=== PATIENT | female | born 1960 | race Caucasian/White ===

== ENCOUNTER 2018-07-17 16:22 | Outpatient (CLI) | payer MEDICAID, SELFPAY ==
--- NOTE | 2018-07-17 10:06 | DI.RAD_ITS ---
SYMPTOM/DIAGNOSIS: HEMOPTYSIS, URI R04.2, J06.9 PA AND LATERAL CHEST: Comparison is made with 26 Aug 2017. The heart size is within normal limits. The lungs appear clear. No infiltrate or effusion is seen. No mass visible. IMPRESSION: Negative chest x-ray.
== END 2018-07-17 16:42 ==
PROVIDERS: PCP Nurse Practitioner Family; Visit Provider Nurse Practitioner Family
DX: R04.2 Hemoptysis (principal); J06.9 Acute upper respiratory infection, unspecified
CPT/HCPCS: 71046

== ENCOUNTER 2018-12-24 11:32 | Outpatient (REF) | payer MEDICAID, SELFPAY ==
--- NOTE | 2018-12-24 10:30 | PAPFT_PTH ---
PATIENT: Susy So LOC: [facility] U#:[id number] AGE/SX: 58/F ROOM: RE12/24/[address]: Antoinette Harrison : 1960 BED: DIS: 12/24/2018 SPEC #: [id number] RECD: 12/25/18 13:07 STATUS: YEVGENIY REGalilea #: [id number] ANURADHA: 12/24/18 10:[address]: Antoinette Harrison DEPT: [facility] Cytology RECD BY: Grace Mccormick ENTERED: 12/25/18 13:07 SP TYPE: PAPFT OTHR DR: Paulina Alston Tissues: 1 - CX/ENDOCX FOR PAP SMEARS Procedures: PAP THIN PREP/UVM Screening HPV DNA PROBE Comments: [id number]
== END 2018-12-24 11:52 ==
LOC: NCHCN 11:32
PROVIDERS: PCP Nurse Practitioner Family; Visit Provider Family Medicine
DX: Z12.4 Encounter for screening for malignant neoplasm of cervix (principal); Z01.419 Encounter for gynecological examination (general) (routine) without abnormal findings; Z11.51 Encounter for screening for human papillomavirus (HPV); Z00.00 Encounter for general adult medical examination without abnormal findings
CPT/HCPCS: 88142; 87624

== ENCOUNTER 2019-11-15 13:10 | Outpatient (REF) | payer MEDICAID, SELFPAY ==
[2019-11-15 21:06] LABS: ALT 135 U/L (14-59); AST 57 U/L (15-37); Albumin 3.9 g/dL (3.4-5.0); Alkaline Phosphatase 90 U/L (46-116); Anion Gap 9.8 mmol/L (3-11); BUN 14 mg/dL (7-18); Bilirubin, Total 0.4 mg/dL (0.2-1.0); CO2 29.2 mmol/L (21.0-32.0); CREATININE 0.62 mg/dL (0.55-1.02); Calcium 9.1 mg/dL (8.5-10.1); Chloride 104 mmol/L (98-107); Glucose 79 mg/dL (74-106); Sodium 143 mmol/L (136-145); Total Protein 7.5 g/dL (6.4-8.2)
[2019-11-15 21:51] LABS: Abs Immature Grans 0.01 k/cumm (0.0-0.09); Absolute Basophil Count 0.02 k/cumm (0.0-0.2); Absolute Eosinophil Count 0.33 k/cumm (0.0-0.7); Absolute Lymphocyte Count 2.64 k/cumm (1.2-3.4); Absolute Monocyte Count 0.63 k/cumm (0.11-0.7); Absolute Neutrophil Count 6.03 k/cumm (1.2-6.7); Basophils % 0.2; Eosinophils % 3.4; HCT 41.3 % (36.0-46.0); HGB 13.8 g/dL (12.0-15.5); Immature Grans % 0.1 %; Lymphocytes % 27.3; Mean Corp. HGB Concentration 33.4 g/dL (32.0-36.0); Mean Corpuscular Hemoglobin 32.2 pg (27.0-33.0); Mean Corpuscular Volume 96.5 fL (80-95); Mean Platelet Volume 10.7 fL (8.0-11.0); Monocytes % 6.5; Neutrophils % 62.5; Platelet Count 276 x1000/uL (130-400); RBC 4.28 m/cumm (4.00-5.20); White Blood Cell Count 9.66 k/cumm (4.4-10.8)
== END 2019-11-15 13:30 ==
LOC: NCHCN 13:10
PROVIDERS: PCP Nurse Practitioner Family; Visit Provider Nurse Practitioner Family
DX: R10.32 Left lower quadrant pain (principal); K59.00 Constipation, unspecified; R03.0 Elevated blood-pressure reading, without diagnosis of hypertension; F41.8 Other specified anxiety disorders; J44.9 Chronic obstructive pulmonary disease, unspecified; G25.81 Restless legs syndrome
CPT/HCPCS: 80053; 85025

== ENCOUNTER 2019-11-19 03:30 | Outpatient (CLI) | payer MEDICAID, SELFPAY ==
--- NOTE | 2019-11-19 11:15 | DI.CT_ITS ---
EXAM: CT ABDOMEN PELVIS W CLINICAL HISTORY: LLQ ABD PAIN, R10.32, CONSTIPATION,K59.00. TECHNIQUE: Imaging Protocol: Axial computed tomography images with coronal and sagittal reformatted images were created and reviewed CONTRAST MATERIAL: Intravenous: Omnipaque 350 Contrast volume:100 ml Oral: yes COMPARISON: RENAL COLIC WO CONTRAST from 10/27/2008 FINDINGS: ABDOMEN: Lung Bases: Normal where visualized. Liver: Liver is enlarged and shows fatty infiltration.. No measurable mass. Gallbladder and biliary tract: Status post cholecystectomy. No radiodense calculus or dilation. Pancreas: Normal density, no abnormal calcifications or inflammatory process. Spleen: Normal. Kidneys: Normal size, contour and axis. No radiodense stones or obstructive uropathy. No masses seen. Adrenal glands: No masses seen. Abdominal Aorta: Abdominal portion non-dilated. Lvqp-al-cfwtreno calcification. There is a fatty containing umbilical hernia. PELVIS: Bladder: Symmetric distention, no gross wall thickening. Bowel: Sigmoid anastomosis. There are few scattered diverticula. There is no evidence of diverticul itis. There is a moderate quantity of stool. No obstruction or bowel wall thickening. The appendix appears normal. Peritoneal cavity: No ascites, collection or mesenteric inflammatory response. Bones: Degenerative disc changes in the lower thoracic and lumbar spine.. Reproductive organs: Within normal limits. Lymph nodes: Unremarkable. Impression: Unremarkable CT scan of the abdomen and pelvis. DATA REPOSITORY: All CT scans at this facility are submitted to the National Radiology Data Registry (NRDR) Dose Index Registry (DIR) with the [employer] (ACR). RADIATION OPTIMIZATION: All CT scans at this facility use at least one of these dose optimization te chniques: automated exposure control; mA and/or kV adjustment per patient size (includes targeted exa ms where dose is matched to clinical indication); or iterative reconstruction.
[2019-11-19] MEDS: Normal Saline - Diluent 50 ML VIAL IV (11:30)
[2019-11-19] MEDS: Omnipaque 350 MG/ML 100 ML BTL IJ ×2 (11:30→11:31)
== END 2019-11-19 03:50 ==
PROVIDERS: PCP Nurse Practitioner Family; Visit Provider Nurse Practitioner Family
DX: R10.32 Left lower quadrant pain (principal); K59.00 Constipation, unspecified; K76.0 Fatty (change of) liver, not elsewhere classified; R16.0 Hepatomegaly, not elsewhere classified; K42.9 Umbilical hernia without obstruction or gangrene; Z90.49 Acquired absence of other specified parts of digestive tract
CPT/HCPCS: 74177; J3490

== ENCOUNTER 2019-12-02 13:19 | Outpatient (REF) | payer MEDICAID, SELFPAY | END 2019-12-02 13:39 | LOC: NCHCN 13:19 | PROVIDERS: PCP Nurse Practitioner Family; Visit Provider Family Medicine | DX: R30.0 Dysuria (principal) | CPT/HCPCS: 87086 ==

== ENCOUNTER 2019-12-18 00:15 | Outpatient (CLI) | payer MEDICAID, SELFPAY ==
--- NOTE | 2019-12-18 | DI.US_ITS ---
EXAM: US RENAL PELVIC TRANSVAGINAL CLINICAL HISTORY: LLQ ABD PAIN, R10.32, DYSURIA,R30.0 TECHNIQUE: Ultrasound performed using standard protocol. COMPARISON: Cardiac from 04/07/2017 FINDINGS: The kidneys are normal in size and shape. There is no evidence of a renal mass, hydronephrosis, or n ephrolithiasis. Urinary bladder is unremarkable in appearance with pre and post void urinary bladder volume estimated at 179 cc and 25 cc respectively. Ureteral jets are noted bilaterally in the urinary bladder. Patient is reportedly status post bilateral oophorectomy. Uterus is unremarkable in appearance. End ometrial stripe is homogeneous and 3 millimeters in thickness. No free fluid identified in the cul-d e-sac. IMPRESSION: Negative pelvic/renal ultrasound. Prior bilateral oophorectomy noted. DATA REPOSITORY:
== END 2019-12-18 00:35 ==
PROVIDERS: PCP Nurse Practitioner Family; Visit Provider Nurse Practitioner Family
DX: R10.32 Left lower quadrant pain (principal); R30.0 Dysuria; Z90.722 Acquired absence of ovaries, bilateral
CPT/HCPCS: 76770; 76830; 76856

== ENCOUNTER 2020-03-02 09:41 | Outpatient (CLI) | payer MEDICAID, SELFPAY ==
[2020-03-04 09:56] LABS: SARS-CoV-2 RNA Undetected (Undetected); SARS-CoV-2 Specimen Source Nasopharynx
== END 2020-03-02 10:01 ==
PROVIDERS: PCP Nurse Practitioner Family; Visit Provider Nurse Practitioner Family
DX: Z11.59 Encounter for screening for other viral diseases (principal)
CPT/HCPCS: U0003

== ENCOUNTER 2020-09-02 10:54 | Outpatient (REF) | payer MEDICAID, SELFPAY ==
[2020-09-03 15:11] LABS: COVID-19 RT-PCR UVMMC Result Negative (Negative)
== END 2020-09-02 11:14 ==
LOC: NCHCN 10:54
PROVIDERS: PCP Nurse Practitioner Family; Visit Provider Nurse Practitioner Family
DX: Z20.822 Contact with and (suspected) exposure to COVID-19 (principal)
CPT/HCPCS: U0003

== ENCOUNTER 2020-09-07 17:53 | Outpatient (REF) | payer MEDICAID, SELFPAY ==
[2020-09-09 17:18] LABS: COVID-19 RT-PCR UVMMC Result Negative (Negative)
== END 2020-09-07 18:13 ==
LOC: NCHCN 17:53
PROVIDERS: PCP Nurse Practitioner Family; Visit Provider Nurse Practitioner Family
DX: Z20.822 Contact with and (suspected) exposure to COVID-19 (principal)
CPT/HCPCS: U0003

== ENCOUNTER 2020-10-07 10:07 | Outpatient (REF) | payer MEDICAID, SELFPAY ==
[2020-10-07 13:55] LABS: Abs Immature Grans 0.02 10^3/uL (0.0-0.06); Absolute Basophil Count 0.03 10^3/uL (0.0-0.2); Absolute Eosinophil Count 0.38 10^3/uL (0.0-0.7); Absolute Lymphocyte Count 1.93 10^3/uL (1.2-3.4); Absolute Monocyte Count 0.47 10^3/uL (0.1-0.8); Basophils % 0.4; Eosinophils % 4.7; HCT 41.7 % (36.0-46.0); HGB 13.9 g/dL (11.2-15.7); Immature Grans % 0.2; Lymphocytes % 23.7; MCH 32.2 pg (27.0-33.0); MCHC 33.3 % (32.0-36.0); MCV 96.5 fL (80-95); MPV 10.9 fL (8.0-11.0); Monocytes % 5.8; Neutrophils % 65.2; Nucleated RBC 0 %; Platelet Count 236 10^3/uL (130-400); RBC 4.32 10^6/uL (3.93-5.22); RDW 12.2 % (11.7-14.6); WBC 8.13 10^3/uL (4.4-10.8)
[2020-10-07 14:49] LABS: ALT 89 U/L (14-59); AST 31 U/L (15-37); Albumin 3.8 g/dL (3.4-5.0); Alkaline Phosphatase 89 U/L (46-116); BUN 13 mg/dL (7-18); Bilirubin, Total 0.3 mg/dL (0.2-1.0); CREATININE 0.6 mg/dL (0.55-1.02); Calculated LDL 109 mg/dL (<100); Chloride 106 mmol/L (98-107); Cholesterol 182 mg/dL (<200); Glucose 101 mg/dL (74-106); HDL Cholesterol 56 mg/dL (40-60); Magnesium 2.1 mg/dL (1.8-2.4); Potassium 4.3 mmol/L (3.5-5.1); Sodium 142 mmol/L (136-145); TSH (W/Ref FT4) 3.89 uIU/mL (0.36-3.74); Total Protein 7.4 g/dL (6.4-8.2); Triglyceride 89 mg/dL (<150); Vitamin B12 522 pg/mL (193-986)
[2020-10-07 15:07] LABS: FREE T4 0.98 ng/dL (0.76-1.46)
[2020-10-08 10:28] LABS: Hepatitis A Antibody IgM Negative (Negative); Hepatitis B Core Antibody Negative (Negative); Hepatitis B surface Ag Negative (Negative); Hepatitis C Ab w Rflx HCV PCR Negative (Negative)
== END 2020-10-07 10:08 | disposition home or self-care (01) ==
LOC: NCHCN 10:07
PROVIDERS: PCP Nurse Practitioner Family; Visit Provider Nurse Practitioner Family
DX: R74.01 Elevation of levels of liver transaminase levels (principal); K76.0 Fatty (change of) liver, not elsewhere classified; R53.83 Other fatigue; R03.0 Elevated blood-pressure reading, without diagnosis of hypertension; R79.89 Other specified abnormal findings of blood chemistry
CPT/HCPCS: 80053; 80061; 86704; 86709; 86803; 87340; 82607; 83735; 84439; 84443; 85025

== ENCOUNTER 2020-11-24 08:34 | Outpatient (REF) | payer MEDICAID, SELFPAY ==
[2020-11-25 18:30] LABS: COVID-19 RT-PCR UVMMC Result Negative (Negative)
== END 2020-11-24 08:35 | disposition home or self-care (01) ==
LOC: NCHCN 08:34
PROVIDERS: PCP Nurse Practitioner Family; Visit Provider Nurse Practitioner Family
DX: Z20.822 Contact with and (suspected) exposure to COVID-19 (principal)
CPT/HCPCS: U0003

== ENCOUNTER 2021-01-29 16:51 | Outpatient (REF) | payer MEDICAID, SELFPAY ==
[2021-01-29 20:05] LABS: Abs Immature Grans 0.04 10^3/uL (0.0-0.06); Absolute Eosinophil Count 0.59 10^3/uL (0.0-0.7); Basophils % 0.4; Eosinophils % 5.2; HCT 42.3 % (36.0-46.0); HGB 14.2 g/dL (11.2-15.7); Immature Grans % 0.4; Lymphocytes % 20.8; MCH 32.6 pg (27.0-33.0); MCHC 33.6 % (32.0-36.0); MPV 10.5 fL (8.0-11.0); Monocytes % 5.7; Neutrophils % 67.5; Nucleated RBC 0 %; Platelet Count 297 10^3/uL (130-400); RBC 4.36 10^6/uL (3.93-5.22); RDW 12.6 % (11.7-14.6); RDW-SD 45.5 fL; WBC 11.32 10^3/uL (4.4-10.8)
[2021-01-29 20:08] LABS: Absolute Basophil Count 0.05 10^3/uL (0.0-0.2); Absolute Lymphocyte Count 2.35 10^3/uL (1.2-3.4); Absolute Monocyte Count 0.65 10^3/uL (0.1-0.8); Absolute Neutrophil Count 7.64 10^3/uL (1.2-6.7)
[2021-01-29 20:29] LABS: ALT 87 U/L (14-59); AST 49 U/L (15-37); Albumin 3.7 g/dL (3.4-5.0); Alkaline Phosphatase 97 U/L (46-116); Anion Gap 9.7 mmol/L (3-11); BUN 13 mg/dL (7-18); Bilirubin, Total 0.3 mg/dL (0.2-1.0); CO2 29.3 mmol/L (21.0-32.0); CREATININE 0.7 mg/dL (0.55-1.02); Calcium 9.1 mg/dL (8.5-10.1); Chloride 104 mmol/L (98-107); Glucose 105 mg/dL (74-106); Magnesium 2.2 mg/dL (1.8-2.4); NT-proBNP 33 pg/mL (<300); Sodium 143 mmol/L (136-145); Total Protein 7.4 g/dL (6.4-8.2)
[2021-01-29 21:05] LABS: Vitamin B12 495 pg/mL (193-986)
[2021-01-29 21:19] LABS: Iron 100 ug/dL (50-170); Total Iron Binding Capacity 293 ug/dL (250-450); Transferrin Sat 34 % (15-50)
== END 2021-01-29 16:52 | disposition home or self-care (01) ==
LOC: NCHCN 16:51
PROVIDERS: PCP Nurse Practitioner Family; Visit Provider Nurse Practitioner Family
DX: R60.0 Localized edema (principal); R79.89 Other specified abnormal findings of blood chemistry; R74.01 Elevation of levels of liver transaminase levels; R73.01 Impaired fasting glucose; N39.46 Mixed incontinence; R07.9 Chest pain, unspecified; R53.83 Other fatigue; R49.0 Dysphonia
CPT/HCPCS: 80053; 82607; 83540; 83550; 83735; 83880; 85025

== ENCOUNTER 2021-02-09 12:45 | Outpatient (REF) | payer MEDICAID, SELFPAY ==
[2021-02-09 13:42] LABS: Anion Gap 9.3 mmol/L (3-11); BUN 16 mg/dL (7-18); CO2 29.7 mmol/L (21.0-32.0); CREATININE 0.8 mg/dL (0.55-1.02); Calcium 8.7 mg/dL (8.5-10.1); Chloride 104 mmol/L (98-107); Glucose 91 mg/dL (74-106); Potassium 3.9 mmol/L (3.5-5.1); Sodium 143 mmol/L (136-145)
== END 2021-02-09 12:46 | disposition home or self-care (01) ==
LOC: LBN 12:45
PROVIDERS: PCP Nurse Practitioner Family
DX: R07.9 Chest pain, unspecified (principal)
CPT/HCPCS: 36415; 80048

== ENCOUNTER 2021-03-11 15:52 | Emergency (ER) | payer MEDICAID, SELFPAY ==
[2021-03-11] VITALS (10 sets, daily range): BP systolic 132–159; BP diastolic 69–93; PULSE 70–87; RESP 12–27; TEMP 36.4–37.2; O2SAT 91–99
--- NOTE | 2021-03-11 16:23 | ED.GENADUL_ITS ---
Discharge Plan Disposition Patient Disposition: HOME Condition: Stable Discharge Details Clinical Impression: Lumbago with sciatica, right side Primary Care Provider: Paulina Alston ED Provider: Viky Orellana Home Meds and New Rx's Prescriptions: New cyclobenzaprine 10 mg tablet 10 mg PO TID PRN (Reason: muscle spasm) Qty: 10 RF: 0 No Action polyethylene glycol 3350 17 GM powder in packet 1 tbs PO DAILY RF: 0 dimenhydrinate [Dramamine] 50 MG tablet 50 mg PO Q6H PRNRF: 0 triamcinolone acetonide 15 GM ointment 1 applic Topical BID RF: 0 albuterol sulfate [Ventolin HFA] 200 PUFF HFA aerosol inhaler 2 puff Inhalation QID PRNRF: 0 clotrimazole 15 GM cream 1 applic Topical BID RF: 0 omeprazole magnesium [Prilosec OTC] 20 MG tablet,delayed release (DR/EC) 20 mg PO PRN PRNRF: 0 dextromethorphan-guaifenesin 5 ML syrup 10 ml PO Q4H PRN PRNQty: 1 RF: 0 hydromorphone [Dilaudid] 2 MG tablet 2 mg PO QID PRN PRNQty: 20 RF: 0 albuterol sulfate 2.5 MG/3 ML solution for nebulization 2.5 mg Inhalation Q4H PRN PRNQty: 30 RF: 0 ibuprofen 800 MG tablet 800 mg PO Q8H PRN PRN (Reason: Pain) Qty: 30 RF: 0 dexamethasone 4 MG tablet 8 mg PO DAILY 3 Days Qty: 6 RF: 0 azithromycin 250 MG tablet 250 mg PO DAILY 4 Days Qty: 4 RF: 0 hydrocodone-homatropine 1 ML syrup 5 ml PO Q6H PRN PRN (Reason: Cough) Qty: 40 RF: 0 bupropion HCl 150 MG tablet extended release 12 hr 150 mg PO BID RF: 0 benzonatate 100 MG capsule 100 mg PO Q8H PRNRF: 0 pramipexole [Mirapex] 0.25 MG tablet 0.25 mg PO DAILY RF: 0 montelukast [Singulair] 10 MG tablet 10 mg PO DAILY RF: 0 fluticasone propionate [Flonase Allergy Relief] 9.9 ML spray,suspension 1 spray IN DIRECTED RF: 0 fluticasone propion-salmeterol [Advair Diskus] 1 EACH blister with device 2 puff Inhalation BID RF: 0 nitroglycerin [Nitrostat] 0.4 MG tablet, sublingual 0.4 mg Sublingual Q5 MIN PRN X3 PRNQty: 50 RF: 0 Discharge Instructions Instructions: Osteoarthritis (ED), Sciatica (ED), Lower Back Exercises (ED) Additional Instructions: At this time CT shows no evidence for kidney stone you do have some degenerative changes noted to your L-spine which I suspect is causing pressure on your sciatic nerve. Please take the muscle relaxers and tramadol as prescribed. Please take Tylenol or Ibuprofen with food every 4-6 hours as needed for pain and swelling. Return to ED or be seen sooner for any loss of bowel or bladder control, numbness around your groin, leg weakness, inability to urinate or have a bowel movement. Referrals: Paulina Alston [Primary Care Provider] - Medical Decision Making 61-year-old female with a past medical history of CHF, COPD, kidney stones, migraine, multiple sclerosis and anxiety presents to the ER with chief complaint of right lower back pain which radiates down her right leg and toes and some right sided abdominal discomfort. Been ongoing for last 3 days has worsened ov er the last few days. Surgical history includes cholecystectomy, colectomy, C- section, hysterectomy and knee surgery At this time CBC, CMP, urinalysis ordered. CT abdomen pelvis without contrast CT L-spine ordered. Patient has a past medical history of a kidney mass and a liver mass that she is being worked up through [facility]. She reports increased back pain radiating to her right leg over the last 3 days. Denies any loss of bowel or bladder control, no saddle anesthesia denies any recent heavy lifting. Differential diagnosis includes but not limited to kidney stone, sciatica, appendicitis 1810: Patient reevaluation: Patient is able to move her right lower extremity she does report improvement somewhat in the pain does still have some intermittent sharp shooting pains. 2.5 mg of Valium ordered IV at this time. 1914: Patient reevaluation: Patient states that the Valium did little to nothing to relieve her pain she begins crying palm my entering into the room. Patient states that she is not actually allergic to the narcotics listed on her allergy list. FINDINGS: Liver: Normal. No mass. Gallbladder and bile ducts: Prior cholecystectomy. No biliary duct dilatation. Pancreas: Normal. No ductal dilation. Spleen: Normal. No splenomegaly. Adrenal glands: Normal. No mass. Kidneys and ureters: Ptotic position of both kidneys. Kidneys and ureters are otherwise unremarkable. No urolithiasis or hydroureteronephrosis. Stomach and bowel: Small supraumbilical ventral hernia contains a knuckle of transverse colon. No evidence of strangulation. No obstruction. Stomach is unremarkable. Appendix: Normal appendix. Intraperitoneal space: Unremarkable. No free air. No significant fluid collection. Vasculature: Multiple pelvic phleboliths. Mild calcified atherosclerotic disease. No aneurysm. Lymph nodes: Unremarkable. No enlarged lymph nodes. Urinary bladder: Unremarkable as visualized. Reproductive: Unremarkable as visualized. Bones/joints: Marked multilevel lower lumbar facet arthropathy. 2 mm grade 1 anterolisthesis at L4- L5. Vertebral body heights and disc spaces are maintained. Mild to moderate bilateral hip joint degenerative disease. No acute fracture or focal suspicious osseous lesion. Soft tissues: Broad-based fat filled umbilical hernia. IMPRESSION: 1. Umbilical hernia and supraumbilical ventral hernia without complication. 2. Lower lumbar facet arthropathy. 3. Lsdh-hc-yjhfabow bilateral hip joint degenerative disease Discussed CT with patient who verbalizes understanding. At this time there is no evidence of kidney stone, there is some lumbar facet arthropathy and L4-L5 anterior listhesis. Also bilateral hip joint degenerative disease. I do feel this is the cause of her right-sided sciatica pain. Discussed return inst ructions with patient who verbalized understanding. Patient was given tramadol and Flexeril to go and instructions to follow-up with PCP. I did discuss strict return instructions with patient and red flags. This text was generated using Bridgeation system, please disregard any oddities of phrase or misspellings. HPI General Date/Time Provider Initiated Documentation: 03/11/21 16:14 . Limitations to Documentation: no limitations . Information obtained by: patient, RN notes reviewed and old records reviewed . HPI Narrative: 61-year-old female with a past medical history of CHF, COPD, kidney stones, migraine, multiple sclerosis and anxiety presents to the ER with chief complaint of right lower back pain which radiates down her right leg and toes and some right sided abdominal discomfort. Been ongoing for last 3 days has worsened over the last few days. Surgical history includes cholecystectomy, colectomy, , hysterectomy and knee surgery Related Data Home Medications Medication Instructions Recorded Confirmed albuterol sulfate [Ventolin HFA] 2 puff INHALATION QID PRN 08/03/15 08/26/17 clotrimazole 1 applic TOPICAL BID 08/03/15 08/26/17 dimenhydrinate [Dramamine] 50 mg PO Q6H PRN 08/03/15 08/26/17 omeprazole magnesium [Prilosec OTC] 20 mg PO PRN PRN 08/03/15 04/06/17 polyethylene glycol 3350 1 tbs PO DAILY 08/03/15 08/26/17 triamcinolone acetonide 1 applic TOPICAL BID 08/03/15 08/26/17 albuterol sulfate 2.5 mg INHALATION Q4H PRN PRN #30 08/06/15 08/26/17 ml dextromethorphan-guaifenesin 10 ml PO Q4H PRN PRN #1 btl 08/06/15 08/26/17 hydromorphone [Dilaudid] 2 mg PO QID PRN PRN #20 tablet 08/06/15 08/26/17 ibuprofen 800 mg PO Q8H PRN PRN #30 tab 11/22/15 08/26/17 benzonatate 100 mg PO Q8H PRN 04/06/17 08/26/17 bupropion HCl 150 mg PO BID 04/06/17 08/26/17 fluticasone propion-salmeterol 2 puff INHALATION BID 04/06/17 08/26/17 [Advair Diskus] fluticasone propionate [Flonase 1 spray IN DIRECTED 04/06/17 08/26/17 Allergy Relief] montelukast [Singulair] 10 mg PO DAILY 04/06/17 08/26/17 pramipexole [Mirapex] 0.25 mg PO DAILY 04/06/17 08/26/17 nitroglycerin [Nitrostat] 0.4 mg SUBLINGUAL Q5 MIN PRN X3 04/08/17 08/26/17 PRN #50 tab.subl azithromycin 250 mg PO DAILY 4 Days #4 tablet 08/26/17 dexamethasone 8 mg PO DAILY 3 Days #6 tab 08/26/17 hydrocodone-homatropine 5 ml PO Q6H PRN PRN #40 ml 08/26/17 cyclobenzaprine 10 mg PO TID PRN #10 tab 03/11/21 Previous Rx's Medication Instructions Recorded albuterol sulfate 2.5 mg INHALATION Q4H PRN PRN #30 08/06/15 ml dextromethorphan-guaifenesin 10 ml PO Q4H PRN PRN #1 btl 08/06/15 hydromorphone [Dilaudid] 2 mg PO QID PRN PRN #20 tablet 08/06/15 ibuprofen 800 mg PO Q8H PRN PRN #30 tab 11/22/15 nitroglycerin [Nitrostat] 0.4 mg SUBLINGUAL Q5 MIN PRN X3 04/08/17 PRN #50 tab.subl azithromycin 250 mg PO DAILY 4 Days #4 tablet 08/26/17 dexamethasone 8 mg PO DAILY 3 Days #6 tab 08/26/17 hydrocodone-homatropine 5 ml PO Q6H PRN PRN #40 ml 08/26/17 cyclobenzaprine 10 mg PO TID PRN #10 tab 03/11/21 Allergies Allergy/AdvReac Type Severity Reaction Status Date / Time acetaminophen [From Vicodin] AdvReac Mild Unverified 03/11/21 16:14 hydrocodone [From Vicodin] AdvReac Mild Unverified 03/11/21 16:14 codeine [Codeine] AdvReac VOMITING Unverified 03/11/21 16:14 oxycodone HCl [From Percocet] AdvReac VOMITING Unverified 03/11/21 16:14 General Stated Complaint: Orthopedic SHRUTHI: 3 Review of Systems All systems reviewed & are unremarkable except as noted in HPI and below Constitutional Constitutional: Denies fever(s), Denies frequent falls and Denies weakness Cardiovascular Cardiovascular: Denies chest pain, Denies pedal edema, Denies lightheadedness and Denies dyspnea Respiratory Respiratory: Denies dyspnea Gastrointestinal Gastrointestinal: Reports abdominal pain, Denies bloating, Denies fecal incontinence, Denies diarrhea, Denies nausea and Denies vomiting Genitourinary Genitourinary: Denies urinary frequency, Denies difficulty voiding, Denies urinary incontinence, Denies urinary hesitancy and Denies urinary urgency Musculoskeletal Musculoskeletal: Reports as per HPI, Reports back pain, Denies atrophy, Denies deformity, Denies muscle weakness and Reports radiating pain into limb (Right leg) Neurologic Neurologic: Denies frequent falls and Denies weakness PFSH Social History Smoking/Tobacco Use Status: Current every day Tobacco Type: cigarettes Smoking risk assessment performed?: Yes Alcohol Intake: never Drug use: Never Substance use type: does not use Do you feel safe at home: Yes Do you feel safe in your relationship?: Yes Exam Narrative Exam Narrative: Constitutional: Alert and oriented x3. Appears stated age. Normal body habitus. Head: Normocephalic, no trauma. Eyes: Pupils PERRLA, Red reflex noted, EOM's intact. Eyelids symmetrical without lesions, discharge, or swelling. ENT: Bilateral TM's WNL, External ear normal to inspection, no mastoid TTP, swelling, or erythema, Nasal turbinates WNL, no nasal discharge. Normal dentition, Posterior pharynx WNL, no exudate. Chest: RRR, Normal S1, S2, distal pulses intact. Resp: Lungs clear to auscultation bilaterally, no wheezes, rales, or rhonchi. Musculoskeletal: Normal gait, 5/5 strength to all four extremities. Skin: No suspicious rashes or lesions. Capillary refill less than 2 sec. Neurologic: Cranial nerves II-XII intact. Alert and oriented x 3. DTR's intact. Hematologic/Lymphatic: No ecchymosis, no lymphadenopathy. Course Vital Signs Vital signs: Vital Signs Temperature 37.2 C 03/11/21 16:09 Pulse 87 03/11/21 16:09 Blood Pressure 159/93 H 03/11/21 16:09 Pulse Oximetry 91 L 03/11/21 16:09 Temperature 37.2 C 03/11/21 16:09 Temperature Source Oral 03/11/21 16:09 Pulse 87 03/11/21 16:09 Respiratory Effort Incrsd Work of Breathing 03/11/21 16:12 Blood Pressure 159/93 H 03/11/21 16:09 Blood Pressure Position Sitting 03/11/21 16:09 Pulse Oximetry 91 L 03/11/21 16:09 Oxygen Delivery Method Room Air 03/11/21 16:09 Oxygen Flow Rate 0 03/11/21 16:09 Pain Level 10 03/11/21 16:09
--- NOTE | 2021-03-11 17:08 | DI.CT_ITS ---
Exam(s) CT LUMBAR SPINE RECONS CT RENAL COLIC WO EXAM: CT RENAL COLIC WO CLINICAL HISTORY: Right Flank pain. TECHNIQUE: Imaging Protocol: Axial computed tomography images with coronal and sagittal reformatted images were created and reviewed. CONTRAST MATERIAL: Noncontrast COMPARISON: CT CT ABDOMEN PELVIS W from 11/19/[address] LUMBAR SPINE RECONS from 03/11/[address] LUMBAR SPINE RECONS from 03/11/2021 FINDINGS: ABDOMEN: Lung Bases: Normal where visualized. Liver: Enlarged. Fatty infiltration.. No measurable mass. Gallbladder and biliary tract: Status post cholecystectomy. No radiodense calculus or dilation. Pancreas: Normal density, no calcifications or inflammatory process. Spleen: Normal. Kidneys: Normal size, contour and axis. No radiodense stones or obstructive uropathy. No masses seen. Adrenal glands: No masses seen. Abdominal Aorta: Abdominal portion non-dilated. Ootj-qr-kgqsiggj atherosclerotic changes. Soft tissues: Air in the left anterior abdominal wall consistent with injection sites. Small fat cont aining umbilical hernia. Additional hernia directly superior to the umbilicus into which enters a sma ll portion of the transverse colon. There is no evidence of incarceration.. There is an additional fa tty containing hernia below the level of the umbilicus. Bones: Degenerative changes of the facet joints and hip joints. PELVIS: Bladder: Symmetric distention, no gross wall thickening. Bowel: No obstruction or bowel wall thickening. Normal appendix. Peritoneal cavity: No ascites, collection or mesenteric inflammatory response. CT OF THE LUMBAR SPINE: Axial, coronal and sagittal images were reconstructed from the abdomen and pelvic CT. There is no evidence compression fracture. There are small endplate osteophytes greater in the lower thoracic region. The disc spaces are well maintained. There are facet degenerative changes from L3 -4 through L5-S1, most prominent at L4-5. This causes mild spondylolisthesis. There is minimal disc bulging at these levels. There is mild bilateral neural foraminal narrowing at L3-4 and L5-S1 and mo derate neural foraminal narrowing at L4-5 bilaterally. There is no gross disc herniation. No signific ant central canal stenosis. IMPRESSION: 1. Renal colic CT: No evidence of hydronephrosis or urinary tract calculi. Abdominal wall hernias wit hout evidence of incarceration. 2. Lumbar spine: Facet degenerative changes causing bilateral neural foraminal narrowing, moderate at L4-5 bilaterally. No gross evidence of a disc herniation. RADIATION DOSE DELIVERED: Total DLP DATA REPOSITORY: All CT scans at this facility are submitted to the National Radiology Data Registry (NRDR) Dose Index Registry (DIR) with the [employer] (ACR). RADIATION OPTIMIZATION: All CT scans at this facility use at least one of these dose optimization te chniques: automated exposure control; mA and/or kV adjustment per patient size (includes targeted exa ms where dose is matched to clinical indication); or iterative reconstruction.
[2021-03-11 17:15] LABS: Bilirubin Negative (Negative); Blood Negative (Negative); Clarity Clear (Clear); Glucose Negative (Negative); Ketones Negative (Negative); Leukocyte Esterase Negative (Negative); Nitrite Negative (Negative); Specific Gravity 1.015 (1.005-1.025); Urobilinogen 0.2 EU/dL (Up TO 0.2)
[2021-03-11 17:43] LABS: HCT 42.3 % (36.0-46.0); HGB 13.8 g/dL (11.2-15.7); MCH 32.5 pg (27.0-33.0); MCHC 32.6 % (32.0-36.0); MCV 99.5 fL (80-95); MPV 9.6 fL (8.0-11.0); Platelet Count 219 10^3/uL (130-400); RBC 4.25 10^6/uL (3.93-5.22); RDW 12.8 % (11.7-14.6); RDW-SD 47.5 fL; WBC 10.42 10^3/uL (4.4-10.8)
[2021-03-11] MEDS: Normal Saline 1,000 ML 150 ML IV (17:44)
[2021-03-11] MEDS: Ketorolac 15 MG/ML VIAL IVP (17:45)
[2021-03-11] MEDS: Orphenadrine 60 MG/2 ML VIAL IVP (17:47)
[2021-03-11 18:01] LABS: ALT 120 U/L (14-59); AST 67 U/L (15-37); Albumin 3.5 g/dL (3.4-5.0); Alkaline Phosphatase 89 U/L (46-116); BUN 11 mg/dL (7-18); Bilirubin, Total 0.2 mg/dL (0.2-1.0); CREATININE 0.7 mg/dL (0.55-1.02); Calcium 8.7 mg/dL (8.5-10.1); Chloride 105 mmol/L (98-107); Glucose 93 mg/dL (74-106); Potassium 3.8 mmol/L (3.5-5.1); Sodium 143 mmol/L (136-145); Total Protein 7.5 g/dL (6.4-8.2)
[2021-03-11] MEDS: diazePAM 10 MG/2 ML SYR 2.5 MG IVP (18:21)
[2021-03-11] MEDS: HYDROmorphone 2 MG/ML VIAL 0.5 MG IVP (19:22)
--- NOTE | 2021-03-11 19:32 | DI.VRAD_ITS ---
PROCEDURE INFORMATION: Exam: CT Abdomen And Pelvis Without Contrast Exam date and time: 03/11/2021 5:12 PM Age: 61 years old Clinical indication: Other: Right flank pain TECHNIQUE: Imaging protocol: Computed tomography of the abdomen and pelvis without contrast. Radiation optimization: All CT scans at this facility use at least one of these dose optimization techniques: automated exposure control; mA and/or kV adjustment per patient size (includes targeted exams where dose is matched to clinical indication); or iterative reconstruction. COMPARISON: CT ABDOMEN PELVIS W 11/19/2019 11:09 AM FINDINGS: Liver: Normal. No mass. Gallbladder and bile ducts: Prior cholecystectomy. No biliary duct dilatation. Pancreas: Normal. No ductal dilation. Spleen: Normal. No splenomegaly. Adrenal glands: Normal. No mass. Kidneys and ureters: Ptotic position of both kidneys. Kidneys and ureters are otherwise unremarkable. No urolithiasis or hydroureteronephrosis. Stomach and bowel: Small supraumbilical ventral hernia contains a knuckle of transverse colon. No evidence of strangulation. No obstruction. Stomach is unremarkable. Appendix: Normal appendix. Intraperitoneal space: Unremarkable. No free air. No significant fluid collection. Vasculature: Multiple pelvic phleboliths. Mild calcified atherosclerotic disease. No aneurysm. Lymph nodes: Unremarkable. No enlarged lymph nodes. Urinary bladder: Unremarkable as visualized. Reproductive: Unremarkable as visualized. Bones/joints: Marked multilevel lower lumbar facet arthropathy. 2 mm grade 1 anterolisthesis at L4-L5. Vertebral body heights and disc spaces are maintained. Mild to moderate bilateral hip joint degenerative disease. No acute fracture or focal suspicious osseous lesion. Soft tissues: Broad-based fat filled umbilical hernia. IMPRESSION: 1. Umbilical hernia and supraumbilical ventral hernia without complication. 2. Lower lumbar facet arthropathy. 3. Andk-no-kgomhcew bilateral hip joint degenerative disease. Dictated and Authenticated by: Gage Crow MD. Ordering:DAVID Salmon MD
--- NOTE | 2021-03-11 19:55 | DI.VRAD_ITS ---
PROCEDURE INFORMATION: Exam: CT Lumbar Spine Without Contrast Exam date and time: 03/11/2021 5:14 PM Age: 61 years old Clinical indication: Other: Right side sciatica TECHNIQUE: Imaging protocol: Computed tomography images of the lumbar spine without contrast. Radiation optimization: All CT scans at this facility use at least one of these dose optimization techniques: automated exposure control; mA and/or kV adjustment per patient size (includes targeted exams where dose is matched to clinical indication); or iterative reconstruction. COMPARISON: CT ABDOMEN PELVIS W 11/19/2019 11:09 AM FINDINGS: Vertebrae: Vertebral body heights and disc spaces are maintained. 2 mm anterolisthesis at L4-L5. No fracture or dislocation. L1-L2: No significant disc protrusion. No severe spinal canal stenosis. No significant neural foraminal narrowing. L2-L3: Facet arthropathy. No significant disc protrusion. No severe spinal canal stenosis. No significant neural foraminal narrowing. L3-L4: Facet arthropathy. No significant disc protrusion. No severe spinal canal stenosis. Mild left neural foraminal narrowing. L4-L5: Facet arthropathy. No significant disc protrusion. No severe spinal canal stenosis. No significant neural foraminal narrowing. L5-S1: Facet arthropathy. No significant disc protrusion. No severe spinal canal stenosis. Moderate left neural foraminal narrowing. Sacrum/coccyx: Mild bilateral sacroiliac joint degenerative changes. Vasculature: Calcified atherosclerotic disease. No aneurysm. Soft tissues: Unremarkable. IMPRESSION: He for 1. No acute abnormality. 2. Multilevel facet arthropathy, detailed above. Dictated and Authenticated by: Gage Crow MD. Ordering:DAVID Salmon MD
[2021-03-11] MEDS: Cyclobenzaprine 10 MG TAB, 3 TABS/BTL PO (19:57)
[2021-03-11] MEDS: HYDROmorphone 2 MG/ML VIAL 0.5 MG IM (20:21)
== END 2021-03-11 20:27 | disposition home or self-care (01) ==
PROVIDERS: Emergency Provider Registered Nurse Emergency; PCP Nurse Practitioner Family
DX: M54.41 Lumbago with sciatica, right side (principal); R10.31 Right lower quadrant pain
CPT/HCPCS: 36415; 80053; 85027; 96361; 96372; 96374; 96375; 99285; J2360; 74176; 81003; 99284; J1885; J3360

== ENCOUNTER 2021-06-15 09:57 | Emergency (ER) | payer MEDICAID, SELFPAY ==
[2021-06-15] VITALS (50 sets, daily range): BP systolic 114–150; BP diastolic 65–82; PULSE 57–91; RESP 15–40; TEMP 36.3; O2SAT 86–98
--- NOTE | 2021-06-15 09:59 | ED.GENADUL_ITS ---
Discharge Plan Disposition Patient Disposition: HOME Condition: Improving Discharge Details Clinical Impression: Acute exacerbation of chronic obstructive pulmonary disease Primary Care Provider: Paulina Alston ED Provider: Manjula Addison Home Meds and New Rx's Prescriptions: New doxycycline hyclate 100 mg tablet 100 mg PO BID 7 Days Qty: 14 RF: 0 prednisone 20 mg tablet See Rx Instructions .ROUTE .COMPLEX Qty: 18 RF: 0 codeine-guaifenesin [Guaifenesin AC] 10-100 mg/5 mL liquid 5 ml PO Q6H PRN (Reason: cough) Qty: 120 RF: 0 Continued polyethylene glycol 3350 17 GM powder in packet 1 tbs PO DAILY RF: 0 dimenhydrinate [Dramamine] 50 MG tablet 50 mg PO Q6H PRNRF: 0 triamcinolone acetonide 15 GM ointment 1 applic Topical BID RF: 0 albuterol sulfate [Ventolin HFA] 200 PUFF HFA aerosol inhaler 2 puff Inhalation QID PRNRF: 0 clotrimazole 15 GM cream 1 applic Topical BID RF: 0 omeprazole magnesium [Prilosec OTC] 20 MG tablet,delayed release (DR/EC) 20 mg PO PRN PRNRF: 0 dextromethorphan-guaifenesin 5 ML syrup 10 ml PO Q4H PRN PRNQty: 1 RF: 0 hydromorphone [Dilaudid] 2 MG tablet 2 mg PO QID PRN PRNQty: 20 RF: 0 albuterol sulfate 2.5 MG/3 ML solution for nebulization 2.5 mg Inhalation Q4H PRN PRNQty: 30 RF: 0 hydrocodone-homatropine 1 ML syrup 5 ml PO Q6H PRN PRN (Reason: Cough) Qty: 40 RF: 0 sennosides [Senna Laxative] 8.6 mg tablet 8.6 mg PO HS RF: 0 duloxetine 30 mg capsule,delayed release(DR/EC) 30 mg PO DAILY RF: 0 lactulose 10 gram/15 mL solution 15 ml PO .2-3 TIMES DAILY RF: 0 Trelegy Ellipta 200-62.5-25 mcg blister with device 1 inh INHALATION DAILY RF: 0 gabapentin 600 mg tablet 600 mg PO TID RF: 0 atorvastatin 20 mg tablet 20 mg PO DAILY RF: 0 aspirin 81 mg Tablet,Delayed Release (Dr/Ec) 81 mg PO DAILY RF: 0 spironolactone 25 mg tablet 25 mg PO DAILY RF: 0 pramipexole 0.5 mg tablet 0.5 mg PO HS RF: 0 lidocaine [Lidoderm] 5 % Adhesive Patch,Medicated 1 patch TOPICAL DAILY RF: 0 betamethasone dipropionate 0.05 % Cream 1 applic TOPICAL DAILY PRNRF: 0 vitamin B complex [Vitamins B Complex] Tablet 1 tab PO HS RF: 0 hydroxyzine HCl 25 mg tablet 25 mg PO TID PRN PRNRF: 0 zolpidem 5 mg tablet 5 mg PO HS PRN PRNRF: 0 docusate sodium [DOK] 100 mg tablet 100 mg PO BID PRN PRNRF: 0 loratadine 10 mg tablet 10 mg PO DAILY RF: 0 oxycodone 5 mg tablet 5 mg PO BID RF: 0 acidophilus-pectin, citrus 25 million cell -100 mg tablet 1 tab PO DAILY RF: 0 Emgality Pen 120 mg/mL pen injector 120 mg SUBCUT Q30D RF: 0 Oxygen 2l/Min 2 RF: 0 benzonatate 100 MG capsule 100 mg PO Q8H PRNRF: 0 pramipexole [Mirapex] 0.25 MG tablet 0.25 mg PO DAILY RF: 0 montelukast [Singulair] 10 MG tablet 10 mg PO DAILY RF: 0 fluticasone propionate [Flonase Allergy Relief] 9.9 ML spray,suspension 1 spray IN DIRECTED RF: 0 nitroglycerin [Nitrostat] 0.4 MG tablet, sublingual 0.4 mg Sublingual Q5 MIN PRN X3 PRNQty: 50 RF: 0 cyclobenzaprine 10 mg tablet 10 mg PO TID PRN (Reason: muscle spasm) Qty: 10 RF: 0 Discharge Instructions Instructions: COPD (Chronic Obstructive Pulmonary Disease) (ED) Additional Instructions: Your lab work and imaging today is reassuring and does not note any acute significant findings. Your Covid test was negative. Your CT scan did not note evidence of a blood clot or pneumonia in your lungs. It is suspected at this time that your symptoms are due to a COPD exacerbation or bronchitis. Drink plenty of fluids and get plenty of rest. Prescriptions for steroids, cough medication and an antibiotic have been sent electronically to your pharmacy. Start the steroid prescription tomorrow and take this as directed until finished. Take the cough medication as needed and directed. You do not have to start the antibiotic right away. If you have no relief or worsening symptoms in the next few days, you can start the an tibiotics. Call your primary care doctor tomorrow to schedule a follow-up appointment for reevaluation within the next week and for referral for evaluation with pulmonology with likely plan for repeat pulmonary function test for evaluation of your lung function and your COPD. Return here immediately if you develop any worsening or new concerning symptoms such as fever, worsening breathing or any other concerns. Discharge Data Discharge Date/Time-TO BE ENTERED AT DEPARTURE: 06/15/21 15:44 Discharge Physician: Manjula Addison Medical Decision Making 1015 -- 61-year-old female who is unvaccinated for Covid with a history of anxiety, CHF, COPD, multiple sclerosis, migraines and obstructive sleep apnea on 2 L nasal cannula at night presents for productive cough, shortness of breath, with requirement of nasal cannula oxygen during the day for the past several days. Vitals within normal limits. Patient coughing frequently throughout exam. Yellow sputum noted. Her oxygen saturation was 80s on room air increased to mid to high 90s on 2 L nasal cannula here. She has diminished breath sounds throughout. Differential diagnosis includes acute COPD exacerbation, pneumonia, Covid, bronchitis. Will place an IV, bolus IV fluids, screening labs, CT chest, DuoNeb, Solu-Medrol and Ativan and reassess. 1240 --patient reassessed and she states she feels better. Oxygen saturation 95% on 2 L. Improved breath sounds throughout now with wheezing. Will order another albuterol neb. To go to scan shortly. Labs reviewed. Normal white blood cell count. Chronic elevation of transaminases. Troponin negative. CT chest negative for pneumonia or PE. 1500 -- Patient reassessed and she feels better. Oxygen saturation 96% on 2 L nasal cannula. Patient is requesting to go home. Patient was offered admission for observation and neb treatments and she declined stating she feels like she would like to trial treatment at home. Disposition decision made weighing the risks and benefits of hospitalization versus outpatient treatment, the risk for further decompensation, and the patient's wishes. Prescriptions for steroids, cough medication and antibiotics sent electronically to her pharmacy. She was advised to hold off on the antibiotics unless her symptoms not improve or worsen. Advised to follow up with the primary care doctor for re-evaluation. Usual and customary return precautions given prior to discharge. Medical Records Medical records reviewed: Yes I reviewed the patient's medical records. Imaging Data Radiologic Study: Radiologist's impression: CT CHEST PE CTA CLINICAL HISTORY: cough, shortness of breath, r/o PE, pneumonia. TECHNIQUE: Imaging Protocol: Axial CT angiography was performed with multi- slice acquisition and multi-planar and/or 3D reconstructions. CONTRAST MATERIAL: Intravenous: Omnipaque 350 Contrast volume:100 ml COMPARISON: CR XR CHEST 2V PA LATERAL from 07/17/2018 CR XR CHEST 2V PA LATERAL from 07/17/[address] RENAL COLIC WO from 03/11/2021 FINDINGS: Pulmonary Arteries: No evidence of filling defect to suggest pulmonary emboli. Tracheobronchial tree: Patent where visualized. Mediastinum and Carly: No dominant adenopathy or fluid collection. Pulmonary parenchyma: No consolidation or dominant measurable mass. No architectural distortion. Pleura: No effusion or pneumothorax. Heart: The heart is not dilated. No coronary artery calcifications are seen. Aorta: Thoracic aorta non-dilated. No dissection Upper abdomen: Status post cholecystectomy. Enlarged fatty liver. Bones: Degenerative disc changes in the thoracic spine. IMPRESSION: No evidence of pulmonary embolism. No evidence of pneumonia. Results were called to the ER after completion of the exam.,. Lab Data Lab results reviewed: Yes I reviewed the patient's lab results. Labs: Laboratory Tests Range/Units 06/15/21 06/15/21 06/15/21 11:00 11:07 11:07 WBC (4.4-10.8) 10^3/uL 9.86 RBC (3.93-5.22) 10^6/uL 4.41 Hgb (11.2-15.7) g/dL 14.3 Hct (36.0-46.0) % 43.9 MCV (80-95) fL 99.5 H MCH (27.0-33.0) pg 32.4 MCHC (32.0-36.0) % 32.6 RDW (11.7-14.6) % 13.2 Plt Count (130-400) 10^3/uL 242 MPV (8.0-11.0) fL 9.6 Immature Gran % 0.4 Neutrophils % 66.8 Lymphocytes % 17.1 Monocytes % 5.9 Eosinophils % 9.3 Basophils % 0.5 Nucleated RBC % % 0 Absolute Neutrophils (1.2-6.7) 10^3/uL 6.58 Absolute Lymphocytes (1.2-3.4) 10^3/uL 1.69 Absolute Monocytes (0.1-0.8) 10^3/uL 0.58 Absolute Eosinophils (0.0-0.7) 10^3/uL 0.92 H Absolute Basophils (0.0-0.2) 10^3/uL 0.05 Sodium (136-145) mmol/L 143 Potassium (3.5-5.1) mmol/L 4.7 Chloride (98-107) mmol/L 102 Carbon Dioxide (21.0-32.0) mmol/L 35.5 H Anion Gap (3-11) mmol/L 5.5 BUN (7-18) mg/dL 8 Creatinine (0.55-1.02) mg/dL 0.4 L Estimated GFR/1.73 m2 (mL/min/1.73m2) >= 60.00 Glucose (74-106) mg/dL 97 Calcium (8.5-10.1) mg/dL 8.5 Magnesium (1.8-2.4) mg/dL 2.0 Total Bilirubin (0.2-1.0) mg/dL 0.5 AST (15-37) U/L 71 H ALT (14-59) U/L 92 H Alkaline Phosphatase (46-116) U/L 82 Troponin I (<0.06) ng/mL < 0.05 Total Protein (6.4-8.2) g/dL 6.9 Albumin (3.4-5.0) g/dL 3.4 COVID-19 Source Nasal/Nares SARS-CoV-2 (PCR) (Negative) Negative HPI General Mode of arrival: ambulatory . Date/Time Provider Initiated Documentation: 06/15/21 09:59 . Limitations to Documentation: no limitations . Information obtained by: patient . HPI Narrative: Patient is a 61-year-old female with a history of CHF, COPD, multiple sclerosis, obstructive sleep apnea on 2 L of nasal cannula at night as needed presents for cough, shortness of breath, headache that occurs with coughing for the past several days. She traveled recently to [place]. She states she has been using her oxygen throughout the day due to her shortness of breath. She states she has been taking [id number] cough and cold medication including Mucinex. Patient states she is not vaccinated for Covid just because . She denies any known exposure to Covid. She states she has had a T-max of 99. She also admits to diarrhea and loss of sense of smell. She denies abdominal pain, vomiting. Re lated Data Home Medications Medication Instructions Recorded Confirmed albuterol sulfate [Ventolin HFA] 2 puff INHALATION QID PRN 08/03/15 06/15/21 clotrimazole 1 applic TOPICAL BID 08/03/15 06/15/21 dimenhydrinate [Dramamine] 50 mg PO Q6H PRN 08/03/15 06/15/21 omeprazole magnesium [Prilosec OTC] 20 mg PO PRN PRN 08/03/15 06/15/21 polyethylene glycol 3350 1 tbs PO DAILY 08/03/15 06/15/21 triamcinolone acetonide 1 applic TOPICAL BID 08/03/15 06/15/21 albuterol sulfate 2.5 mg INHALATION Q4H PRN PRN #30 08/06/15 06/15/21 ml dextromethorphan-guaifenesin 10 ml PO Q4H PRN PRN #1 btl 08/06/15 06/15/21 hydromorphone [Dilaudid] 2 mg PO QID PRN PRN #20 tablet 08/06/15 06/15/21 benzonatate 100 mg PO Q8H PRN 04/06/17 06/15/21 fluticasone propionate [Flonase 1 spray IN DIRECTED 04/06/17 06/15/21 Allergy Relief] montelukast [Singulair] 10 mg PO DAILY 04/06/17 06/15/21 pramipexole [Mirapex] 0.25 mg PO DAILY 04/06/17 06/15/21 nitroglycerin [Nitrostat] 0.4 mg SUBLINGUAL Q5 MIN PRN X3 04/08/17 06/15/21 PRN #50 tab.subl hydrocodone-homatropine 5 ml PO Q6H PRN PRN #40 ml 08/26/17 06/15/21 cyclobenzaprine 10 mg PO TID PRN #10 tab 03/11/21 06/15/21 Emgality Pen 120 mg SUBCUT Q30D 06/15/21 06/15/21 Oxygen 2l/Min 2 06/15/21 Trelegy Ellipta 1 inh INHALATION DAILY 06/15/21 06/15/21 acidophilus-pectin, citrus 1 tab PO DAILY 06/15/21 06/15/21 aspirin 81 mg PO DAILY 06/15/21 06/15/21 atorvastatin 20 mg PO DAILY 06/15/21 06/15/21 betamethasone dipropionate 1 applic TOPICAL DAILY PRN 06/15/21 06/15/21 codeine-guaifenesin [Guaifenesin 5 ml PO Q6H PRN #120 ml 06/15/21 AC] docusate sodium [DOK] 100 mg PO BID PRN PRN 06/15/21 06/15/21 doxycycline hyclate 100 mg PO BID 7 Days #14 tab 06/15/21 duloxetine 30 mg PO DAILY 06/15/21 06/15/21 gabapentin 600 mg PO TID 06/15/21 06/15/21 hydroxyzine HCl 25 mg PO TID PRN PRN 06/15/21 06/15/21 lactulose 15 ml PO .2-3 TIMES DAILY 06/15/21 06/15/21 lidocaine [Lidoderm] 1 patch TOPICAL DAILY 06/15/21 06/15/21 loratadine 10 mg PO DAILY 06/15/21 06/15/21 oxycodone 5 mg PO BID 06/15/21 06/15/21 pramipexole 0.5 mg PO HS 06/15/21 06/15/21 prednisone See Rx Instructions .ROUTE 06/15/21 .COMPLEX #18 tab sennosides [Senna Laxative] 8.6 mg PO HS 06/15/21 06/15/21 spironolactone 25 mg PO DAILY 06/15/21 06/15/21 vitamin B complex [Vitamins B 1 tab PO HS 06/15/21 06/15/21 Complex] zolpidem 5 mg PO HS PRN PRN 06/15/21 06/15/21 Previous Rx's Medication Instructions Recorded albuterol sulfate 2.5 mg INHALATION Q4H PRN PRN #30 08/06/15 ml dextromethorphan-guaifenesin 10 ml PO Q4H PRN PRN #1 btl 08/06/15 hydromorphone [Dilaudid] 2 mg PO QID PRN PRN #20 tablet 08/06/15 nitroglycerin [Nitrostat] 0.4 mg SUBLINGUAL Q5 MIN PRN X3 04/08/17 PRN #50 tab.subl hydrocodone-homatropine 5 ml PO Q6H PRN PRN #40 ml 08/26/17 cyclobenzaprine 10 mg PO TID PRN #10 tab 03/11/21 codeine-guaifenesin [Guaifenesin 5 ml PO Q6H PRN #120 ml 06/15/21 AC] doxycycline hyclate 100 mg PO BID 7 Days #14 tab 06/15/21 prednisone See Rx Instructions .ROUTE 06/15/21 .COMPLEX #18 tab Allergies Allergy/AdvReac Type Severity Reaction Status Date / Time hydrocodone [From Vicodin] AdvReac Mild Unverified 06/15/21 10:17 acetaminophen AdvReac Has liver Unverified 06/15/21 10:38 disease-does not use codeine [Codeine] AdvReac VOMITING Unverified 06/15/21 10:17 ibuprofen AdvReac Has liver Unverified 06/15/21 10:38 disease does not use oxycodone HCl [From Percocet] AdvReac VOMITING Unverified 06/15/21 10:17 General SHRUTHI: 3 Review of Systems All systems reviewed & are unremarkable except as noted in HPI and below Constitutional Constitutional: Reports as per HPI, Denies chills and Denies fever(s) Eyes Eyes: Denies blurry vision ENT Ears, Nose, Mouth, and Throat: Denies dizziness, Denies sore throat and Denies throat swelling Cardiovascular Cardiovascular: Denies chest pain and Reports dyspnea Respiratory Respiratory: Reports cough and Reports dyspnea Gastrointestinal Gastrointestinal: Denies abdominal pain, Denies diarrhea and Denies vomiting Genitourinary Genitourinary: Denies hematuria and Denies dysuria Musculoskeletal Musculoskeletal: Denies back pain and Denies numbness Integumentary/Breasts Skin/Breast: Denies lesions and Denies rash Neurologic Neurologic: Denies dizziness, Denies localized weakness and Denies numbness Allergic/Immunologic Allergic/Immunologic: Denies throat swelling PFSH Medical History (Updated 06/15/21 @ 15:23 by Manjula Addison DO) Anxiety CHF (congestive heart failure) COPD (chronic obstructive pulmonary disease) Kidney stones Migraine Multiple sclerosis Obstructive sleep apnea Surgical History (Updated 06/15/21 @ 11:02 by Manjula Addison DO) H/O section History of hysterectomy History of knee surgery Hx of cholecystectomy S/P colectomy Social History Smoking/Tobacco Use Status: Former Tobacco Use Smoking risk assessment performed?: Yes Alcohol Intake: never Drug use: Never Substance use type: does not use Do you feel safe at home: Yes Do you feel safe in your relationship?: Yes Exam Const General: cooperative, healthy appearing and no acute distress HENMT Head: normal to inspection Face and sinus: normal facial exam Eyes General: appearance normal, both eyes and all related structures EOM: EOM intact bilaterally Neck Neck: normal visual inspection and No submandibular swelling Lymphatic: no lymphadenopathy noted Chest Chest: normal inspection of the chest and no tenderness Resp Effort & Inspection: normal respiratory effort and able to speak in complete sentences Auscultation: diminished lung sounds bilaterally throughout Cardio Rate: regular rate Rhythm: regular rhythm GI Inspection: normal to inspection Palpation: soft, not firm, not rigid and nontender Auscultation: normal bowel sounds Skin General skin exam: no rashes or lesions noted Neuro General: patient alert, patient awake and patient oriented x3 Cognition: normal cognition Speech: speech normal Motor: muscle tone normal throughout Sensory Exam: no sensory deficits noted Extrem General: normal to inspection, full ROM, capillary refill normal, no calf tenderness bilaterally and no edema Psych Appearance: grossly normal Mental Status: mental status grossly normal Speech and Movement: speech and movement normal Affect: normal affect
[2021-06-15 11:11] LABS: Abs Immature Grans 0.04 10^3/uL (0.0-0.06); Absolute Basophil Count 0.05 10^3/uL (0.0-0.2); Absolute Eosinophil Count 0.92 10^3/uL (0.0-0.7); Absolute Lymphocyte Count 1.69 10^3/uL (1.2-3.4); Absolute Monocyte Count 0.58 10^3/uL (0.1-0.8); Absolute Neutrophil Count 6.58 10^3/uL (1.2-6.7); Basophils % 0.5; Eosinophils % 9.3; HCT 43.9 % (36.0-46.0); HGB 14.3 g/dL (11.2-15.7); Immature Grans % 0.4; Lymphocytes % 17.1; MCH 32.4 pg (27.0-33.0); MCHC 32.6 % (32.0-36.0); MCV 99.5 fL (80-95); MPV 9.6 fL (8.0-11.0); Monocytes % 5.9; Neutrophils % 66.8; Nucleated RBC 0 %; Platelet Count 242 10^3/uL (130-400); RBC 4.41 10^6/uL (3.93-5.22); RDW 13.2 % (11.7-14.6); RDW-SD 48.9 fL; WBC 9.86 10^3/uL (4.4-10.8)
[2021-06-15] MEDS: LORazepam 2 MG/ML VIAL 0.5 MG IVP (11:13)
[2021-06-15] MEDS: Albuterol/Ipratropium 3 ML UPD VIAL UPD (11:13)
[2021-06-15] MEDS: Normal Saline 500 ML IV (11:13)
[2021-06-15] MEDS: methylPREDNISolone SUCC 125 MG VIAL IVP (11:14)
[2021-06-15 11:24] LABS: Source Nasal/Nares
[2021-06-15 11:35] LABS: ALT 92 U/L (14-59); AST 71 U/L (15-37); Albumin 3.4 g/dL (3.4-5.0); Alkaline Phosphatase 82 U/L (46-116); Anion Gap 5.5 mmol/L (3-11); BUN 8 mg/dL (7-18); Bilirubin, Total 0.5 mg/dL (0.2-1.0); CO2 35.5 mmol/L (21.0-32.0); CREATININE 0.4 mg/dL (0.55-1.02); Calcium 8.5 mg/dL (8.5-10.1); Chloride 102 mmol/L (98-107); Glucose 97 mg/dL (74-106); Potassium 4.7 mmol/L (3.5-5.1); Sodium 143 mmol/L (136-145); Total Protein 6.9 g/dL (6.4-8.2)
[2021-06-15 11:36] LABS: Troponin I < 0.05 ng/mL (<0.06)
[2021-06-15 12:49] LABS: COVID-19 PCR Negative (Negative)
--- NOTE | 2021-06-15 13:20 | DI.CT_ITS ---
Exam(s) CT CHEST PE CTA EXAM: CT CHEST PE CTA CLINICAL HISTORY: cough, shortness of breath, r/o PE, pneumonia. TECHNIQUE: Imaging Protocol: Axial CT angiography was performed with multi-slice acquisition and mu lti-planar and/or 3D reconstructions. CONTRAST MATERIAL: Intravenous: Omnipaque 350 Contrast volume:100 ml COMPARISON: CR XR CHEST 2V PA LATERAL from 07/17/2018 CR XR CHEST 2V PA LATERAL from 07/17/[address] RENAL COLIC WO from 03/11/2021 FINDINGS: Pulmonary Arteries: No evidence of filling defect to suggest pulmonary emboli. Tracheobronchial tree: Patent where visualized. Mediastinum and Carly: No dominant adenopathy or fluid collection. Pulmonary parenchyma: No consolidation or dominant measurable mass. No architectural distortion. Pleura: No effusion or pneumothorax. Heart: The heart is not dilated. No coronary artery calcifications are seen. Aorta: Thoracic aorta non-dilated. No dissection Upper abdomen: Status post cholecystectomy. Enlarged fatty liver. Bones: Degenerative disc changes in the thoracic spine. IMPRESSION: No evidence of pulmonary embolism. No evidence of pneumonia. Results were called to the ER after completion of the exam.,. RADIATION DOSE DELIVERED: 748.17mGy.cm Total DLP DATA REPOSITORY: All CT scans at this facility are submitted to the National Radiology Data Registry (NRDR) Dose Index Registry (DIR) with the [employer] ([employer]). RADIATION OPTIMIZATION: All CT scans at this facility use at least one of these dose optimization te chniques: automated exposure control; mA and/or kV adjustment per patient size (includes targeted exa ms where dose is matched to clinical indication); or iterative reconstruction.
[2021-06-15] MEDS: Normal Saline - Diluent 50 ML VIAL IV (13:21)
[2021-06-15] MEDS: Omnipaque 350 MG/ML 100 ML BTL IJ (13:21)
[2021-06-15] MEDS: Albuterol 2.5 MG/3 ML INH SOLN VIAL 5 MG UPD (13:31)
[2021-06-15] MEDS: guaiFENesin/CODEINE PHOSPHATE 10 ML CUP 20 ML PO (15:37)
== END 2021-06-15 15:44 | disposition home or self-care (01) ==
PROVIDERS: Emergency Provider Physician Assistant; PCP Nurse Practitioner Family
DX: J44.1 Chronic obstructive pulmonary disease with (acute) exacerbation (principal); R06.02 Shortness of breath; R05.1 Acute cough; R09.02 Hypoxemia; Z99.81 Dependence on supplemental oxygen; Z20.822 Contact with and (suspected) exposure to COVID-19; Z03.818 Encounter for observation for suspected exposure to other biological agents ruled out
CPT/HCPCS: 36415; 71275; 80053; 87635; 94640; 96361; 96374; 96375; 99285; 83735; 84484; 85025; J2060; J2930; J3490; J7613; J7620

== ENCOUNTER 2021-08-09 18:12 | Inpatient (IN) | payer MEDICAID, SELFPAY ==
[2021-08-09] VITALS (26 sets, daily range): BP systolic 133–161; BP diastolic 66–99; PULSE 88–108; RESP 12–39; TEMP 37.7; O2SAT 89–100
--- NOTE | 2021-08-09 18:30 | RT.EKG_ITS ---
APPROVED REPORT Exam: Resting ECG Reason for Exam: sob Patient Location: E HR:88 bpm ECG Measurements Heart Rate 88 AXIS OK 177 P 35 QRSd 97 QRS 59 QT 348 T 70 QTc 423 Conclusion Sinus rhythm...normal P axis, V-rate 60- 99 Ventricular premature complex...V complex w/ short R-R interval Low voltage, precordial leads...precordial leads <1.0mV
--- NOTE | 2021-08-09 18:30 | DI.RAD_ITS ---
Exam(s) XR PORTABLE CHEST AP EXAM: XR PORTABLE CHEST AP CLINICAL HISTORY: Shortness of Breath TECHNIQUE: 2D digital imaging was performed of the chest. One image was obtained. An AP view was ob tained. COMPARISON: CR CHEST 2 VIEWS PA,LAT from 08/26/2017 CR CHEST 2 VIEWS PA,LAT from 08/26/2017 CR XR CHEST 2V PA LATERAL from 07/17/2018 CR XR CHEST 2V PA LATERAL from 07/17/2018 FINDINGS: MEDIASTINUM: Normal. HEART: Heart appears within normal limits given the AP projection. PULMONARY VASCULATURE: Normal. LUNGS: No focal consolidating infiltrates are seen. PLEURAL SPACE: No pleural effusion or pneumothorax. BONE:Within normal limits for the patient's age. OTHER FINDINGS:Normal. IMPRESSION: No definite acute pulmonary process. Follow-up as clinically appropriate. DATA REPOSITORY: RADIATION DOSE DELIVERED:
[2021-08-09 18:53] LABS: Source Nasal/Nares
[2021-08-09] MEDS: methylPREDNISolone SUCC 125 MG VIAL IVP (19:05)
[2021-08-09] MEDS: Albuterol/Ipratropium 3 ML UPD VIAL UPD (19:09)
[2021-08-09] MEDS: Normal Saline Flush 10 ML SYR IVP ×2 (19:09→21:22)
[2021-08-09 19:24] LABS: BE (Venous) 7 mmol/L (-2-3); HCO3 (Venous) 31 mmol/L (23-28); O2 Sat (Venous) 94 %; TCO2 (Venous) 27 mmol/L (24-29); pCO2 (Venous) 48 mmHg (41-51); pH (Venous) 7.42 (7.31-7.41); pO2 (Venous) 67 mmHg
[2021-08-09 19:26] LABS: Abs Immature Grans 0.03 10^3/uL (0.0-0.06); Absolute Basophil Count 0.03 10^3/uL (0.0-0.2); Absolute Eosinophil Count 0.41 10^3/uL (0.0-0.7); Absolute Lymphocyte Count 0.81 10^3/uL (1.2-3.4); Absolute Monocyte Count 0.58 10^3/uL (0.1-0.8); Basophils % 0.5; Eosinophils % 6.3; HGB 14.1 g/dL (11.2-15.7); Immature Grans % 0.5; Lymphocytes % 12.3; MCH 31.9 pg (27.0-33.0); MCHC 32.8 % (32.0-36.0); MCV 97.3 fL (80-95); MPV 9.9 fL (8.0-11.0); Monocytes % 8.8; Neutrophils % 71.6; Nucleated RBC 0 %; Platelet Count 193 10^3/uL (130-400); RBC 4.42 10^6/uL (3.93-5.22); RDW 12.1 % (11.7-14.6); RDW-SD 43.9 fL; WBC 6.56 10^3/uL (4.4-10.8)
[2021-08-09 19:39] LABS: COVID-19 PCR POSITIVE (Negative)
[2021-08-09 19:46] LABS: ALT 160 U/L (14-59); AST 128 U/L (15-37); Albumin 3.6 g/dL (3.4-5.0); Alkaline Phosphatase 86 U/L (46-116); Anion Gap 5.7 mmol/L (3-11); BUN 9 mg/dL (7-18); Bilirubin, Total 0.3 mg/dL (0.2-1.0); CO2 30.3 mmol/L (21.0-32.0); CREATININE 0.7 mg/dL (0.55-1.02); Calcium 8.9 mg/dL (8.5-10.1); Chloride 103 mmol/L (98-107); Glucose 112 mg/dL (74-106); Magnesium 2.2 mg/dL (1.8-2.4); NT-proBNP 46 pg/mL (<300); Potassium 3.6 mmol/L (3.5-5.1); Sodium 139 mmol/L (136-145); Total Protein 7.4 g/dL (6.4-8.2); Troponin I < 50 ng/L (<or=60)
--- NOTE | 2021-08-09 19:51 | ED.GENADUL_ITS ---
Discharge Plan Disposition Patient Disposition: [facility] INPATIENT Condition: Poor Discharge Details Clinical Impression: COVID-19, Acute exacerbation of chronic obstructive pulmonary disease Admit Date/Time: 08/09/21 22:43 Admit Provider: Gage George Attending Provider: Gage George Primary Care Provider: Paulina Alston ED Provider: Supa Cantu Discharge Data Discharge Date/Time-TO BE ENTERED AT DEPARTURE: 08/10/21 00:20 Medical Decision Making Patient presenting to the emergency department for chief complaint of shortness of breath. Patient reports that yesterday she started having significant amount of cold symptoms and states her worst cold she has ever had. Reports that this is not similar to previous COPD exacerbations. Does state fever chills cough and abdominal and chest pain secondary to coughing. Patient is unvaccinated for Covid but has received flu vaccination. Physical exam shows moderate increased work of breathing with initial presentation showing hypoxia. Patient is not a well-appearing individual and has significant medical comorbidities. Concern for COPD exacerbation versus acute Covid illness versus other cardiopulmonary pathology. Plan to do a full work-up. Pending results patient given oxygen, Solu-Medrol, and DuoNeb. Patient is tachycardic with low and so plan to perform D-dimer. Review of labs show a very mild respiratory acidosis, positive Covid, mild elevation of LFTs otherwise unremarkable laboratory findings. Noted elevation of D-dimer so plan to do CT imaging chest. Review of CT imaging and [facility] radiologist interpretation shows no acute findings and is negative for pulmonary embolism. Given that patient has significant medical comorbidities, hypoxic upon arrival, and is Covid positive I do feel that patient would benefit from admission and further monitoring. Patient was agreeable to this plan of care and hospitalist was consulted for admission. HPI General Mode of arrival: ambulatory . Date/Time Provider Initiated Documentation: 08/09/21 18:13 . Limitations to Documentation: no limitations . Information obtained by: patient . History of Present Illness 61 year old F presents to the emergency department with the chief complaint of Shortness of breath with respiratory tract infectious symptoms , described as severe, with intensity rated at 6. Quality is described as other (tightness), and is localized to the chest. Patient reports no radiation. Patient started experiencing this day(s) (08/08/21) and it has been constant. No relieving factors improve symptom(s), Patient notes chest pain, cough, fever/chills, malaise and shortness of breath. Patient did receive the following treatments prior to arrival, other (Albuterol treatment 1 hour prior to arrival) Related Data Home Medications Medication Instructions Recorded Confirmed albuterol sulfate [Ventolin HFA] 2 puff INHALATION QID PRN 08/03/15 08/09/21 omeprazole magnesium [Prilosec OTC] 20 mg PO PRN PRN 08/03/15 08/09/21 albuterol sulfate 2.5 mg INHALATION Q4H PRN PRN #30 08/06/15 08/09/21 ml dextromethorphan-guaifenesin 10 ml PO Q4H PRN PRN #1 btl 08/06/15 08/09/21 benzonatate 100 mg PO Q8H PRN 04/06/17 08/09/21 fluticasone propionate [Flonase 1 spray IN DIRECTED 04/06/17 08/09/21 Allergy Relief] montelukast [Singulair] 10 mg PO DAILY 04/06/17 08/09/21 Emgality Pen 120 mg SUBCUT Q30D 06/15/21 06/15/21 Oxygen 2l/Min 2 06/15/21 Trelegy Ellipta 1 inh INHALATION DAILY 06/15/21 08/09/21 acidophilus-pectin, citrus 1 tab PO DAILY 06/15/21 08/09/21 aspirin 81 mg PO DAILY 06/15/21 08/09/21 atorvastatin 20 mg PO DAILY 06/15/21 08/09/21 codeine-guaifenesin [Guaifenesin 5 ml PO Q6H PRN #120 ml 06/15/21 08/09/21 AC] duloxetine 60 mg PO DAILY 06/15/21 08/09/21 gabapentin 600 mg PO TID 06/15/21 08/09/21 lactulose 15 ml PO .2-3 TIMES DAILY 06/15/21 08/09/21 loratadine 10 mg PO DAILY 06/15/21 08/09/21 pramipexole 0.5 mg PO HS 06/15/21 08/09/21 spironolactone 25 mg PO DAILY 06/15/21 08/09/21 vitamin B complex [Vitamins B 1 tab PO HS 06/15/21 08/09/21 Complex] zolpidem 5 mg PO HS PRN PRN 06/15/21 08/09/21 acetylcysteine 600 mg PO QID 08/09/21 08/09/21 Previous Rx's Medication Instructions Recorded albuterol sulfate 2.5 mg INHALATION Q4H PRN PRN #30 08/06/15 ml dextromethorphan-guaifenesin 10 ml PO Q4H PRN PRN #1 btl 08/06/15 codeine-guaifenesin [Guaifenesin 5 ml PO Q6H PRN #120 ml 06/15/21 AC] Allergies Allergy/AdvReac Type Severity Reaction Status Date / Time hydrocodone [From Vicodin] AdvReac Mild Unverified 08/09/21 18:34 acetaminophen AdvReac Has liver Unverified 08/09/21 18:34 disease-does not use codeine [Codeine] AdvReac VOMITING Unverified 08/09/21 18:34 ibuprofen AdvReac Has liver Unverified 08/09/21 18:34 disease does not use oxycodone HCl [From Percocet] AdvReac VOMITING Unverified 08/09/21 18:34 General Stated Complaint: SOB SHRUTHI: 2 Review of Systems Constitutional Constitutional: Reports chills, Reports fever(s), Reports lethargy and Reports malaise ENT Ears, Nose, Mouth, and Throat: Reports nasal congestion Cardiovascular Cardiovascular: Reports chest pain, Denies syncope, Reports dyspnea and Reports dyspnea on exertion Respiratory Respiratory: Reports chest congestion, Reports cough, Reports dyspnea and Reports dyspnea on exertion Gastrointestinal Gastrointestinal: Reports abdominal pain and Denies diarrhea Musculoskeletal Musculoskeletal: Reports myalgias Integumentary/Breasts Skin/Breast: Denies rash Neurologic Neurologic: Denies syncope PFSH All Active Problems (Updated 08/11/21 @ 19:29 by Supa Cantu NP) COVID-19 (Acute) Restless leg syndrome (Acute) Acute exacerbation of chronic obstructive pulmonary disease (Acute) Lumbago with sciatica, right side (Acute) Medical History Anxiety CHF (congestive heart failure) COPD (chronic obstructive pulmonary disease) Kidney stones Migraine Multiple sclerosis Obstructive sleep apnea Surgical History H/O section History of hysterectomy History of knee surgery Hx of cholecystectomy S/P colectomy Social History Smoking/Tobacco Use Status: Former Tobacco Use Smoking risk assessment performed?: Yes Alcohol Intake: never Drug use: Never Substance use type: does not use Do you feel safe at home: Yes Do you feel safe in your relationship?: Yes Exam Const General: cooperative, not diaphoretic and ill appearing Nutritional Appearance: obese Orientation: alert, awake and oriented x3 Limitations: mental status not altered Neck Neck: normal visual inspection, full ROM, trachea midline, supple and no anterior neck swelling Resp Effort & Inspection: able to speak in complete sentences, cough Quality of cough: dry and prolonged expiratory phase Auscultation: diminished lung sounds bilaterally throughout and wheezes expiratory wheezes and scattered wheezes Cardio Rate: regular rate Rhythm: regular rhythm Heart Sounds: S1 normal, S2 normal, no click, no gallops, no murmurs and no rubs Bruits: no abdominal aortic bruits and no carotid bruits Pulses: radial pulses present bilaterally 2+ GI Inspection: obesity Palpation: soft, no pulsatile masses and tender other (generalized non focal) Skin General skin exam: no rashes or lesions noted Neuro General: patient alert, patient awake, patient oriented x3, tone normal and moves all extremities Course Vital Signs Vital signs: Vital Signs Temperature 37.7 C H 08/09/21 18:28 Pulse 91 H 08/09/21 18:28 Respiratory Rate 31 H 08/09/21 18:28 Blood Pressure 157/99 H 08/09/21 18:28 Pulse Oximetry 89 L 08/09/21 18:28 Temperature 37.7 C H 08/09/21 18:28 Temperature Source Temporal Artery Scan 08/09/21 18:28 Pulse 90 08/09/21 19:31 Pulse 95 H 08/09/21 19:40 Respiratory Rate 27 H 08/09/21 19:40 Respiratory Effort Incrsd Work of Breathing 08/09/21 19:13 Respiratory Pattern Irregular 08/09/21 19:13 Blood Pressure 133/68 08/09/21 19:31 Blood Pressure Mean 83 08/09/21 19:31 Blood Pressure Position Sitting 08/09/21 18:28 Pulse Oximetry 94 08/09/21 19:40 Oxygen Delivery Method Room Air 08/09/21 18:28 Oxygen Flow Rate 0 08/09/21 18:28 Pain Level 9 08/09/21 18:28 Lab/Test Results Lab/Test Results: 08/09/21 18:45 Nasopharynx Influenza Types A,B Antigen - Pending 08/09/21 19:10 Blood Blood Culture - Pending 08/09/21 18:50 Blood Blood Culture - Pending Laboratory Tests Range/Units 08/09/21 08/09/21 08/09/21 18:45 19:10 19:10 WBC (4.4-10.8) 10^3/uL 6.56 RBC (3.93-5.22) 10^6/uL 4.42 Hgb (11.2-15.7) g/dL 14.1 Hct (36.0-46.0) % 43.0 MCV (80-95) fL 97.3 H MCH (27.0-33.0) pg 31.9 MCHC (32.0-36.0) % 32.8 RDW (11.7-14.6) % 12.1 Plt Count (130-400) 10^3/uL 193 MPV (8.0-11.0) fL 9.9 Immature Gran % 0.5 Neutrophils % 71.6 Lymphocytes % 12.3 Monocytes % 8.8 Eosinophils % 6.3 Basophils % 0.5 Nucleated RBC % % 0 Absolute Neutrophils (1.2-6.7) 10^3/uL 4.70 Absolute Lymphocytes (1.2-3.4) 10^3/uL 0.81 L Absolute Monocytes (0.1-0.8) 10^3/uL 0.58 Absolute Eosinophils (0.0-0.7) 10^3/uL 0.41 Absolute Basophils (0.0-0.2) 10^3/uL 0.03 VBG pH (7.31-7.41) VBG pCO2 (41-51) mmHg VBG pO2 mmHg VBG HCO3 (23-28) mmol/L VBG Total CO2 (24-29) mmol/L VBG O2 Saturation % VBG Base Excess (-2-3) mmol/L Sodium (136-145) mmol/L 139 Potassium (3.5-5.1) mmol/L 3.6 Chloride (98-107) mmol/L 103 Carbon Dioxide (21.0-32.0) mmol/L 30.3 Anion Gap (3-11) mmol/L 5.7 BUN (7-18) mg/dL 9 Creatinine (0.55-1.02) mg/dL 0.7 Estimated GFR/1.73 m2 (mL/min/1.73m2) >= 60.00 Glucose (74-106) mg/dL 112 H Calcium (8.5-10.1) mg/dL 8.9 Magnesium (1.8-2.4) mg/dL 2.2 Total Bilirubin (0.2-1.0) mg/dL 0.3 AST (15-37) U/L 128 H ALT (14-59) U/L 160 H Alkaline Phosphatase (46-116) U/L 86 Troponin I (<or=60) ng/L < 50 NT-Pro-B Natriuret Pep (<300) pg/mL 46 Total Protein (6.4-8.2) g/dL 7.4 Albumin (3.4-5.0) g/dL 3.6 COVID-19 Source Nasal/Nares SARS-CoV-2 (PCR) (Negative) POSITIVE A* Range/Units 08/09/21 19:10 WBC (4.4-10.8) 10^3/uL RBC (3.93-5.22) 10^6/uL Hgb (11.2-15.7) g/dL Hct (36.0-46.0) % MCV (80-95) fL MCH (27.0-33.0) pg MCHC (32.0-36.0) % RDW (11.7-14.6) % Plt Count (130-400) 10^3/uL MPV (8.0-11.0) fL Immature Gran % Neutrophils % Lymphocytes % Monocytes % Eosinophils % Basophils % Nucleated RBC % % Absolute Neutrophils (1.2-6.7) 10^3/uL Absolute Lymphocytes (1.2-3.4) 10^3/uL Absolute Monocytes (0.1-0.8) 10^3/uL Absolute Eosinophils (0.0-0.7) 10^3/uL Absolute Basophils (0.0-0.2) 10^3/uL VBG pH (7.31-7.41) 7.42 H VBG pCO2 (41-51) mmHg 48 VBG pO2 mmHg 67 VBG HCO3 (23-28) mmol/L 31 H VBG Total CO2 (24-29) mmol/L 27 VBG O2 Saturation % 94 VBG Base Excess (-2-3) mmol/L 7 H Sodium (136-145) mmol/L Potassium (3.5-5.1) mmol/L Chloride (98-107) mmol/L Carbon Dioxide (21.0-32.0) mmol/L Anion Gap (3-11) mmol/L BUN (7-18) mg/dL Creatinine (0.55-1.02) mg/dL Estimated GFR/1.73 m2 (mL/min/1.73m2) Glucose (74-106) mg/dL Calcium (8.5-10.1) mg/dL Magnesium (1.8-2.4) mg/dL Total Bilirubin (0.2-1.0) mg/dL AST (15-37) U/L ALT (14-59) U/L Alkaline Phosphatase (46-116) U/L Troponin I (<or=60) ng/L NT-Pro-B Natriuret Pep (<300) pg/mL Total Protein (6.4-8.2) g/dL Albumin (3.4-5.0) g/dL COVID-19 Source SARS-CoV-2 (PCR) (Negative)
[2021-08-09 19:55] LABS: D-Dimer 884 ng/mlFEU (<500)
--- NOTE | 2021-08-09 20:00 | DI.CT_ITS ---
Exam(s) CT CHEST PE CTA EXAM: CT CHEST PE CTA CLINICAL HISTORY: Shortness of breath. TECHNIQUE: Imaging Protocol: Axial CT angiography was performed with multi-slice acquisition and mu lti-planar and/or 3D reconstructions. CONTRAST MATERIAL: Intravenous: Omnipaque 350 Contrast volume:100 mL COMPARISON: CT CT CHEST PE CTA from 06/15/2021 FINDINGS: The examination is limited due to patient motion artifact. Tracheobronchial tree: Patent where visualized. Pulmonary parenchyma: No consolidation or dominant measurable mass. Atelectasis or scarring in the coby ng bases. Pulmonary Arteries: No evidence of filling defect to suggest pulmonary emboli. Mediastinum and Carly: No dominant adenopathy or fluid collection. The esophagus is unremarkable. Visualized thyroid gland: Unremarkable. Pleura: No effusion or pneumothorax. Heart: The heart is not dilated. Coronary artery calcifications are present. No pericardial effusion . Aorta: Thoracic aorta non-dilated. No evidence of dissection. Atherosclerosis is present. Upper abdomen: Status post cholecystectomy. Soft tissues: Unremarkable. Bones: Within normal limits for the patient's age.Stable nonunited right rib fracture. IMPRESSION: No evidence of pulmonary embolism, thoracic aortic dissection or aneurysm. RADIATION DOSE DELIVERED: 667.23mGy.cm Total DLP DATA REPOSITORY: All CT scans at this facility are submitted to the National Radiology Data Registry (NRDR) Dose Index Registry (DIR) with the [employer] (ACR). RADIATION OPTIMIZATION: All CT scans at this facility use at least one of these dose optimization te chniques: automated exposure control; mA and/or kV adjustment per patient size (includes targeted exa ms where dose is matched to clinical indication); or iterative reconstruction.
--- NOTE | 2021-08-09 20:06 | DI.VRAD_ITS ---
PROCEDURE INFORMATION: Exam: XR Chest Exam date and time: 08/09/2021 6:36 PM Age: 61 years old Clinical indication: Shortness of breath; Patient HX: SOB; Additional info: HX chf TECHNIQUE: Imaging protocol: XR of the chest. Views: 1 view. COMPARISON: CT CHEST PE CTA 06/15/2021 1:19 PM FINDINGS: Tubes, catheters and devices: Monitoring wires noted. Lungs: Mild airspace opacity noted bilaterally, greatest in the perihilar lung zones. Pulmonary vessels are indistinct. No specific collapse observed. Pleural spaces: Unremarkable. No pleural effusion. No pneumothorax. Heart/Mediastinum: Mild cardiomegaly. Bones/joints: Unremarkable. IMPRESSION: Mild vascular congestion and/or perihilar infiltrates. Dictated and Authenticated by: Lam Boyer MD. Ordering:HUGH Cowart MD
[2021-08-09] MEDS: Omnipaque 350 MG/ML 100 ML BTL IJ (21:21)
--- NOTE | 2021-08-09 22:09 | DI.VRAD_ITS ---
PROCEDURE INFORMATION: Exam: CTA Chest With Contrast Exam date and time: 08/09/2021 8:09 PM Age: 61 years old Clinical indication: Shortness of breath; Patient HX: SOB, covid + TECHNIQUE: Imaging protocol: Computed tomographic angiography of the chest with contrast. 3D rendering (Not supervised by radiologist): MIP and/or 3D reconstructed images were created by the technologist. Radiation optimization: All CT scans at this facility use at least one of these dose optimization techniques: automated exposure control; mA and/or kV adjustment per patient size (includes targeted exams where dose is matched to clinical indication); or iterative reconstruction. Contrast material: OMNIPAQUE 350; Contrast volume: 100 ml; Contrast route: INTRAVENOUS (IV); COMPARISON: CT CHEST PE CTA 06/15/2021 1:19 PM FINDINGS: Pulmonary arteries: Normal. No pulmonary emboli. Aorta: Unremarkable. No aortic aneurysm. No aortic dissection. Lungs: Unremarkable. No consolidation. No masses. Pleural spaces: Unremarkable. No pneumothorax. No pleural effusion. Heart: Unremarkable. No cardiomegaly. No pericardial effusion. Lymph nodes: Unremarkable. No enlarged lymph nodes. Bones/joints: An old fracture is noted in the lateral right 10th rib. Negative for compression fracture in the thoracic spine. Soft tissues: Unremarkable. IMPRESSION: 1. Negative for pulmonary embolism. 2. No significant pulmonary consolidation or ground-glass opacity. Dictated and Authenticated by: Lam Boyer MD. Ordering:HUGH Cowart MD
--- NOTE | 2021-08-09 22:30 | W.PM.HP.N ---
Date of service: 08/09/21 Time of Service: 22:30 Assessment and Plan Assessment and plan (1) Acute exacerbation of chronic obstructive pulmonary disease: Status: Acute Assessment and plan: COPD exacerbation in setting of COVID. I am not seeing active pneumonitis at this time, and at present patient is oxygenating satisfactorily. However she remains at high risk of progression due to underlying condition, unvaccinated status, and that we are early in the illness. Will begin treatment with Remdesivir, steroids and baricitinib along with ongoing treatment of COPD. History of Present Illness History of Present Illness Chief Complaint: cough, SOB Narrative: 61 female with COPD, unvaccinated. Here with one day of dry cough, SOB and myalgias. In ER initial O2 sat 89%. Received Duoneb and Solumedrol. W/U of note for temp 37.7; white count 6.5 with absolute lymphopenia; d-Dimer 884; CXR with question mild CHF but CTA negative PE and no consolidation or ground glass opacities. COVID is positive. I was asked to evaluate for admission. At present time she continues to endorse SOB. Denies CP, diarrhea or change in taste or smell. Review of Systems All systems reviewed & are unremarkable except as noted in HPI and below PFSH All Active Problems Acute exacerbation of chronic obstructive pulmonary disease (Acute) Lumbago with sciatica, right side (Acute) Medical History Anxiety CHF (congestive heart failure) COPD (chronic obstructive pulmonary disease) Kidney stones Migraine Multiple sclerosis Obstructive sleep apnea Surgical History H/O section History of hysterectomy History of knee surgery Hx of cholecystectomy S/P colectomy Social History Smoking/Tobacco Use Status: Former Tobacco Use Smoking risk assessment performed?: Yes Alcohol Intake: never Drug use: Never Substance use type: does not use Do you feel safe at home: Yes Do you feel safe in your relationship?: Yes Meds Allergies and Home Medications Allergies Allergy/AdvReac Type Severity Reaction Status Date / Time hydrocodone [From Vicodin] AdvReac Mild Unverified 08/09/21 18:34 acetaminophen AdvReac Has liver Unverified 08/09/21 18:34 disease-does not use codeine [Codeine] AdvReac VOMITING Unverified 08/09/21 18:34 ibuprofen AdvReac Has liver Unverified 08/09/21 18:34 disease does not use oxycodone HCl [From Percocet] AdvReac VOMITING Unverified 08/09/21 18:34 Home Medications Medication Instructions Recorded Confirmed Type albuterol sulfate [Ventolin HFA] 2 puff INHALATION QID PRN 08/03/15 08/09/21 History omeprazole magnesium [Prilosec OTC] 20 mg PO PRN PRN 08/03/15 08/09/21 History albuterol sulfate 2.5 mg INHALATION Q4H PRN PRN #30 08/06/15 08/09/21 Rx ml dextromethorphan-guaifenesin 10 ml PO Q4H PRN PRN #1 btl 08/06/15 08/09/21 Rx benzonatate 100 mg PO Q8H PRN 04/06/17 08/09/21 History fluticasone propionate [Flonase 1 spray IN DIRECTED 04/06/17 08/09/21 History Allergy Relief] montelukast [Singulair] 10 mg PO DAILY 04/06/17 08/09/21 History Emgality Pen 120 mg SUBCUT Q30D 06/15/21 06/15/21 History Oxygen 2l/Min 2 06/15/21 History Trelegy Ellipta 1 inh INHALATION DAILY 06/15/21 08/09/21 History acidophilus-pectin, citrus 1 tab PO DAILY 06/15/21 08/09/21 History aspirin 81 mg PO DAILY 06/15/21 08/09/21 History atorvastatin 20 mg PO DAILY 06/15/21 08/09/21 History codeine-guaifenesin [Guaifenesin 5 ml PO Q6H PRN #120 ml 06/15/21 08/09/21 Rx AC] duloxetine 60 mg PO DAILY 06/15/21 08/09/21 History gabapentin 600 mg PO TID 06/15/21 08/09/21 History lactulose 15 ml PO .2-3 TIMES DAILY 06/15/21 08/09/21 History loratadine 10 mg PO DAILY 06/15/21 08/09/21 History pramipexole 0.5 mg PO HS 06/15/21 08/09/21 History spironolactone 25 mg PO DAILY 06/15/21 08/09/21 History vitamin B complex [Vitamins B 1 tab PO HS 06/15/21 08/09/21 History Complex] zolpidem 5 mg PO HS PRN PRN 06/15/21 08/09/21 History acetylcysteine 600 mg PO QID 08/09/21 08/09/21 History Exam Narrative Exam Narrative: 133/68, 90, 37.7, 27, 94% RA. HEENT atraumatic; neck supple; lungs few wheezes, heart distant/RRR; abdomen soft and NT; extremities trace pedal edema; neuro Ox3, moves all 4s Results Labs Result diagrams: 08/09/21 19:10 08/09/21 19:10 Labs: Laboratory Results - last 24 hr 08/09/21 08/09/21 08/09/21 18:45 19:10 19:10 WBC 6.56 RBC 4.42 Hgb 14.1 Hct 43.0 MCV 97.3 H MCH 31.9 MCHC 32.8 RDW 12.1 Plt Count 193 MPV 9.9 Immature Gran % 0.5 Neutrophils % 71.6 Lymphocytes % 12.3 Monocytes % 8.8 Eosinophils % 6.3 Basophils % 0.5 Nucleated RBC % 0 Absolute Neutrophils 4.70 Absolute Lymphocytes 0.81 L Absolute Monocytes 0.58 Absolute Eosinophils 0.41 Absolute Basophils 0.03 D-Dimer VBG pH VBG pCO2 VBG pO2 VBG HCO3 VBG Total CO2 VBG O2 Saturation VBG Base Excess Sodium 139 Potassium 3.6 Chloride 103 Carbon Dioxide 30.3 Anion Gap 5.7 BUN 9 Creatinine 0.7 Estimated GFR/1.73 m2 >= 60.00 Glucose 112 H Calcium 8.9 Magnesium 2.2 Total Bilirubin 0.3 AST 128 H ALT 160 H Alkaline Phosphatase 86 Troponin I < 50 NT-Pro-B Natriuret Pep 46 Total Protein 7.4 Albumin 3.6 COVID-19 Source Nasal/Nares SARS-CoV-2 (PCR) POSITIVE A* 08/09/21 08/09/21 19:10 19:10 WBC RBC Hgb Hct MCV MCH MCHC RDW Plt Count MPV Immature Gran % Neutrophils % Lymphocytes % Monocytes % Eosinophils % Basophils % Nucleated RBC % Absolute Neutrophils Absolute Lymphocytes Absolute Monocytes Absolute Eosinophils Absolute Basophils D-Dimer 884 H VBG pH 7.42 H VBG pCO2 48 VBG pO2 67 VBG HCO3 31 H VBG Total CO2 27 VBG O2 Saturation 94 VBG Base Excess 7 H Sodium Potassium Chloride Carbon Dioxide Anion Gap BUN Creatinine Estimated GFR/1.73 m2 Glucose Calcium Magnesium Total Bilirubin AST ALT Alkaline Phosphatase Troponin I NT-Pro-B Natriuret Pep Total Protein Albumin COVID-19 Source SARS-CoV-2 (PCR) Last Vital Signs Temp 37.7 C H 08/09/21 18:28 Pulse 90 08/09/21 19:31 Resp 27 H 08/09/21 19:40 BP 133/68 08/09/21 19:31 Pulse Ox 94 08/09/21 19:40
[2021-08-10] VITALS (119 sets, daily range): BP systolic 114–141; BP diastolic 76–89; PULSE 84–96; RESP 5–28; TEMP 36–36.6; O2SAT 2–97
[2021-08-10] MEDS: Albuterol/Ipratropium 3 ML UPD VIAL UPD (01:50)
[2021-08-10] MEDS: Gabapentin 600 MG TAB PO ×2 (01:51→09:04)
[2021-08-10] MEDS: methylPREDNISolone SUCC 40 MG VIAL IVP ×2 (01:51→09:03)
[2021-08-10] MEDS: REMDESIVIR 200 MG in Normal Saline 250 ML 250 MG IVPB (01:52)
[2021-08-10] MEDS: HYDROmorphone 2 MG/ML VIAL IVP ×2 (01:52→10:17)
[2021-08-10] MEDS: Benzonatate 100 MG CAP PO ×2 (01:52→10:17)
[2021-08-10] MEDS: Normal Saline Flush 10 ML SYR IVP ×5 (01:53→12:01)
[2021-08-10] MEDS: Zolpidem 5 MG TAB PO ×2 (01:53→21:37)
[2021-08-10] MEDS: guaiFENesin/D-METHORPHAN HB 5 ML CUP 10 ML PO ×2 (01:53→10:16)
[2021-08-10] MEDS: Loratidine 10 MG TAB PO (08:12)
[2021-08-10] MEDS: Spironolactone 25 MG TAB PO (08:12)
[2021-08-10] MEDS: Aspirin E.C. 81 MG TABEC PO (08:13)
[2021-08-10] MEDS: DULoxetine 30 MG CAP 60 MG PO (08:13)
[2021-08-10] MEDS: Enoxaparin 40 MG/0.4 ML SYR SC (08:13)
--- NOTE | 2021-08-10 08:36 | PDOC.CMIN ---
- If Service Date Differs Date of service: 08/10/21 Time of Service: 08:36 Care Management Initial Assess REASON FOR HOSPITALIZATION:: COPD, Covid PAST MEDICAL HISTORY/PAST SURGICAL HISTORY:: All Active Problems . Acute exacerbation of chronic obstructive pulmonary disease (Acute). Lumbago with sciatica, right side (Acute). Medical History . Anxiety. CHF (congestive heart failure). COPD (chronic obstructive pulmonary disease). Kidney stones. Migraine. Multiple sclerosis. Obstructive sleep apnea. Surgical History . H/O section. History of hysterectomy. History of knee surgery. Hx of cholecystectomy. S/P colectomy PREVIOUS FUNCTIONAL STATUS/SOCIAL/FAMILY SUPPORTS:: Susy lives in [facility] with her Kirby. She drives and is independent at baseline. She has 2 daughters and a son. Her son lives in [place] and her daughter's live closeby. She feels very supported by her friends and family. CURRENT FUNCTIONAL STATUS:: CM met with Susy over the phone. She is being closely monitored and treated for Covid in the ICU. She has a HX of COPD and has home O2 through [facility]. She has a phone at her bedside and is able to communicate with family if needed. ADVANCE DIRECTIVES:: On File, [facility] is [facility] So Has patient been provided with info about the portal/API?: Yes Did the patient sign up for the portal?: No CODE STATUS:: Full Code INSURANCE COVERAGE / FINANCIAL ISSUES:: Medicaid CURRENT HOME/COMMUNITY SERVICES/EQUIPMENT:: Uses a cane PRN. PRIMARY CARE PHYSICIAN:: Paulina Alston POTENTIAL DISCHARGE NEEDS:: Follow up appointments PATIENT/FAMILY EDUCATION NEEDS:: Review discharge instructions, limitations and plan to follow up with community providers. ask me three. TRANSPORTATION:: via private vehicle with family vs. EMS (covid +) PLAN:: Anticipate Susy will be discharged home via private vehicle vs. EMS when medically cleared by Provider. [facility] Patient will follow up with community providers and discharge plan of care as prescribed. CM will continue to assess discharge planning needs.
[2021-08-10] MEDS: Acetylcysteine 600 MG CAP PO ×4 (09:03→21:11)
[2021-08-10] MEDS: Ipratropium/Albuterol 4 GM 120 PUFF INH IH ×3 (11:47→20:21)
--- NOTE | 2021-08-10 12:16 | PGE_ITS ---
Date of Service Date of service: 08/10/21 Time of Service: 12:16 Assessment and Plan Assessment and plan (1) Acute exacerbation of chronic obstructive pulmonary disease: Status: Acute Assessment and plan: High-doseTreat COPD exacerbation with disown along with scheduled doses of Combivent along with as needed albuterol MDI. Treat active COVID-19 infection with Remdesivir and baricitinib and high-dose steroids. Monitor patient for deterioration. Continue current nasal cannula which she normally wears 2 L/min at home anyhow. (2) Lumbago with sciatica, right side: Status: Acute Assessment and plan: We will switch her from IV Dilaudid to oral Dilaudid. She is not a candidate for NSAIDs given her requirement for high-dose prednisone. Hopefully prednisone will help with both her COPD exacerbation as well as her chronic back pain and radicular pain in her right leg. Qualifiers: Chronicity: chronic Back pain laterality: right Qualified Code(s): M54.41 - Lumbago with sciatica, right side; G89.29 - Other chronic pain (3) Restless leg syndrome: Status: Acute Assessment and plan: Increase her gabapentin from 600 mg 3 times daily to 900 mg 3 times daily and increase her Mirapex to 1 mg nightly. Subjective Subjective Interval history since last seen: Patient presented w/ worsening dyspnea and cough. Patient is unvaccinated against COVID-19 and has COPD for which she is on home oxygen@ 2 lpm. She has no fever or rigors and sputum has been clear to white. She has had no fever and no leukocytosis. She was found to have positive nasal swab for SARS-COV2. CT chest did not show any ground glass opacifications and no PE. She has atelectasis/scarring at her lung bases. Nevertheless she is admitted for treatment of COPD exacerbation and COVID-19 infection. She is currently on Remdesivir, solumedrol and baricitinib. I have changed her solumedrol to prednisone high dose 60 mg daily and put her on TMP/SMX for PJP prophylaxis. She is also on DuoNebs which I have changed to Combivent MDI. she is complaining of increased restless leg syndrome and in particularly right lower leg pain/calf pain. Exam Narrative Exam Narrative: Obese white female sitting up in her bed wearing her nasal cannula oxygen. She just finished lunch. She is alert oriented to person place time circumstance she gets moderately dyspneic with any conversation. Not using accessory respiratory muscles. Lungs diffusely diminished without wheezes or rhonchi Heart is regular rate and rhythm no appreciable murmur rub Abdomen is obese slightly distended but soft without guarding mildly tender with palpation but with mild rebound tenderness. Lower extremities she has normal pedal pulses no pitting edema. Right calf is somewhat tender to palpation. No appreciable difference in the size of right calf compared to left except the right calf feels little firmer compared to left calf. Objective Last Vital Signs Temp 36.6 C 08/10/21 00:35 Pulse 85 08/10/21 10:35 Resp 25 H 08/10/21 01:08 BP 140/88 08/10/21 10:35 Pulse Ox 89 L 08/10/21 10:35 Laboratory Results - last 24 hr 08/09/21 08/09/21 08/09/21 18:45 19:10 19:10 WBC 6.56 RBC 4.42 Hgb 14.1 Hct 43.0 MCV 97.3 H MCH 31.9 MCHC 32.8 RDW 12.1 Plt Count 193 MPV 9.9 Immature Gran % 0.5 Neutrophils % 71.6 Lymphocytes % 12.3 Monocytes % 8.8 Eosinophils % 6.3 Basophils % 0.5 Nucleated RBC % 0 Absolute Neutrophils 4.70 Absolute Lymphocytes 0.81 L Absolute Monocytes 0.58 Absolute Eosinophils 0.41 Absolute Basophils 0.03 D-Dimer VBG pH VBG pCO2 VBG pO2 VBG HCO3 VBG Total CO2 VBG O2 Saturation VBG Base Excess Sodium 139 Potassium 3.6 Chloride 103 Carbon Dioxide 30.3 Anion Gap 5.7 BUN 9 Creatinine 0.7 Estimated GFR/1.73 m2 >= 60.00 Glucose 112 H Calcium 8.9 Magnesium 2.2 Total Bilirubin 0.3 AST 128 H ALT 160 H Alkaline Phosphatase 86 Troponin I < 50 NT-Pro-B Natriuret Pep 46 Total Protein 7.4 Albumin 3.6 COVID-19 Source Nasal/Nares SARS-CoV-2 (PCR) POSITIVE A* 08/09/21 08/09/21 08/09/21 19:10 19:10 21:34 WBC RBC Hgb Hct MCV MCH MCHC RDW Plt Count MPV Immature Gran % Neutrophils % Lymphocytes % Monocytes % Eosinophils % Basophils % Nucleated RBC % Absolute Neutrophils Absolute Lymphocytes Absolute Monocytes Absolute Eosinophils Absolute Basophils D-Dimer 884 H VBG pH 7.42 H VBG pCO2 48 VBG pO2 67 VBG HCO3 31 H VBG Total CO2 27 VBG O2 Saturation 94 VBG Base Excess 7 H Sodium Potassium Chloride Carbon Dioxide Anion Gap BUN Creatinine Estimated GFR/1.73 m2 Glucose Calcium Magnesium Total Bilirubin AST ALT Alkaline Phosphatase Troponin I Cancelled NT-Pro-B Natriuret Pep Total Protein Albumin COVID-19 Source SARS-CoV-2 (PCR) Reviewed Pertinent PMH: Yes Objective Narrative Objective Narrative: Limited venous compression study was performed to the right leg from the inguinal crease all the way down to the popliteal space. Femoral vein and greater saphenous vein and common femoral vein as well as popliteal v ein were all compressible.
[2021-08-10] MEDS: Gabapentin 600 MG TAB 900 MG PO ×2 (13:29→21:12)
[2021-08-10] MEDS: predniSONE 20 MG TAB 60 MG PO (13:29)
[2021-08-10] MEDS: Cholecalciferol (Vitamin D3) 1,000 UNIT TAB 2000 UNITS PO (13:42)
[2021-08-10] MEDS: Lactobacillus Acidophilus CAP 1 CAP PO (15:40)
[2021-08-10] MEDS: HYDROmorphone 2 MG TAB 4 MG PO ×2 (15:47→21:13)
[2021-08-10] MEDS: Pramipexole 0.5 MG TAB 1 MG PO (18:50)
[2021-08-10] MEDS: Budesonide/Formoterol 80/4.5 6.9 GM 60 PUFF INH IH (20:24)
[2021-08-10] MEDS: Polyethylene Glycol 3350 17 GM PACKET PO (21:11)
[2021-08-10] MEDS: Montelukast 10 MG TAB PO (21:12)
[2021-08-10] MEDS: Atorvastatin 20 MG TAB 40 MG PO (21:13)
[2021-08-10] MEDS: Sennosides/Docusate Sodium TAB 1 TAB PO (21:13)
[2021-08-10] MEDS: Famotidine 20 MG TAB PO (21:14)
[2021-08-10] MEDS: Ascorbic Acid 500 MG TAB 1000 MG PO (21:16)
[2021-08-10 22:28] LABS: LDH 201 U/L (81-234)
[2021-08-11] VITALS (29 sets, daily range): BP systolic 132–151; BP diastolic 63–87; PULSE 74–84; RESP 17–22; TEMP 36–36.8; O2SAT 83–100
[2021-08-11 07:12] LABS: Abs Immature Grans 0.06 10^3/uL (0.0-0.06); Absolute Basophil Count 0.01 10^3/uL (0.0-0.2); Absolute Lymphocyte Count 1.44 10^3/uL (1.2-3.4); Absolute Monocyte Count 1.06 10^3/uL (0.1-0.8); Basophils % 0.1; HCT 42.3 % (36.0-46.0); HGB 13.5 g/dL (11.2-15.7); Immature Grans % 0.5; Lymphocytes % 11.7; MCH 31.6 pg (27.0-33.0); MCHC 31.9 % (32.0-36.0); MCV 99.1 fL (80-95); MPV 10.1 fL (8.0-11.0); Monocytes % 8.6; Neutrophils % 79.1; Nucleated RBC 0 %; Platelet Count 240 10^3/uL (130-400); RBC 4.27 10^6/uL (3.93-5.22); RDW 12.2 % (11.7-14.6); RDW-SD 44.9 fL; WBC 12.35 10^3/uL (4.4-10.8)
[2021-08-11 07:17] LABS: Absolute Neutrophil Count 9.77 10^3/uL (1.2-6.7)
[2021-08-11 07:46] LABS: ALT 128 U/L (14-59); AST 47 U/L (15-37); Albumin 3.3 g/dL (3.4-5.0); Alkaline Phosphatase 74 U/L (46-116); Anion Gap 2.7 mmol/L (3-11); BUN 21 mg/dL (7-18); Bilirubin, Total 0.2 mg/dL (0.2-1.0); C-Reactive Protein 0.22 mg/dL (0.0-0.3); CO2 32.3 mmol/L (21.0-32.0); CREATININE 0.7 mg/dL (0.55-1.02); Calcium 8.7 mg/dL (8.5-10.1); Chloride 102 mmol/L (98-107); Glucose 116 mg/dL (74-106); Potassium 4.7 mmol/L (3.5-5.1); Sodium 137 mmol/L (136-145); Total Protein 7.2 g/dL (6.4-8.2)
[2021-08-11 07:51] LABS: Procalcitonin < 0.1 ng/mL
[2021-08-11] MEDS: Budesonide/Formoterol 80/4.5 6.9 GM 60 PUFF INH IH ×2 (08:11→19:49)
[2021-08-11 08:12] LABS: Ferritin 212 ng/mL (8-252)
[2021-08-11] MEDS: Ipratropium/Albuterol 4 GM 120 PUFF INH IH ×4 (08:12→19:49)
[2021-08-11] MEDS: Tiotropium Bromide-Respimat 10 PUFF INH 2 PUFF IH (08:26)
[2021-08-11] MEDS: HYDROmorphone 2 MG TAB 4 MG PO ×2 (08:45→19:49)
[2021-08-11] MEDS: Gabapentin 600 MG TAB 900 MG PO ×3 (08:46→19:48)
[2021-08-11] MEDS: Cholecalciferol (Vitamin D3) 1,000 UNIT TAB 2000 UNITS PO (08:46)
[2021-08-11] MEDS: Loratidine 10 MG TAB PO (08:46)
[2021-08-11] MEDS: Famotidine 20 MG TAB PO ×2 (08:47→19:47)
[2021-08-11] MEDS: Lactobacillus Acidophilus CAP 1 CAP PO (08:47)
[2021-08-11] MEDS: Spironolactone 25 MG TAB PO (08:47)
[2021-08-11] MEDS: Acetylcysteine 600 MG CAP PO ×4 (08:47→19:48)
[2021-08-11] MEDS: Ascorbic Acid 500 MG TAB 1000 MG PO ×2 (08:47→19:47)
[2021-08-11] MEDS: Aspirin E.C. 81 MG TABEC PO (08:47)
[2021-08-11] MEDS: predniSONE 20 MG TAB 60 MG PO (08:47)
[2021-08-11] MEDS: DULoxetine 30 MG CAP 60 MG PO (08:48)
[2021-08-11] MEDS: Sennosides/Docusate Sodium TAB 1 TAB PO ×2 (08:48→19:48)
[2021-08-11] MEDS: Enoxaparin 40 MG/0.4 ML SYR SC (08:49)
[2021-08-11] MEDS: Polyethylene Glycol 3350 17 GM PACKET PO ×2 (08:49→19:47)
[2021-08-11] MEDS: Normal Saline Flush 10 ML SYR IVP ×2 (08:49→19:47)
--- NOTE | 2021-08-11 09:09 | CMPROGNOTE_ITS ---
- If Service Date Differs Date of service: 08/11/21 Time of Service: 09:09 Care Management Progress Note S/O: CM spoke with Susy over the phone. She is being closely monitored and treated in the ICU for Covid and COPD exacerbation. She shared with CM that she is tired, weak and achy and recognizes that these are symptoms associated with Covid. She is on 2-L of supplemental oxygen and her sats are in the low 90's. Susy has no needs at this time. She has a phone at her bed side and is going to try to get some rest. A: 61 year old female admitted to [facility] on 08/09/21 for COPD, Covid P: Anticipate Susy will be discharged home via private vehicle vs. EMS when medically cleared by Provider. She has home O2 at baseline through [facility] [place]. Patient will follow up with community providers and discharge plan of care as prescribed. CM will continue to assess discharge planning needs.
--- NOTE | 2021-08-11 11:08 | PGE_ITS ---
Date of Service Date of service: 08/11/21 Time of Service: 11:08 Assessment and Plan Assessment and plan (1) Acute exacerbation of chronic obstructive pulmonary disease: Status: Acute Assessment and plan: High-doseTreat COPD exacerbation with disown along with scheduled doses of Combivent along with as needed albuterol MDI. Her Trelegy was substituted w/ Spiriva and Symbicort. Continue current nasal cannula which she normally wears 2 L/min at home anyhow. COVID treatment as below. (2) COVID-19: Status: Acute Assessment and plan: continue high dose prednisone. CRP is now normal. Will repeat her inflammatory markers in the morning including CRP, procalcitonin, ferritin and d-dimer. If her inflammatory markers are all down, I think that she would not need the baricitinib. She should be able to go home soon once her acute COPD exacerbation improves. Her CT chest did not show any ground glass changes. I think her COVID-19 is behaving more like a viral syndrome than a pneumonitis. (3) Lumbago with sciatica, right side: Status: Acute Assessment and plan: We will switch her from IV Dilaudid to oral Dilaudid. She is not a candidate for NSAIDs given her requirement for high-dose prednisone. Hopefully prednisone will help with both her COPD exacerbation as well as her chronic back pain and radicular pain in her right leg. Qualifiers: Chronicity: chronic Back pain laterality: right Qualified Code(s): M54.41 - Lumbago with sciatica, right side; G89.29 - Other chronic pain (4) Restless leg syndrome: Status: Acute Assessment and plan: Increase her gabapentin from 600 mg 3 times daily to 900 mg 3 times daily and increase her Mirapex to 1 mg nightly. Subjective Subjective Interval history since last seen: Patient continues to have a nonproductive cough. She feels very fatigued and tired and overall just does not feel good. She is achy all over. She is currently on oxygen at 2 LPM which is her baseline needs and her SPO2 is remaining in the low 90's%. I explained to her that the fatigue and weakness and muscle aches is part of the viral syndrome from COVID- 19 and will take time to recover. She remains on Remdesivir, baricitinib and high dose prednisone. Exam Narrative Exam Narrative: Obes female lying in bed on her right side in upright position. No acute respiratory distress Lungs: diffuse wheezing Heart: RRR Abdomen: obese, soft, nontender Legs: without edema and calfs are not swollen. Objective Last Vital Signs Temp 36.0 C L 08/11/21 08:30 Pulse 79 08/11/21 08:37 Resp 17 08/11/21 08:30 BP 132/63 08/11/21 08:37 Pulse Ox 90 L 08/11/21 09:41 Laboratory Results - last 24 hr 08/10/21 08/10/21 08/11/21 21:20 21:20 06:15 WBC RBC Hgb Hct MCV MCH MCHC RDW Plt Count MPV Immature Gran % Neutrophils % Lymphocytes % Monocytes % Eosinophils % Basophils % Nucleated RBC % Absolute Neutrophils Absolute Lymphocytes Absolute Monocytes Absolute Eosinophils Absolute Basophils Sodium 137 Potassium 4.7 D Chloride 102 Carbon Dioxide 32.3 H Anion Gap 2.7 L BUN 21 H D Creatinine 0.7 Estimated GFR/1.73 m2 >= 60.00 Glucose 116 H Calcium 8.7 Ferritin 212 Total Bilirubin 0.2 AST 47 H ALT 128 H Alkaline Phosphatase 74 Lactate Dehydrogenase 201 C-Reactive Protein 0.22 Total Protein 7.2 Albumin 3.3 L Procalcitonin Patient ABO/Rh A Positive Antibody Screen NEGATIVE 08/11/21 08/11/21 06:15 06:15 WBC 12.35 H RBC 4.27 Hgb 13.5 Hct 42.3 MCV 99.1 H MCH 31.6 MCHC 31.9 L RDW 12.2 Plt Count 240 MPV 10.1 Immature Gran % 0.5 Neutrophils % 79.1 Lymphocytes % 11.7 Monocytes % 8.6 Eosinophils % 0.0 Basophils % 0.1 Nucleated RBC % 0 Absolute Neutrophils 9.77 H Absolute Lymphocytes 1.44 Absolute Monocytes 1.06 H Absolute Eosinophils 0.00 Absolute Basophils 0.01 Sodium Potassium Chloride Carbon Dioxide Anion Gap BUN Creatinine Estimated GFR/1.73 m2 Glucose Calcium Ferritin Total Bilirubin AST ALT Alkaline Phosphatase Lactate Dehydrogenase C-Reactive Protein Total Protein Albumin Procalcitonin < 0.1 Patient ABO/Rh Antibody Screen
[2021-08-11] MEDS: Lactulose 20 GM/30 ML CUP PO ×2 (11:41→19:47)
[2021-08-11] MEDS: Pramipexole 0.5 MG TAB 1 MG PO (17:33)
[2021-08-11] MEDS: guaiFENesin/CODEINE PHOSPHATE 10 ML CUP 5 ML PO (17:34)
[2021-08-11] MEDS: Montelukast 10 MG TAB PO (19:47)
[2021-08-11] MEDS: Atorvastatin 20 MG TAB 40 MG PO (19:47)
[2021-08-11] MEDS: Benzonatate 100 MG CAP PO (19:48)
[2021-08-11] MEDS: Zolpidem 5 MG TAB PO (19:49)
--- NOTE | 2021-08-11 19:57 | NUR.NOTE ---
rn enters pt room. Pt, don't tell anyone but I fell earlier. I just got up off the floor, I have been on the floor for a long time. RN and PT review that her knees hit the floor she reports no pain in her knees. there is no bruising, swelling, or abrasions found on the knees. Pt denies injury. Dr Alva notified of reported fall and pt and rn's assessment of no injury. PT has been independent in the room and reports having her sheet around her ankle when this happened. RNS have monitored all pt's rooms from desk as two other require monitoring at this time and had never seen the pt on the floor, floor between bed and her chair is visible form the desk and this is where she reported having fallen.
[2021-08-12 01:03] VITALS: BP 104/60; PULSE 75; RESP 20; TEMP 37.1; O2SAT 91
[2021-08-12] MEDS: guaiFENesin/CODEINE PHOSPHATE 10 ML CUP 5 ML PO (01:07)
[2021-08-12] MEDS: HYDROmorphone 2 MG TAB 4 MG PO ×2 (01:48→15:22)
[2021-08-12] MEDS: Normal Saline Flush 10 ML SYR IVP (03:20)
[2021-08-12 07:28] LABS: Abs Immature Grans 0.06 10^3/uL (0.0-0.06); Absolute Basophil Count 0.01 10^3/uL (0.0-0.2); Absolute Eosinophil Count 0.01 10^3/uL (0.0-0.7); Absolute Lymphocyte Count 3.55 10^3/uL (1.2-3.4); Absolute Monocyte Count 0.81 10^3/uL (0.1-0.8); Basophils % 0.1; Eosinophils % 0.1; HCT 44.7 % (36.0-46.0); HGB 13.8 g/dL (11.2-15.7); Immature Grans % 0.5; Lymphocytes % 32.1; MCH 31.4 pg (27.0-33.0); MCHC 30.9 % (32.0-36.0); MCV 101.8 fL (80-95); MPV 9.9 fL (8.0-11.0); Monocytes % 7.3; Neutrophils % 59.9; Nucleated RBC 0 %; Platelet Count 262 10^3/uL (130-400); RBC 4.39 10^6/uL (3.93-5.22); RDW 12.1 % (11.7-14.6); RDW-SD 45.4 fL; WBC 11.05 10^3/uL (4.4-10.8)
[2021-08-12 07:30] LABS: Absolute Neutrophil Count 6.62 10^3/uL (1.2-6.7)
[2021-08-12 08:03] LABS: ALT 150 U/L (14-59); AST 76 U/L (15-37); Albumin 3.6 g/dL (3.4-5.0); Alkaline Phosphatase 78 U/L (46-116); Anion Gap 5.9 mmol/L (3-11); BUN 21 mg/dL (7-18); Bilirubin, Total 0.2 mg/dL (0.2-1.0); CO2 33.1 mmol/L (21.0-32.0); Calcium 8.4 mg/dL (8.5-10.1); Chloride 99 mmol/L (98-107); Estimated GFR 56.37 (mL/min/1.73m2); Ferritin 293 ng/mL (8-252); Glucose 131 mg/dL (74-106); Potassium 4.1 mmol/L (3.5-5.1); Sodium 138 mmol/L (136-145); Total Protein 7.5 g/dL (6.4-8.2)
[2021-08-12] MEDS: predniSONE 20 MG TAB 60 MG PO (08:06)
[2021-08-12] MEDS: Gabapentin 600 MG TAB 900 MG PO ×3 (08:06→20:57)
[2021-08-12] MEDS: Ascorbic Acid 500 MG TAB 1000 MG PO ×2 (08:06→20:57)
[2021-08-12] MEDS: Sennosides/Docusate Sodium TAB 1 TAB PO ×2 (08:07→20:57)
[2021-08-12] MEDS: Polyethylene Glycol 3350 17 GM PACKET PO ×2 (08:07→20:56)
[2021-08-12] MEDS: Famotidine 20 MG TAB PO ×2 (08:07→20:57)
[2021-08-12] MEDS: Cholecalciferol (Vitamin D3) 1,000 UNIT TAB 2000 UNITS PO (08:08)
[2021-08-12] MEDS: DULoxetine 30 MG CAP 60 MG PO (08:08)
[2021-08-12 08:09] LABS: D-Dimer 923 ng/mlFEU (<500)
[2021-08-12] MEDS: Lactulose 20 GM/30 ML CUP PO ×2 (08:09→20:57)
[2021-08-12] MEDS: Aspirin E.C. 81 MG TABEC PO (08:09)
[2021-08-12] MEDS: Loratidine 10 MG TAB PO (08:09)
[2021-08-12] MEDS: Lactobacillus Acidophilus CAP 1 CAP PO (08:09)
[2021-08-12] MEDS: Enoxaparin 40 MG/0.4 ML SYR SC (08:10)
[2021-08-12] MEDS: Budesonide/Formoterol 80/4.5 6.9 GM 60 PUFF INH IH ×2 (08:19→21:02)
[2021-08-12] MEDS: Tiotropium Bromide-Respimat 10 PUFF INH 2 PUFF IH (08:20)
[2021-08-12] MEDS: Ipratropium/Albuterol 4 GM 120 PUFF INH IH ×4 (08:21→21:03)
[2021-08-12 08:28] LABS: C-Reactive Protein < 0.05 mg/dL (0.0-0.3)
[2021-08-12 08:41] VITALS: BP 125/77; PULSE 74; RESP 18; TEMP 36.2; O2SAT 90
[2021-08-12 09:27] LABS: HIV-1/2 Ag & Ab Screen Negative (Negative)
[2021-08-12 09:46] LABS: HBs Antibody, Qual Negative (See Note); HBs Antibody, Quant <3.1 mIU/mL (See Note); Hepatitis B Core Antibody Negative (Negative); Hepatitis B surface Ag Negative (Negative); Hepatitis C Ab w Rflx HCV PCR Negative (Negative)
[2021-08-12] MEDS: Spironolactone 25 MG TAB PO (10:14)
[2021-08-12] MEDS: Acetylcysteine 600 MG CAP PO ×4 (10:14→20:57)
--- NOTE | 2021-08-12 15:24 | PDOC.CMPRO ---
- If Service Date Differs Date of service: 08/12/21 Time of Service: 15:24 Care Management Progress Note S/O: CM spoke with Susy over the phone. She transferred to the Med Surg Unit today and continues to require treatment for Covid and COPD exacerbation. She is on 3-L of supplemental oxygen and her sats are in the low 90's. Susy has no needs at this time. She has a phone at her bed side and is going to try to get some rest. A: 61 year old female admitted to [facility] on 08/09/21 for COPD, Covid P: Anticipate Susy will be discharged home via private vehicle vs. EMS when medically cleared by Provider. She has home O2 at baseline through [facility]. Patient will follow up with community providers and discharge plan of care as prescribed. CM will continue to assess discharge planning needs.
[2021-08-12 15:36] VITALS: BP 133/74; PULSE 82; RESP 18; TEMP 36.1; O2SAT 89
--- NOTE | 2021-08-12 16:01 | W.PM.PROGNOT ---
Date of Service Date of service: 08/12/21 Time of Service: 16:01 Assessment and Plan Assessment and plan (1) Acute exacerbation of chronic obstructive pulmonary disease: Status: Acute Assessment and plan: I have increased her prednisone to 80 mg daily in attempt to reduce her bronchospasm and inflammation from COVID. She remains on Symbicort and Spiriva (substitute for her Trelegy) I put her on Bactrim for PJP prophylaxis while she is on high dose steroids. However she has shown no sign of bacterial infection. CT chest did not demonstrate any consolidation nor any ground glass changes. I think that short burst of prednisone for 5 days should be sufficient. I think that if she remains on her baseline oxygen she should be discharged home tomorrow. (2) COVID-19: Status: Acute Assessment and plan: continue high dose prednisone. CRP is now normal. Will repeat her inflammatory markers in the morning including CRP, procalcitonin, ferritin and d-dimer. If her inflammatory markers are all down, I think that she would not need the baricitinib. She should be able to go home soon once her acute COPD exacerbation improves. Her CT chest did not show any ground glass changes. I think her COVID-19 is behaving more like a viral syndrome than a pneumonitis. (3) Lumbago with sciatica, right side: Status: Acute Assessment and plan: We will switch her from IV Dilaudid to oral Dilaudid. She is not a candidate for NSAIDs given her requirement for high-dose prednisone. Hopefully prednisone will help with both her COPD exacerbation as well as her chronic back pain and radicular pain in her right leg. Qualifiers: Chronicity: chronic Back pain laterality: right Qualified Code(s): M54.41 - Lumbago with sciatica, right side; G89.29 - Other chronic pain (4) Restless leg syndrome: Status: Acute Assessment and plan: Increase her gabapentin from 600 mg 3 times daily to 900 mg 3 times daily and increase her Mirapex to 1 mg nightly. Subjective Subjective Interval history since last seen: Susy still feels awful. Nothing specific other than she has a nonproductive cough and aches all over. She is afebrile. Her oxygen saturation is running 89 to 91% on 3 lpm. At home she uses 2 lpm. Exam Narrative Exam Narrative: Susy is an obese white female who has plethoric appearance to her face and skin She is able to speak to me in complete sentences w/out getting out of breath. While at first she indicated to me she feels awful, later in our conversation she showed me how the pain medications (oral dilaudid) has improved her arms and legs. How they do not hurt for her to move around and then she showed me how she has been getting out of bed and doing squats holding onto the bedside commode Her lung exam reveals scattered wheezes Heart: RRR Abdomen: obese, soft, nondistended and normal bowel sounds Extremities: no edema or cyanosis. Objective Last Vital Signs Temp 36.1 C L 08/12/21 15:36 Pulse 82 08/12/21 15:36 Resp 18 08/12/21 15:36 BP 133/74 08/12/21 15:36 Pulse Ox 89 L 08/12/21 15:36 Laboratory Results - last 24 hr 08/10/21 08/10/21 08/12/21 21:20 21:20 06:20 WBC RBC Hgb Hct MCV MCH MCHC RDW Plt Count MPV Immature Gran % Neutrophils % Lymphocytes % Monocytes % Eosinophils % Basophils % Nucleated RBC % Absolute Neutrophils Absolute Lymphocytes Absolute Monocytes Absolute Eosinophils Absolute Basophils D-Dimer Sodium 138 Potassium 4.1 Chloride 99 Carbon Dioxide 33.1 H Anion Gap 5.9 BUN 21 H Creatinine 1.0 Estimated GFR/1.73 m2 56.37 Glucose 131 H Calcium 8.4 L Ferritin 293 H Total Bilirubin 0.2 AST 76 H ALT 150 H Alkaline Phosphatase 78 C-Reactive Protein < 0.05 Total Protein 7.5 Albumin 3.6 Hep Bs Antigen Negative Hep Bs Antibody Negative Hep Bs Antibody, Quant <3.1 Hep B Core Total Ab Negative Hepatitis C Antibody Negative HIV 1&2 Ag/Ab, 4th Gen Negative 08/12/21 08/12/21 06:20 06:20 WBC 11.05 H RBC 4.39 Hgb 13.8 Hct 44.7 MCV 101.8 H MCH 31.4 MCHC 30.9 L RDW 12.1 Plt Count 262 MPV 9.9 Immature Gran % 0.5 Neutrophils % 59.9 Lymphocytes % 32.1 Monocytes % 7.3 Eosinophils % 0.1 Basophils % 0.1 Nucleated RBC % 0 Absolute Neutrophils 6.62 Absolute Lymphocytes 3.55 H Absolute Monocytes 0.81 H Absolute Eosinophils 0.01 Absolute Basophils 0.01 D-Dimer 923 H Sodium Potassium Chloride Carbon Dioxide Anion Gap BUN Creatinine Estimated GFR/1.73 m2 Glucose Calcium Ferritin Total Bilirubin AST ALT Alkaline Phosphatase C-Reactive Protein Total Protein Albumin Hep Bs Antigen Hep Bs Antibody Hep Bs Antibody, Quant Hep B Core Total Ab Hepatitis C Antibody HIV 1&2 Ag/Ab, 4th Gen
[2021-08-12] MEDS: Pramipexole 0.5 MG TAB 1 MG PO (17:06)
[2021-08-12 20:54] VITALS: BP 126/72; PULSE 78; RESP 22; TEMP 36.6; O2SAT 91
[2021-08-12] MEDS: Montelukast 10 MG TAB PO (20:57)
[2021-08-12] MEDS: Atorvastatin 20 MG TAB 40 MG PO (20:58)
[2021-08-13] MEDS: Normal Saline Flush 10 ML SYR IVP (02:09)
[2021-08-13 02:10] VITALS: BP 100/63; PULSE 72; RESP 20; TEMP 36.4; O2SAT 94
[2021-08-13] MEDS: HYDROmorphone 2 MG TAB 4 MG PO ×3 (06:18→20:22)
[2021-08-13 07:09] LABS: Abs Immature Grans 0.02 10^3/uL (0.0-0.06); Absolute Basophil Count 0.02 10^3/uL (0.0-0.2); Absolute Eosinophil Count 0.03 10^3/uL (0.0-0.7); Absolute Lymphocyte Count 2.89 10^3/uL (1.2-3.4); Absolute Monocyte Count 0.71 10^3/uL (0.1-0.8); Absolute Neutrophil Count 5.79 10^3/uL (1.2-6.7); Basophils % 0.2; Eosinophils % 0.3; HCT 41.3 % (36.0-46.0); Immature Grans % 0.2; Lymphocytes % 30.5; MCH 31.9 pg (27.0-33.0); MCHC 31.5 % (32.0-36.0); MCV 101.2 fL (80-95); MPV 9.7 fL (8.0-11.0); Monocytes % 7.5; Neutrophils % 61.3; Nucleated RBC 0 %; Platelet Count 191 10^3/uL (130-400); RBC 4.08 10^6/uL (3.93-5.22); RDW-SD 45.4 fL; WBC 9.46 10^3/uL (4.4-10.8)
[2021-08-13 07:37] LABS: ALT 167 U/L (14-59); AST 82 U/L (15-37); Albumin 3.2 g/dL (3.4-5.0); Alkaline Phosphatase 66 U/L (46-116); Anion Gap 2.5 mmol/L (3-11); BUN 16 mg/dL (7-18); Bilirubin, Total 0.2 mg/dL (0.2-1.0); C-Reactive Protein 0.08 mg/dL (0.0-0.3); CO2 36.5 mmol/L (21.0-32.0); CREATININE 0.8 mg/dL (0.55-1.02); Calcium 8.2 mg/dL (8.5-10.1); Chloride 99 mmol/L (98-107); Glucose 120 mg/dL (74-106); Potassium 3.8 mmol/L (3.5-5.1); Sodium 138 mmol/L (136-145); Total Protein 6.6 g/dL (6.4-8.2)
[2021-08-13] MEDS: Lactulose 20 GM/30 ML CUP PO ×2 (07:54→20:08)
[2021-08-13] MEDS: Enoxaparin 40 MG/0.4 ML SYR SC (07:54)
[2021-08-13] MEDS: Ascorbic Acid 500 MG TAB 1000 MG PO ×2 (07:55→20:08)
[2021-08-13] MEDS: Polyethylene Glycol 3350 17 GM PACKET PO ×2 (07:55→20:09)
[2021-08-13] MEDS: Lactobacillus Acidophilus CAP 1 CAP PO (07:56)
[2021-08-13] MEDS: Loratidine 10 MG TAB PO (07:56)
[2021-08-13] MEDS: Spironolactone 25 MG TAB PO (07:56)
[2021-08-13] MEDS: Famotidine 20 MG TAB PO ×2 (07:56→20:08)
[2021-08-13] MEDS: predniSONE 20 MG TAB 80 MG PO (07:56)
[2021-08-13] MEDS: DULoxetine 30 MG CAP 60 MG PO (07:57)
[2021-08-13] MEDS: Gabapentin 600 MG TAB 900 MG PO ×3 (07:57→20:08)
[2021-08-13] MEDS: Aspirin E.C. 81 MG TABEC PO (07:57)
[2021-08-13] MEDS: Acetylcysteine 600 MG CAP PO ×4 (07:57→20:08)
[2021-08-13] MEDS: Cholecalciferol (Vitamin D3) 1,000 UNIT TAB 2000 UNITS PO (07:57)
[2021-08-13] MEDS: Sennosides/Docusate Sodium TAB 1 TAB PO ×2 (07:58→20:08)
[2021-08-13 08:01] LABS: Ferritin 315 ng/mL (8-252)
[2021-08-13 08:07] VITALS: BP 128/76; PULSE 72; RESP 18; TEMP 35.9; O2SAT 90
[2021-08-13] MEDS: Tiotropium Bromide-Respimat 10 PUFF INH 2 PUFF IH (08:18)
[2021-08-13] MEDS: Ipratropium/Albuterol 4 GM 120 PUFF INH IH ×4 (08:18→20:09)
[2021-08-13] MEDS: Budesonide/Formoterol 80/4.5 6.9 GM 60 PUFF INH IH ×2 (08:18→20:09)
[2021-08-13 10:50] VITALS: O2SAT 95
[2021-08-13 11:02] VITALS: O2SAT 92
--- NOTE | 2021-08-13 11:03 | RESPIRATORY ---
RT came in to assess patient. Pt is currently at her baseline of 2-3L O2 via nasal cannula. Pt did perform on incentive spirometer, reaching about 500 for each attempt. Pt stated she could not perform walk to assess O2 at this time. Pt has verbalized that she is experiencing some emotional distress due to missing family and it being [place] today.
[2021-08-13 15:56] VITALS: BP 126/77; PULSE 77; RESP 18; TEMP 36.5; O2SAT 89
[2021-08-13] MEDS: Pramipexole 0.5 MG TAB 1 MG PO (17:00)
--- NOTE | 2021-08-13 17:24 | W.PM.PROGNOT ---
Date of Service Date of service: 08/13/21 Time of Service: 17:24 Assessment and Plan Assessment and plan (1) Acute exacerbation of chronic obstructive pulmonary disease: Status: Acute Assessment and plan: Due to COVID-19 Improving. Decrease prednisone to 60 mg. Check exercise oxymetry. The patient was given a 24 hour notice of discharge today with the qualifier that if her exercise oxymetry shows worsening O2 requirement, we could keep her longer. (2) COVID-19: Status: Acute Assessment and plan: Agreed that this is likely a trigger for her COPD exacerbation but there is no evidence of COVID-19 pneumonia at this time. Continue prednisone, remdesivir. Low threshold to stop baricitinib. (3) Lumbago with sciatica, right side: Status: Acute Assessment and plan: Continue PO dilaudid. Qualifiers: Chronicity: chronic Back pain laterality: right Qualified Code(s): M54.41 - Lumbago with sciatica, right side; G89.29 - Other chronic pain (4) Restless leg syndrome: Status: Acute Assessment and plan: Continue gabapentin 900 mg 3 times daily and Mirapex to 1 mg nightly. (5) Chronic respiratory failure with hypoxia: Status: Chronic Assessment and plan: At baseline at rest. Check exercise oxymetry in am. If at baseline, anticipate discharge home tomorrow. Subjective Subjective Interval history since last seen: Ms So states that she does not feel good. She hurts all over. She feels weak. She got dizzy today while walking in the room and fell. She is on her usual 2-3 L of O2 at rest and did not participate with exercise oxymetry with RT. Denies chest pain, nausea, dairrhea. She thinks she can manage at home, but is concerned that she is still infectious and might infect her family. Exam Narrative Exam Narrative: General: Talkative obese female who is speaking in lengthy sentences without getting dyspneic/tachypneic HEENT: EOMI, MMM Heart: RRR, no m/r/g Lungs: Diminished breath sounds B Abdomen: soft, nontender, nondistended Extremities: nonpitting edema BLE's Objective Last Vital Signs Temp 36.5 C 08/13/21 15:56 Pulse 77 08/13/21 15:56 Resp 18 08/13/21 15:56 BP 126/77 08/13/21 15:56 Pulse Ox 89 L 08/13/21 15:56 Laboratory Results - last 24 hr 08/13/21 08/13/21 06:50 06:50 WBC 9.46 RBC 4.08 Hgb 13.0 Hct 41.3 MCV 101.2 H MCH 31.9 MCHC 31.5 L RDW 12.0 Plt Count 191 MPV 9.7 Immature Gran % 0.2 Neutrophils % 61.3 Lymphocytes % 30.5 Monocytes % 7.5 Eosinophils % 0.3 Basophils % 0.2 Nucleated RBC % 0 Absolute Neutrophils 5.79 Absolute Lymphocytes 2.89 Absolute Monocytes 0.71 Absolute Eosinophils 0.03 Absolute Basophils 0.02 Sodium 138 Potassium 3.8 Chloride 99 Carbon Dioxide 36.5 H Anion Gap 2.5 L BUN 16 Creatinine 0.8 Estimated GFR/1.73 m2 >= 60.00 Glucose 120 H Calcium 8.2 L Ferritin 315 H Total Bilirubin 0.2 AST 82 H ALT 167 H Alkaline Phosphatase 66 C-Reactive Protein 0.08 Total Protein 6.6 Albumin 3.2 L
[2021-08-13 20:02] VITALS: BP 128/77; PULSE 80; RESP 18; TEMP 36.5; O2SAT 94
[2021-08-13] MEDS: Atorvastatin 20 MG TAB 40 MG PO (20:08)
[2021-08-13] MEDS: Montelukast 10 MG TAB PO (20:10)
[2021-08-13] MEDS: guaiFENesin/CODEINE PHOSPHATE 10 ML CUP 5 ML PO (22:45)
[2021-08-13] MEDS: Zolpidem 5 MG TAB PO (22:45)
[2021-08-14] VITALS (7 sets, daily range): BP systolic 105–126; BP diastolic 53–83; PULSE 74–80; RESP 18–20; TEMP 35.6–36.4; O2SAT 92–95
[2021-08-14] MEDS: Albuterol HFA 8 GM 60 PUFF INH IH (02:13)
[2021-08-14] MEDS: HYDROmorphone 2 MG TAB 4 MG PO ×3 (05:11→17:16)
[2021-08-14 07:52] LABS: Abs Immature Grans 0.04 10^3/uL (0.0-0.06); Absolute Basophil Count 0.02 10^3/uL (0.0-0.2); Absolute Eosinophil Count 0.04 10^3/uL (0.0-0.7); Absolute Lymphocyte Count 2.91 10^3/uL (1.2-3.4); Absolute Neutrophil Count 6.74 10^3/uL (1.2-6.7); Basophils % 0.2; Eosinophils % 0.4; HGB 13.3 g/dL (11.2-15.7); Immature Grans % 0.4; Lymphocytes % 27.1; MCH 31.7 pg (27.0-33.0); MCHC 31.7 % (32.0-36.0); MPV 9.6 fL (8.0-11.0); Monocytes % 9.3; Neutrophils % 62.6; Nucleated RBC 0 %; Platelet Count 190 10^3/uL (130-400); RDW 11.9 % (11.7-14.6); RDW-SD 44.7 fL; WBC 10.75 10^3/uL (4.4-10.8)
[2021-08-14 08:07] LABS: Prothrombin Time 10.1 sec (9.3-11.0)
[2021-08-14 08:16] LABS: ALT 208 U/L (14-59); AST 83 U/L (15-37); Albumin 3.3 g/dL (3.4-5.0); Alkaline Phosphatase 81 U/L (46-116); Anion Gap 1.5 mmol/L (3-11); BUN 16 mg/dL (7-18); Bilirubin, Direct 0.1 mg/dL (0.0-0.2); Bilirubin, Total 0.2 mg/dL (0.2-1.0); C-Reactive Protein 0.09 mg/dL (0.0-0.3); CO2 37.5 mmol/L (21.0-32.0); CREATININE 0.9 mg/dL (0.55-1.02); Calcium 8.2 mg/dL (8.5-10.1); Chloride 100 mmol/L (98-107); Glucose 131 mg/dL (74-106); Magnesium 2.3 mg/dL (1.8-2.4); Potassium 3.5 mmol/L (3.5-5.1); Sodium 139 mmol/L (136-145); Total Protein 6.9 g/dL (6.4-8.2)
[2021-08-14 08:32] LABS: D-Dimer 696 ng/mlFEU (<500)
[2021-08-14 08:41] LABS: Ferritin 329 ng/mL (8-252)
[2021-08-14] MEDS: Enoxaparin 40 MG/0.4 ML SYR SC (08:51)
[2021-08-14] MEDS: Normal Saline Flush 10 ML SYR IVP ×2 (08:51→21:25)
[2021-08-14] MEDS: guaiFENesin/CODEINE PHOSPHATE 10 ML CUP 5 ML PO (08:52)
[2021-08-14] MEDS: Lactulose 20 GM/30 ML CUP PO ×2 (08:52→21:25)
[2021-08-14] MEDS: Acetylcysteine 600 MG CAP PO ×4 (08:53→21:26)
[2021-08-14] MEDS: Polyethylene Glycol 3350 17 GM PACKET PO ×2 (08:53→21:25)
[2021-08-14] MEDS: Cholecalciferol (Vitamin D3) 1,000 UNIT TAB 2000 UNITS PO (08:53)
[2021-08-14] MEDS: DULoxetine 30 MG CAP 60 MG PO (08:53)
[2021-08-14] MEDS: Famotidine 20 MG TAB PO ×2 (08:53→21:26)
[2021-08-14] MEDS: Loratidine 10 MG TAB PO (08:55)
[2021-08-14] MEDS: Nystatin 500000 UNITS/5 ML SUSP 5ML CUP PO ×4 (10:08→21:26)
[2021-08-14] MEDS: Ipratropium/Albuterol 4 GM 120 PUFF INH IH ×4 (11:55→21:26)
[2021-08-14] MEDS: Gabapentin 600 MG TAB 900 MG PO ×2 (13:40→21:26)
[2021-08-14] MEDS: Budesonide/Formoterol 80/4.5 6.9 GM 60 PUFF INH IH ×2 (15:15→21:27)
[2021-08-14] MEDS: Tiotropium Bromide-Respimat 10 PUFF INH 2 PUFF IH (15:15)
[2021-08-14] MEDS: Pramipexole 0.5 MG TAB 1 MG PO (16:15)
--- NOTE | 2021-08-14 17:27 | W.PM.PROGNOT ---
Date of Service Date of service: 08/14/21 Time of Service: 17:28 Assessment and Plan Assessment and plan (1) Acute exacerbation of chronic obstructive pulmonary disease: Status: Acute Assessment and plan: Due to COVID-19 Stable oxygen requirements. Continue prednisone 60 mg. Not able to be discharged home today due to odynophagia less so than due to COVID-19. Check exercise oxymetry. (2) COVID-19: Status: Acute Assessment and plan: Agreed that this is likely a trigger for her COPD exacerbation but there is no evidence of COVID-19 pneumonia at this time. Continue prednisone, remdesivir. Low threshold to stop baricitinib. (3) Thrush, oral: Status: Acute Assessment and plan: rx Nystatin swish/swallow + fluconazole. I downgraded her diet to full liquids. (4) Chronic respiratory failure with hypoxia: Status: Chronic Assessment and plan: At baseline at rest. Check exercise oxymetry tomorrow if patient is ready for discharge. If at baseline, anticipate discharge home tomorrow. (5) Lumbago with sciatica, right side: Status: Acute Assessment and plan: Continue PO dilaudid. Qualifiers: Chronicity: chronic Back pain laterality: right Qualified Code(s): M54.41 - Lumbago with sciatica, right side; G89.29 - Other chronic pain (6) Restless leg syndrome: Status: Acute Assessment and plan: Continue gabapentin 900 mg 3 times daily and Mirapex to 1 mg nightly. (7) DVT prophylaxis: Status: Acute Assessment and plan: SC enoxaparin (8) Discharge planning issues: Status: Acute Assessment and plan: Full code Possible discharge home tomorrow Subjective Subjective Interval history since last seen: Complaints of diffuse pain which is worse than childbirth. Reports a headache. States breathing is not at her baseline and describes it as weird. We discussed how her O2 sats at doing well on her current O2 (3-4L of O2 by NC). Reports sore throat. Thinks that warm liquids will make it better. Has difficulty swallowing pills. Tested negative for strep. No chest pain or nausea. States she feels weak. Exam Narrative Exam Narrative: General: Talkative obese female who is sitting up in a chair, sad affect, speaking in lengthy sentences without getting dyspneic/tachypneic HEENT: EOMI, dry MM, +thrush Heart: RRR, no m/r/g Lungs: Diminished breath sounds B Abdomen: soft, nontender, nondistended Extremities: nonpitting edema BLE's Objective Last Vital Signs Temp 35.6 C L 08/14/21 16:12 Pulse 74 08/14/21 16:12 Resp 20 08/14/21 16:12 BP 109/66 08/14/21 16:12 Pulse Ox 92 08/14/21 16:12 Laboratory Results - last 24 hr 08/14/21 08/14/21 08/14/21 07:30 07:30 07:30 WBC 10.75 RBC 4.20 Hgb 13.3 Hct 42.0 MCV 100.0 H MCH 31.7 MCHC 31.7 L RDW 11.9 Plt Count 190 MPV 9.6 Immature Gran % 0.4 Neutrophils % 62.6 Lymphocytes % 27.1 Monocytes % 9.3 Eosinophils % 0.4 Basophils % 0.2 Nucleated RBC % 0 Absolute Neutrophils 6.74 H Absolute Lymphocytes 2.91 Absolute Monocytes 1.00 H Absolute Eosinophils 0.04 Absolute Basophils 0.02 PT 10.1 INR 1.0 D-Dimer 696 H Sodium 139 Potassium 3.5 Chloride 100 Carbon Dioxide 37.5 H Anion Gap 1.5 L BUN 16 Creatinine 0.9 Estimated GFR/1.73 m2 >= 60.00 Glucose 131 H Calcium 8.2 L Magnesium 2.3 Ferritin 329 H Total Bilirubin 0.2 Conjugated Bilirubin 0.1 AST 83 H ALT 208 H Alkaline Phosphatase 81 C-Reactive Protein 0.09 Total Protein 6.9 Albumin 3.3 L
[2021-08-14] MEDS: Fluconazole 100 MG TAB PO (18:08)
[2021-08-14] MEDS: Montelukast 10 MG TAB PO (21:26)
[2021-08-14] MEDS: Ascorbic Acid 500 MG TAB 1000 MG PO (21:26)
[2021-08-14] MEDS: Atorvastatin 20 MG TAB 40 MG PO (21:26)
[2021-08-14] MEDS: Sennosides/Docusate Sodium TAB 1 TAB PO (21:26)
[2021-08-15] VITALS (7 sets, daily range): BP systolic 107–136; BP diastolic 69–75; PULSE 73–86; RESP 18–20; TEMP 36.3–36.5; O2SAT 82–96
[2021-08-15] MEDS: Normal Saline Flush 10 ML SYR IVP (02:22)
[2021-08-15] MEDS: Zolpidem 5 MG TAB PO ×2 (02:23→21:57)
[2021-08-15] MEDS: Normal Saline 500 ML 30 ML IV (02:55)
[2021-08-15] MEDS: Nystatin 500000 UNITS/5 ML SUSP 5ML CUP PO ×5 (06:43→21:54)
[2021-08-15 07:53] LABS: Abs Immature Grans 0.02 10^3/uL (0.0-0.06); Absolute Basophil Count 0.01 10^3/uL (0.0-0.2); Absolute Eosinophil Count 0.14 10^3/uL (0.0-0.7); Absolute Lymphocyte Count 1.25 10^3/uL (1.2-3.4); Absolute Monocyte Count 0.43 10^3/uL (0.1-0.8); Absolute Neutrophil Count 5.18 10^3/uL (1.2-6.7); Basophils % 0.1; HCT 39.9 % (36.0-46.0); HGB 13.3 g/dL (11.2-15.7); Immature Grans % 0.3; Lymphocytes % 17.8; MCH 32.4 pg (27.0-33.0); MCHC 33.3 % (32.0-36.0); MCV 97.1 fL (80-95); MPV 9.8 fL (8.0-11.0); Monocytes % 6.1; Neutrophils % 73.7; Nucleated RBC 0 %; Platelet Count 164 10^3/uL (130-400); RBC 4.11 10^6/uL (3.93-5.22); RDW 12.1 % (11.7-14.6); RDW-SD 43.8 fL; WBC 7.03 10^3/uL (4.4-10.8)
[2021-08-15] MEDS: Ascorbic Acid 500 MG TAB 1000 MG PO ×2 (08:06→21:53)
[2021-08-15] MEDS: Acetylcysteine 600 MG CAP PO ×4 (08:06→21:53)
[2021-08-15] MEDS: Aspirin E.C. 81 MG TABEC PO (08:06)
[2021-08-15] MEDS: DULoxetine 30 MG CAP 60 MG PO (08:07)
[2021-08-15] MEDS: Enoxaparin 40 MG/0.4 ML SYR SC (08:07)
[2021-08-15] MEDS: Budesonide/Formoterol 80/4.5 6.9 GM 60 PUFF INH IH ×2 (08:07→21:55)
[2021-08-15] MEDS: Cholecalciferol (Vitamin D3) 1,000 UNIT TAB 2000 UNITS PO (08:07)
[2021-08-15] MEDS: Loratidine 10 MG TAB PO (08:08)
[2021-08-15] MEDS: Famotidine 20 MG TAB PO ×2 (08:08→21:54)
[2021-08-15] MEDS: Gabapentin 600 MG TAB 900 MG PO ×3 (08:08→21:54)
[2021-08-15] MEDS: Ipratropium/Albuterol 4 GM 120 PUFF INH IH ×4 (08:08→21:55)
[2021-08-15] MEDS: Lactulose 20 GM/30 ML CUP PO ×2 (08:08→21:54)
[2021-08-15] MEDS: Lactobacillus Acidophilus CAP 1 CAP PO (08:08)
[2021-08-15] MEDS: predniSONE 20 MG TAB 60 MG PO (08:09)
[2021-08-15] MEDS: Polyethylene Glycol 3350 17 GM PACKET PO ×2 (08:09→21:54)
[2021-08-15] MEDS: Spironolactone 25 MG TAB PO (08:11)
[2021-08-15] MEDS: Tiotropium Bromide-Respimat 10 PUFF INH 2 PUFF IH (08:11)
[2021-08-15] MEDS: HYDROmorphone 2 MG TAB 4 MG PO ×3 (08:11→21:56)
[2021-08-15] MEDS: Sennosides/Docusate Sodium TAB 1 TAB PO ×2 (08:11→21:53)
[2021-08-15 08:12] LABS: ALT 294 U/L (14-59); AST 129 U/L (15-37); Albumin 3.3 g/dL (3.4-5.0); Alkaline Phosphatase 90 U/L (46-116); Anion Gap 1.3 mmol/L (3-11); BUN 10 mg/dL (7-18); Bilirubin, Direct 0.1 mg/dL (0.0-0.2); Bilirubin, Total 0.4 mg/dL (0.2-1.0); C-Reactive Protein 1.36 mg/dL (0.0-0.3); CO2 37.7 mmol/L (21.0-32.0); CREATININE 0.6 mg/dL (0.55-1.02); Calcium 7.9 mg/dL (8.5-10.1); Chloride 97 mmol/L (98-107); Glucose 109 mg/dL (74-106); Magnesium 2.3 mg/dL (1.8-2.4); PHOSPHORUS 4.3 mg/dL (2.6-4.7); Potassium 3.5 mmol/L (3.5-5.1); Sodium 136 mmol/L (136-145); Total Protein 6.6 g/dL (6.4-8.2)
[2021-08-15 08:20] LABS: INR 1.1 (0.9-1.1)
[2021-08-15 08:32] LABS: D-Dimer 709 ng/mlFEU (<500)
[2021-08-15 08:39] LABS: Ferritin 516 ng/mL (8-252)
[2021-08-15 09:18] LABS: Procalcitonin < 0.1 ng/mL
[2021-08-15] MEDS: Fluconazole 100 MG TAB PO (09:29)
[2021-08-15] MEDS: Benzonatate 100 MG CAP PO (11:45)
--- NOTE | 2021-08-15 15:55 | W.PM.PROGNOT ---
Date of Service Date of service: 08/15/21 Time of Service: 15:56 Assessment and Plan Assessment and plan (1) Transaminitis: Status: Acute Assessment and plan: Check CPK, d/c fluconazole, remdesivir, and bactrim. Could also be simply due to COVID-19 I am looking into the indication for bactrim. Repeat LFTs in am. (2) Acute exacerbation of chronic obstructive pulmonary disease: Status: Acute Assessment and plan: Due to COVID-19 Stable oxygen requirements (2L at rest, 3L with activity). Continue prednisone 60 mg. (3) COVID-19: Status: Acute Assessment and plan: Agreed that this is likely a trigger for her COPD exacerbation but there is no evidence of COVID-19 pneumonia at this time. Continue prednisone, baricitinib. D/c remdesivir due to possible hepatotoxicity. (4) Thrush, oral: Status: Acute Assessment and plan: rx Nystatin swish/swallow. D/c fluconazole due to worsening transaminitis. (5) Chronic respiratory failure with hypoxia: Status: Chronic Assessment and plan: At baseline at rest (2L); 3L with activity. I will clarify with RT if the baseline O2 requirement is 2-3 L or just 2L. (6) Lumbago with sciatica, right side: Status: Acute Assessment and plan: Continue PO dilaudid. Qualifiers: Chronicity: chronic Back pain laterality: right Qualified Code(s): M54.41 - Lumbago with sciatica, right side; G89.29 - Other chronic pain (7) Restless leg syndrome: Status: Acute Assessment and plan: Continue gabapentin 900 mg 3 times daily and Mirapex to 1 mg nightly. (8) DVT prophylaxis: Status: Acute Assessment and plan: SC enoxaparin (9) Discharge planning issues: Status: Acute Assessment and plan: Full code Possible discharge home tomorrow Would need Home Health RN, PT, OT, RESIDENTIAL MENTAL HEALTH WORKER. Subjective Subjective Interval history since last seen: Ms So states she is not feeling any better. Her throat is a little better, but otherwise she is very achy and still feels short of breath and dizzy. Her O2 requirement at rest is 2L, her O2 requirement with ambulation is 3L. She denies chest pain, nausea. She does not feel ready to go home. Exam Narrative Exam Narrative: Today's exam was performed over the phone due to patient's relative stability and her diagnosis of COVID-19. The patient sounded hoarse, but able to speak in lengthy sentences without feeling short of breath. Objective Last Vital Signs Temp 36.3 C L 08/15/21 08:03 Pulse 78 08/15/21 08:03 Resp 18 08/15/21 08:03 BP 120/71 08/15/21 08:03 Pulse Ox 93 08/15/21 08:03 Laboratory Results - last 24 hr 08/15/21 08/15/21 08/15/21 07:25 07:25 07:25 WBC 7.03 D RBC 4.11 Hgb 13.3 Hct 39.9 MCV 97.1 H MCH 32.4 MCHC 33.3 RDW 12.1 Plt Count 164 MPV 9.8 Immature Gran % 0.3 Neutrophils % 73.7 Lymphocytes % 17.8 Monocytes % 6.1 Eosinophils % 2.0 Basophils % 0.1 Nucleated RBC % 0 Absolute Neutrophils 5.18 Absolute Lymphocytes 1.25 Absolute Monocytes 0.43 Absolute Eosinophils 0.14 Absolute Basophils 0.01 PT INR D-Dimer Sodium 136 Potassium 3.5 Chloride 97 L Carbon Dioxide 37.7 H Anion Gap 1.3 L BUN 10 D Creatinine 0.6 D Estimated GFR/1.73 m2 >= 60.00 Glucose 109 H Calcium 7.9 L Phosphorus 4.3 Magnesium 2.3 Ferritin 516 H Total Bilirubin 0.4 Conjugated Bilirubin 0.1 AST 129 H ALT 294 H Alkaline Phosphatase 90 C-Reactive Protein 1.36 H Total Protein 6.6 Albumin 3.3 L Procalcitonin < 0.1 08/15/21 07:25 WBC RBC Hgb Hct MCV MCH MCHC RDW Plt Count MPV Immature Gran % Neutrophils % Lymphocytes % Monocytes % Eosinophils % Basophils % Nucleated RBC % Absolute Neutrophils Absolute Lymphocytes Absolute Monocytes Absolute Eosinophils Absolute Basophils PT 11.0 INR 1.1 D-Dimer 709 H Sodium Potassium Chloride Carbon Dioxide Anion Gap BUN Creatinine Estimated GFR/1.73 m2 Glucose Calcium Phosphorus Magnesium Ferritin Total Bilirubin Conjugated Bilirubin AST ALT Alkaline Phosphatase C-Reactive Protein Total Protein Albumin Procalcitonin
[2021-08-15] MEDS: Pramipexole 0.5 MG TAB 1 MG PO (17:05)
[2021-08-15] MEDS: Montelukast 10 MG TAB PO (21:53)
[2021-08-15] MEDS: Atorvastatin 20 MG TAB 40 MG PO (21:54)
[2021-08-16] VITALS (9 sets, daily range): BP systolic 112–142; BP diastolic 68–82; PULSE 78–81; RESP 18–20; TEMP 36.4–37; O2SAT 71–95
[2021-08-16] MEDS: HYDROmorphone 2 MG TAB 4 MG PO ×4 (03:59→21:51)
[2021-08-16] MEDS: Nystatin 500000 UNITS/5 ML SUSP 5ML CUP PO ×5 (05:37→21:51)
[2021-08-16 06:43] LABS: Abs Immature Grans 0.02 10^3/uL (0.0-0.06); Absolute Basophil Count 0.01 10^3/uL (0.0-0.2); Absolute Eosinophil Count 0.07 10^3/uL (0.0-0.7); Absolute Monocyte Count 0.49 10^3/uL (0.1-0.8); Absolute Neutrophil Count 5.01 10^3/uL (1.2-6.7); Basophils % 0.1; Eosinophils % 0.9; HCT 41.6 % (36.0-46.0); HGB 13.6 g/dL (11.2-15.7); Immature Grans % 0.3; Lymphocytes % 28.2; MCH 31.7 pg (27.0-33.0); MCHC 32.7 % (32.0-36.0); MPV 9.8 fL (8.0-11.0); Monocytes % 6.3; Neutrophils % 64.2; Nucleated RBC 0 %; Platelet Count 204 10^3/uL (130-400); RBC 4.29 10^6/uL (3.93-5.22); RDW-SD 43.2 fL
[2021-08-16 06:56] LABS: INR 1.8 (0.9-1.1)
[2021-08-16 07:02] LABS: ALT 306 U/L (14-59); AST 112 U/L (15-37); Albumin 3.4 g/dL (3.4-5.0); Alkaline Phosphatase 134 U/L (46-116); Anion Gap 3.5 mmol/L (3-11); BUN 14 mg/dL (7-18); Bilirubin, Direct 0.2 mg/dL (0.0-0.2); Bilirubin, Total 0.4 mg/dL (0.2-1.0); C-Reactive Protein 1.78 mg/dL (0.0-0.3); CO2 35.5 mmol/L (21.0-32.0); CREATININE 0.8 mg/dL (0.55-1.02); Calcium 8.4 mg/dL (8.5-10.1); Chloride 96 mmol/L (98-107); Creatine Kinase 172 U/L (26-192); Glucose 118 mg/dL (74-106); Magnesium 2.3 mg/dL (1.8-2.4); PHOSPHORUS 3.8 mg/dL (2.6-4.7); Potassium 3.4 mmol/L (3.5-5.1); Sodium 135 mmol/L (136-145); Total Protein 6.9 g/dL (6.4-8.2)
[2021-08-16 07:18] LABS: D-Dimer 710 ng/mlFEU (<500)
[2021-08-16 07:30] LABS: Ferritin 471 ng/mL (8-252)
--- NOTE | 2021-08-16 09:08 | CMPROGNOTE_ITS ---
- If Service Date Differs Date of service: 08/16/21 Time of Service: 09:08 Care Management Progress Note S/O: Susy continues to require treatment for covid and remains on isolation. CM was unable to reach her by phone. Per report her LFT's are being closely monitored and her O2 Sat is 95% on 2L NC. CM will continue to follow. A: 61 year old female admitted to [facility] on 08/09/21 for COPD, Covid P: Anticipate Susy will be discharged home via private vehicle vs. EMS when medically cleared by provider. She will need new [facility] services: SN/PT/OT/CLINICAL PSYCHOLOGY TEACHER. She has home O2 at baseline through [facility]. Patient will follow up with community providers and discharge plan of care as prescribed. CM will continue to assess discharge planning needs.
[2021-08-16] MEDS: Tiotropium Bromide-Respimat 10 PUFF INH 2 PUFF IH (09:09)
[2021-08-16] MEDS: Ipratropium/Albuterol 4 GM 120 PUFF INH IH ×4 (09:10→20:19)
[2021-08-16] MEDS: Budesonide/Formoterol 80/4.5 6.9 GM 60 PUFF INH IH ×2 (09:11→20:20)
[2021-08-16] MEDS: Acetylcysteine 600 MG CAP PO ×4 (09:11→20:17)
[2021-08-16] MEDS: Aspirin E.C. 81 MG TABEC PO (09:11)
[2021-08-16] MEDS: Ascorbic Acid 500 MG TAB 1000 MG PO ×2 (09:11→20:17)
[2021-08-16] MEDS: DULoxetine 30 MG CAP 60 MG PO (09:12)
[2021-08-16] MEDS: Cholecalciferol (Vitamin D3) 1,000 UNIT TAB 2000 UNITS PO (09:12)
[2021-08-16] MEDS: Lactulose 20 GM/30 ML CUP PO ×2 (09:13→20:19)
[2021-08-16] MEDS: Loratidine 10 MG TAB PO (09:13)
[2021-08-16] MEDS: Enoxaparin 40 MG/0.4 ML SYR SC (09:13)
[2021-08-16] MEDS: Potassium Chloride 20 MEQ TABCR 40 MEQ PO (09:13)
[2021-08-16] MEDS: Famotidine 20 MG TAB PO ×2 (09:13→20:17)
[2021-08-16] MEDS: Lactobacillus Acidophilus CAP 1 CAP PO (09:13)
[2021-08-16] MEDS: Gabapentin 600 MG TAB 900 MG PO ×3 (09:13→20:17)
[2021-08-16] MEDS: predniSONE 20 MG TAB 60 MG PO (09:14)
[2021-08-16] MEDS: Spironolactone 25 MG TAB PO (09:14)
--- NOTE | 2021-08-16 15:21 | W.NUTRFU ---
Date of service: 08/16/21 Time of Service: 15:21 Nutrition Note NOTE: Weight fairly stable. Excellent PO intake on low sodium diet. Will continue to follow progress. Time Spent in Nutritional Counseling and Treatment: 0
--- NOTE | 2021-08-16 15:45 | RT.EKG_ITS ---
APPROVED REPORT Exam: Resting ECG Reason for Exam: chest pain Patient Location: I HR:76 bpm ECG Measurements Heart Rate 76 AXIS AL 167 P 59 QRSd 97 QRS 58 QT 393 T 60 QTc 443 Conclusion Sinus rhythm...normal P axis, V-rate 60- 99 Anteroseptal infarct, age indeterminate...Q >35mS, T neg, V1-V2
--- NOTE | 2021-08-16 15:46 | PGE_ITS ---
Date of Service Date of service: 08/16/21 Time of Service: 15:46 Assessment and Plan Assessment and plan (1) Transaminitis: Status: Acute Assessment and plan: Not better. Continue to hold hepatotoxic medications. Could also be simply due to COVID-19 Continue to trend LFTs. The patient does follow at [facility] for liver disease. (2) Acute exacerbation of chronic obstructive pulmonary disease: Status: Acute Assessment and plan: Due to COVID-19 Stable oxygen requirements (2L at rest, 3L with activity). Continue prednisone 60 mg. (3) COVID-19: Status: Acute Assessment and plan: Agreed that this is likely a trigger for her COPD exacerbation but there is no evidence of COVID-19 pneumonia at this time. Continue prednisone, baricitinib. (4) Chest pain: Status: Acute Assessment and plan: Check EKG, troponin, place on tele. (5) Thrush, oral: Status: Acute Assessment and plan: Continue Nystatin swish/swallow. (6) Chronic respiratory failure with hypoxia: Status: Chronic Assessment and plan: At baseline (2L). (7) Lumbago with sciatica, right side: Status: Acute Assessment and plan: Continue PO dilaudid. Qualifiers: Chronicity: chronic Back pain laterality: right Qualified Code(s): M54.41 - Lumbago with sciatica, right side; G89.29 - Other chronic pain (8) Restless leg syndrome: Status: Acute Assessment and plan: Continue gabapentin 900 mg 3 times daily and Mirapex to 1 mg nightly. (9) DVT prophylaxis: Status: Acute Assessment and plan: SC enoxaparin (10) Discharge planning issues: Status: Acute Assessment and plan: Full code Possible discharge home tomorrow Would need Home Health RN, PT, OT, HISTORIOGRAPHY PROFESSOR. Subjective Subjective Interval history since last seen: Feels cold. Covered in blankets. She feels like she was hit by sludgehammers and left for . By this, she means she is in pain - headache is the worst part of it, but she is also having pain on the the right side of the abdomen. This started hurting after her BM today - mid/lower abdomen. Not constipated. Stools are Runny. Nauseated. Ate a few bites. No appetite. Eating soft foods. Breathing is normal right now, which really sucks. Chest pains in the left side since a few days ago. No heart burn. Not having chest pain right now. Had it earlier today when she was crying. No IV access currently. Exam Narrative Exam Narrative: Today's exam was performed over the phone due to patient's relative stability and her diagnosis of COVID-19. The patient sounded less hoarse, spoke in long sentences without dyspnea/tachypnea. Objective Last Vital Signs Temp 36.4 C L 08/16/21 09:04 Pulse 80 08/16/21 09:04 Resp 20 08/16/21 09:04 BP 138/78 08/16/21 09:04 Pulse Ox 95 08/16/21 12:13 Laboratory Results - last 24 hr 08/16/21 08/16/21 08/16/21 06:15 06:15 06:15 WBC 7.80 RBC 4.29 Hgb 13.6 Hct 41.6 MCV 97.0 H MCH 31.7 MCHC 32.7 RDW 12.0 Plt Count 204 MPV 9.8 Immature Gran % 0.3 Neutrophils % 64.2 Lymphocytes % 28.2 Monocytes % 6.3 Eosinophils % 0.9 Basophils % 0.1 Nucleated RBC % 0 Absolute Neutrophils 5.01 Absolute Lymphocytes 2.20 Absolute Monocytes 0.49 Absolute Eosinophils 0.07 Absolute Basophils 0.01 PT 18.0 H D INR 1.8 H D D-Dimer 710 H Sodium 135 L Potassium 3.4 L Chloride 96 L Carbon Dioxide 35.5 H Anion Gap 3.5 BUN 14 Creatinine 0.8 Estimated GFR/1.73 m2 >= 60.00 Glucose 118 H Calcium 8.4 L Phosphorus 3.8 Magnesium 2.3 Ferritin 471 H Total Bilirubin 0.4 Conjugated Bilirubin 0.2 AST 112 H ALT 306 H Alkaline Phosphatase 134 H Creatine Kinase 172 C-Reactive Protein 1.78 H Total Protein 6.9 Albumin 3.4
[2021-08-16] MEDS: Ondansetron O.D.T. 4 MG TABEF PO (16:40)
[2021-08-16] MEDS: Pramipexole 0.5 MG TAB 1 MG PO (16:41)
[2021-08-16 17:15] LABS: Troponin I < 50 ng/L (<or=60)
[2021-08-16] MEDS: Sennosides/Docusate Sodium TAB 1 TAB PO (20:17)
[2021-08-16] MEDS: Atorvastatin 20 MG TAB 40 MG PO (20:17)
[2021-08-16] MEDS: Polyethylene Glycol 3350 17 GM PACKET PO (20:19)
[2021-08-16] MEDS: Montelukast 10 MG TAB PO (21:50)
[2021-08-16] MEDS: Zolpidem 5 MG TAB PO (21:51)
[2021-08-17] VITALS (9 sets, daily range): BP systolic 98–139; BP diastolic 49–93; PULSE 73–86; RESP 18–24; TEMP 35.4–36.8; O2SAT 85–96
--- NOTE | 2021-08-17 01:19 | NUR.NOTE ---
Seen patient at 1999 meds given, VS taken, attended needs, assisted to toilet and monitored her output. Noticed that oxygen tubing was knotted near the nasal cannulla, deknotted and adjusted oxygen settings to 3LPM via NC to maintain sats above 90%. at 2144, went in to room to give night time meds, assisted to toilet and adjusted telemetry and oxygen tubing and nasal cannula which is always shoved by pt outside of nares. ainstructed pt to avoid playing with the nasal cannula since it will help in getting her better by giving enough oxygenation to her lungs and body, pt understood. Received a call from ICU around 1240 am that sats were low, went inside room to adjust telemetry and reapplied leads, put back oxygen to nose and instructed not to ove the nasal cannulla out of the nares, readjusted the finger probe and verified with the sats and telemetry reading on nurse's station screen, changed gown and readjusted telemetry and all tubing for oxygen and call harris, sats verified and pt able to sleep on bed. ICU again called immediately I came out from room and YOUNG Chaney checked on pt readjusted oxygen tubings, changed finger probe and verified sats on nurses station screen. At 140 am Michaelle went to see pt inside room to change tewle leads and fix nasal cannulla and finger probe.
--- NOTE | 2021-08-17 01:40 | NUR.NOTE ---
0100 went in d/t low saturations. Found oxygen on the patient chin. Reminded her to keep it in her nose. O2 sat probe replaced. Nursing Note:
[2021-08-17] MEDS: Ondansetron O.D.T. 4 MG TABEF PO ×2 (02:07→13:57)
[2021-08-17] MEDS: HYDROmorphone 2 MG TAB 4 MG PO ×4 (02:07→20:21)
[2021-08-17] MEDS: Nystatin 500000 UNITS/5 ML SUSP 5ML CUP PO ×4 (05:19→20:17)
[2021-08-17 07:17] LABS: Abs Immature Grans 0.04 10^3/uL (0.0-0.06); Absolute Basophil Count 0.02 10^3/uL (0.0-0.2); Absolute Eosinophil Count 0.05 10^3/uL (0.0-0.7); Absolute Monocyte Count 0.53 10^3/uL (0.1-0.8); Absolute Neutrophil Count 8.44 10^3/uL (1.2-6.7); Basophils % 0.2; Eosinophils % 0.4; HCT 41.8 % (36.0-46.0); HGB 13.4 g/dL (11.2-15.7); Immature Grans % 0.4; Lymphocytes % 19.6; MCH 32.1 pg (27.0-33.0); MCHC 32.1 % (32.0-36.0); MCV 100.2 fL (80-95); MPV 9.6 fL (8.0-11.0); Monocytes % 4.7; Neutrophils % 74.7; Nucleated RBC 0 %; Platelet Count 249 10^3/uL (130-400); RBC 4.17 10^6/uL (3.93-5.22); RDW-SD 44.5 fL
[2021-08-17 07:22] LABS: Absolute Lymphocyte Count 2.21 10^3/uL (1.2-3.4)
[2021-08-17 07:31] LABS: Prothrombin Time 10.5 sec (9.3-11.0)
[2021-08-17 07:36] LABS: ALT 228 U/L (14-59); AST 66 U/L (15-37); Albumin 3.4 g/dL (3.4-5.0); Alkaline Phosphatase 119 U/L (46-116); Anion Gap 4.1 mmol/L (3-11); BUN 19 mg/dL (7-18); Bilirubin, Direct 0.1 mg/dL (0.0-0.2); Bilirubin, Total 0.3 mg/dL (0.2-1.0); C-Reactive Protein 1.05 mg/dL (0.0-0.3); CO2 35.9 mmol/L (21.0-32.0); CREATININE 0.8 mg/dL (0.55-1.02); Calcium 8.4 mg/dL (8.5-10.1); Chloride 95 mmol/L (98-107); Glucose 115 mg/dL (74-106); Magnesium 2.2 mg/dL (1.8-2.4); Sodium 135 mmol/L (136-145); Total Protein 7.1 g/dL (6.4-8.2)
[2021-08-17 07:56] LABS: D-Dimer 530 ng/mlFEU (<500)
[2021-08-17 08:00] LABS: Ferritin 303 ng/mL (8-252)
[2021-08-17 08:07] LABS: Procalcitonin < 0.1 ng/mL
[2021-08-17] MEDS: Budesonide/Formoterol 80/4.5 6.9 GM 60 PUFF INH IH ×2 (08:07→20:26)
[2021-08-17] MEDS: Tiotropium Bromide-Respimat 10 PUFF INH 2 PUFF IH (08:08)
[2021-08-17] MEDS: Ipratropium/Albuterol 4 GM 120 PUFF INH IH ×4 (08:08→20:22)
[2021-08-17] MEDS: Lactulose 20 GM/30 ML CUP PO ×2 (08:16→20:19)
[2021-08-17] MEDS: Acetylcysteine 600 MG CAP PO ×4 (08:17→20:19)
[2021-08-17] MEDS: Aspirin E.C. 81 MG TABEC PO (08:17)
[2021-08-17] MEDS: Enoxaparin 40 MG/0.4 ML SYR SC (08:17)
[2021-08-17] MEDS: Benzonatate 100 MG CAP PO (08:17)
[2021-08-17] MEDS: Loratidine 10 MG TAB PO (08:18)
[2021-08-17] MEDS: Gabapentin 600 MG TAB 900 MG PO ×3 (08:18→20:17)
[2021-08-17] MEDS: Famotidine 20 MG TAB PO ×2 (08:19→20:19)
[2021-08-17] MEDS: Lactobacillus Acidophilus CAP 1 CAP PO (08:19)
[2021-08-17] MEDS: Cholecalciferol (Vitamin D3) 1,000 UNIT TAB 2000 UNITS PO (08:19)
[2021-08-17] MEDS: DULoxetine 30 MG CAP 60 MG PO (08:19)
[2021-08-17] MEDS: Ascorbic Acid 500 MG TAB 1000 MG PO ×2 (08:20→20:18)
[2021-08-17] MEDS: Spironolactone 25 MG TAB PO (08:20)
[2021-08-17] MEDS: predniSONE 20 MG TAB 60 MG PO (08:20)
--- NOTE | 2021-08-17 12:54 | NUR.NOTE ---
Nursing Note: Pt c/o right side abd pain, N/V, notified charge nurse to please tell MD. also noted left breast red and yeasty smelling.
--- NOTE | 2021-08-17 14:51 | W.PM.PROGNOT ---
Date of Service Date of service: 08/17/21 Time of Service: 14:55 Assessment and Plan Assessment and plan (1) Acute exacerbation of chronic obstructive pulmonary disease: Status: Acute Assessment and plan: Due to COVID-19 Desaturating today on her baseline O2 at rest, so possibly worse. I do note that she has not received her prn albuterol since 08/14, so this will be given. Encouarge IS/acapella. Add mucolytics. Continue prednisone 60 mg daily. (2) COVID-19: Status: Acute Assessment and plan: Agreed that this is likely a trigger for her COPD exacerbation but there is no evidence of COVID-19 pneumonia at this time. Continue prednisone, baricitinib. (3) Transaminitis: Status: Acute Assessment and plan: Improved. Continue to hold hepatotoxic medications, including remdesivir. Could also be simply due to COVID-19. Continue to trend LFTs. The patient does follow at [facility] for liver disease. (4) Chest pain: Status: Resolved Assessment and plan: No ACS. D/c tele. (5) Thrush, oral: Status: Acute Assessment and plan: Continue Nystatin swish/swallow. (6) Chronic respiratory failure with hypoxia: Status: Chronic Assessment and plan: As above Currently with acute hypoxic component. (7) Lumbago with sciatica, right side: Status: Acute Assessment and plan: Continue PO dilaudid. Qualifiers: Chronicity: chronic Back pain laterality: right Qualified Code(s): M54.41 - Lumbago with sciatica, right side; G89.29 - Other chronic pain (8) Restless leg syndrome: Status: Acute Assessment and plan: Continue gabapentin 900 mg 3 times daily and Mirapex to 1 mg nightly. Add baclofen for muscle spasms. (9) DVT prophylaxis: Status: Acute Assessment and plan: SC enoxaparin (10) Discharge planning issues: Status: Acute Assessment and plan: Full code Possible discharge home tomorrow Would need Home Health RN, PT, OT, GAME DESIGN INSTRUCTOR. Subjective Subjective Interval history since last seen: Ms So has several complaints today. She is complaining of RLQ pain which gets better when she passes flatus. She states she had a BM today. She agrees to take something for constipation. She also reports cramping in her right foot. She has been nauseated today, but denies nausea currently. Cannot taste/smell. Requests a snack and a cup of coffee. Has been drinking a lot of fluids. Was witnessed trying to induce vomiting by putting her hand into her mouth/throat. The patient states she was doing that to make it easier to bring up secretions which felt like they were thick and stuck in her throat. Denies dizziness, chest pain. Was desaturating on her baseline 2L of O2 to 85% at rest. Was brought up to 3L - 94% at rest. Did not feel ready to go home today. Exam Narrative Exam Narrative: General: Obese female who looks a little better today than the last time I saw her, A&Ox3, sounds less hoarse, demonstrating to me how she put her hand into her mouth HEENT: EOMI, MMM Heart: RRR Lungs: expiratory wheezes on auscultation B Abdomen: soft, + hypoactive bowel sounds, tender in RLQ Extremities: no edema BLE's Objective Last Vital Signs Temp 35.4 C L 08/17/21 08:32 Pulse 75 08/17/21 08:32 Resp 20 08/17/21 08:32 BP 139/93 H 08/17/21 08:32 Pulse Ox 85 L 08/17/21 08:38 Laboratory Results - last 24 hr 08/16/21 08/17/21 08/17/21 16:50 07:00 07:00 WBC RBC Hgb Hct MCV MCH MCHC RDW Plt Count MPV Immature Gran % Neutrophils % Lymphocytes % Monocytes % Eosinophils % Basophils % Nucleated RBC % Absolute Neutrophils Absolute Lymphocytes Absolute Monocytes Absolute Eosinophils Absolute Basophils PT INR D-Dimer Sodium 135 L Potassium 4.0 Chloride 95 L Carbon Dioxide 35.9 H Anion Gap 4.1 BUN 19 H Creatinine 0.8 Estimated GFR/1.73 m2 >= 60.00 Glucose 115 H Calcium 8.4 L Magnesium 2.2 Ferritin 303 H Total Bilirubin 0.3 Conjugated Bilirubin 0.1 AST 66 H ALT 228 H Alkaline Phosphatase 119 H Troponin I < 50 C-Reactive Protein 1.05 H Total Protein 7.1 Albumin 3.4 Procalcitonin < 0.1 08/17/21 08/17/21 07:00 07:00 WBC 11.30 H D RBC 4.17 Hgb 13.4 Hct 41.8 MCV 100.2 H MCH 32.1 MCHC 32.1 RDW 12.0 Plt Count 249 MPV 9.6 Immature Gran % 0.4 Neutrophils % 74.7 Lymphocytes % 19.6 Monocytes % 4.7 Eosinophils % 0.4 Basophils % 0.2 Nucleated RBC % 0 Absolute Neutrophils 8.44 H Absolute Lymphocytes 2.21 Absolute Monocytes 0.53 Absolute Eosinophils 0.05 Absolute Basophils 0.02 PT 10.5 D INR 1.0 D D-Dimer 530 H Sodium Potassium Chloride Carbon Dioxide Anion Gap BUN Creatinine Estimated GFR/1.73 m2 Glucose Calcium Magnesium Ferritin Total Bilirubin Conjugated Bilirubin AST ALT Alkaline Phosphatase Troponin I C-Reactive Protein Total Protein Albumin Procalcitonin
--- NOTE | 2021-08-17 15:05 | PDOC.CMPRO ---
- If Service Date Differs Date of service: 08/17/21 Time of Service: 15:05 Care Management Progress Note S/O: Susy continues to require treatment for COPD exacerbation and covid. She remains on isolation. She reported that she has thick phlegm in her throat and finds it helpful to raise it herself by gagging herself with her fingers and vomiting. Provider is aware and Susy was started on mucinex. She has good fluid intake. Per provider notes, possible discharge home tomorrow with [facility] RN, PT, OT, BEARING MACHINE OPERATOR. CM will continue to follow. A: 61 year old female admitted to [facility] on 08/09/21 for COPD, Covid P: Anticipate Susy will be discharged home via private vehicle vs. EMS when medically cleared by provider. She will need new [facility] services: SN/PT/OT/BEARING MACHINE OPERATOR. She has home O2 at baseline through [facility]. Patient will follow up with community providers and discharge plan of care as prescribed. CM will continue to assess discharge planning needs.
[2021-08-17] MEDS: Bisacodyl 5 MG TABEC 10 MG PO (15:37)
[2021-08-17] MEDS: Pramipexole 0.5 MG TAB 1 MG PO (17:48)
[2021-08-17] MEDS: Sennosides/Docusate Sodium TAB 1 TAB PO (20:17)
[2021-08-17] MEDS: guaiFENesin 600 MG TABCR PO (20:18)
[2021-08-17] MEDS: Atorvastatin 20 MG TAB 40 MG PO (20:19)
[2021-08-17] MEDS: Polyethylene Glycol 3350 17 GM PACKET PO (20:19)
[2021-08-17] MEDS: Montelukast 10 MG TAB PO (20:19)
[2021-08-17] MEDS: Zolpidem 5 MG TAB PO (20:21)
[2021-08-17] MEDS: Nystatin POWDER 60 GM JAR TP (20:22)
[2021-08-17] MEDS: Albuterol HFA 8 GM 60 PUFF INH IH (20:23)
--- NOTE | 2021-08-17 21:51 | NUR.NOTE ---
Nursing Note: encouraged Pt to take off brief for night redness noted in abd folds and brief appeared to be ill fitting. Pt needed education about keeping O2 on Pt SAT was in high 80's on room air when this nurse entered room. This nurse slipped on floor in Pt room and Pt stated that she too had slipped in the same location and that other nurses had attempted to clean area of spill. this nurse had house keeping called and mopped the floor. education about safety was given to Pt.
[2021-08-18] MEDS: HYDROmorphone 2 MG TAB 4 MG PO ×4 (02:01→21:23)
[2021-08-18] MEDS: Ondansetron O.D.T. 4 MG TABEF PO ×2 (02:34→08:05)
[2021-08-18] MEDS: Nystatin 500000 UNITS/5 ML SUSP 5ML CUP PO ×5 (05:43→21:22)
--- NOTE | 2021-08-18 06:17 | NUR.NOTE ---
Nursing Note: This nurse in with Pt and Pt stretched out leg and cried out in Pain. This nurse massaged leg and called to charge nurse. Pt assisted to Commode and bed linen changed. Pt appeared to be in less pain and was able to move both legs without difficulty.
[2021-08-18 07:20] VITALS: BP 103/56; PULSE 78; RESP 20; TEMP 36.4; O2SAT 93
[2021-08-18 07:28] LABS: Abs Immature Grans 0.06 10^3/uL (0.0-0.06); Absolute Basophil Count 0.01 10^3/uL (0.0-0.2); Absolute Eosinophil Count 0.06 10^3/uL (0.0-0.7); Absolute Lymphocyte Count 2.48 10^3/uL (1.2-3.4); Absolute Monocyte Count 0.57 10^3/uL (0.1-0.8); Absolute Neutrophil Count 8.85 10^3/uL (1.2-6.7); Basophils % 0.1; Eosinophils % 0.5; HCT 41.1 % (36.0-46.0); HGB 12.9 g/dL (11.2-15.7); Immature Grans % 0.5; Lymphocytes % 20.6; MCH 31.6 pg (27.0-33.0); MCHC 31.4 % (32.0-36.0); MCV 100.7 fL (80-95); MPV 9.7 fL (8.0-11.0); Monocytes % 4.7; Neutrophils % 73.6; Nucleated RBC 0 %; Platelet Count 257 10^3/uL (130-400); RBC 4.08 10^6/uL (3.93-5.22); RDW 11.9 % (11.7-14.6); RDW-SD 44.1 fL; WBC 12.03 10^3/uL (4.4-10.8)
[2021-08-18 07:40] LABS: ALT 166 U/L (14-59); AST 46 U/L (15-37); Albumin 3.3 g/dL (3.4-5.0); Alkaline Phosphatase 104 U/L (46-116); Anion Gap 2.5 mmol/L (3-11); BUN 13 mg/dL (7-18); Bilirubin, Direct 0.1 mg/dL (0.0-0.2); Bilirubin, Total 0.4 mg/dL (0.2-1.0); C-Reactive Protein 0.74 mg/dL (0.0-0.3); CO2 37.5 mmol/L (21.0-32.0); CREATININE 0.9 mg/dL (0.55-1.02); Calcium 8.5 mg/dL (8.5-10.1); Chloride 96 mmol/L (98-107); Glucose 88 mg/dL (74-106); Magnesium 2.1 mg/dL (1.8-2.4); PHOSPHORUS 3.9 mg/dL (2.6-4.7); Potassium 3.7 mmol/L (3.5-5.1); Sodium 136 mmol/L (136-145); Total Protein 6.9 g/dL (6.4-8.2)
[2021-08-18] MEDS: Nystatin POWDER 60 GM JAR TP ×2 (07:50→21:24)
[2021-08-18] MEDS: Ipratropium/Albuterol 4 GM 120 PUFF INH IH ×4 (07:50→21:25)
[2021-08-18] MEDS: Tiotropium Bromide-Respimat 10 PUFF INH 2 PUFF IH (07:50)
[2021-08-18] MEDS: Budesonide/Formoterol 80/4.5 6.9 GM 60 PUFF INH IH ×2 (07:51→21:25)
[2021-08-18] MEDS: Lactulose 20 GM/30 ML CUP PO ×2 (07:51→21:22)
[2021-08-18] MEDS: Polyethylene Glycol 3350 17 GM PACKET PO ×2 (07:51→21:25)
[2021-08-18] MEDS: Spironolactone 25 MG TAB PO (07:52)
[2021-08-18] MEDS: Ascorbic Acid 500 MG TAB 1000 MG PO ×2 (07:52→21:23)
[2021-08-18] MEDS: Lactobacillus Acidophilus CAP 1 CAP PO (07:52)
[2021-08-18] MEDS: guaiFENesin 600 MG TABCR PO ×2 (07:52→21:23)
[2021-08-18] MEDS: Sennosides/Docusate Sodium TAB 1 TAB PO ×2 (07:53→21:23)
[2021-08-18] MEDS: Famotidine 20 MG TAB PO ×2 (07:53→21:23)
[2021-08-18] MEDS: Enoxaparin 40 MG/0.4 ML SYR SC (07:53)
[2021-08-18] MEDS: Aspirin E.C. 81 MG TABEC PO (07:53)
[2021-08-18] MEDS: predniSONE 20 MG TAB 60 MG PO (07:53)
[2021-08-18] MEDS: Loratidine 10 MG TAB PO (07:53)
[2021-08-18] MEDS: Gabapentin 600 MG TAB 900 MG PO ×3 (07:54→21:24)
[2021-08-18] MEDS: Acetylcysteine 600 MG CAP PO ×4 (07:54→21:23)
[2021-08-18] MEDS: Cholecalciferol (Vitamin D3) 1,000 UNIT TAB 2000 UNITS PO (07:54)
[2021-08-18] MEDS: DULoxetine 30 MG CAP 60 MG PO (07:54)
[2021-08-18 08:02] LABS: D-Dimer 511 ng/mlFEU (<500)
--- NOTE | 2021-08-18 10:30 | RESPIRATORY ---
I walked the patient to the bathroom on 2 L NC. While the patient was on the toilet she turned around to wipe and then slid off the toilet causing no harm. I witnessed this and it was not a fall. I then helped her up and we walked back to the bed, then to the door, and back to the bed with no issues or any complaints. Nursing informed me this was not the first time she has slid onto the floor from the toilet. I will retunr to do a formal O2 walk later in the day after the nurse situates her.
--- NOTE | 2021-08-18 10:52 | NUR.NOTE ---
Nursing Note: Patient told nursing that she slipped in the bathroom in the bathroom this morning. Rt had told nursing just prior. That he watched the patient intentionally sit on the floor in the bathroom
--- NOTE | 2021-08-18 11:21 | CMPROGNOTE_ITS ---
- If Service Date Differs Date of service: 08/18/21 Time of Service: 11:21 Care Management Progress Note S/O: Susy remains on covid precautions. She is planning on discharging home tomorrow with [facility] RN, PT, OT, PUMP TENDER. notified [facility]. She is going to ask her daughter Brandi to start charging her portable O2 and bring it to the hospital tomorrow. CM will continue to follow. A: 61 year old female admitted to [facility] on 08/09/21 for COPD, Covid P: Anticipate Susy will be discharged home tomorrow with [facility] SN/PT/OT/PUMP TENDER services. She will transport via private vehicle with her daughter Brandi. Brandi will bring her portable Oxygen concentrator and start charging it tonight. Home oxygen at baseline is through [facility]. Patient will follow up with community providers and discharge plan of care as prescribed.
--- NOTE | 2021-08-18 11:27 | NUR.NOTE ---
Nursing Note: Upon arrival into room TORI introduced self to pT and asked how they were doing. pT reported they had a fall with their RN Oleg. pT stated it wasn't bad I am fine now, no broken bones or nothing TORI spoke with ALEX Dejesus and machine printer was notified.
[2021-08-18 12:42] VITALS: PULSE 90; PULSE 91; RESP 16; RESP 18; O2SAT 87; O2SAT 92
--- NOTE | 2021-08-18 14:22 | NUR.NOTE ---
Nursing Note: Patient was observed on camera applying nystatin powder to the various parts of her body. Medication had not been scanned . Bottle was in room , because patient was covid positive
[2021-08-18 15:09] VITALS: BP 108/50; PULSE 81; RESP 24; TEMP 35.6; O2SAT 91
--- NOTE | 2021-08-18 15:23 | NUR.NOTE ---
Nursing Note: Patient made the statement to nursing during afternoon assessment , that her company told her that she needed a shower. Nursing did re orient patient to the fact she is in an isolation room, and that she could not have visitors. She said it was the other nurse.
--- NOTE | 2021-08-18 17:29 | W.PM.PROGNOT ---
Date of Service Date of service: 08/18/21 Time of Service: 15:30 Assessment and Plan Assessment and plan (1) Acute exacerbation of chronic obstructive pulmonary disease: Status: Acute Assessment and plan: Due to COVID-19 Nearing D/c Encouarge IS/acapella. Continue mucolytics. Continue prednisone 60 mg daily. Steroid taper sent to her pharmacy. (2) COVID-19: Status: Acute Assessment and plan: Agree that this is likely a trigger for her COPD exacerbation but there is no evidence of COVID-19 pneumonia at this time. Continue prednisone, baricitinib. (3) Transaminitis: Status: Acute Assessment and plan: Improved. Continue to hold hepatotoxic medications, including remdesivir. Could also be simply due to COVID-19. Continue to trend LFTs. The patient does follow at [facility] for liver disease. (4) Chest pain: Status: Resolved Assessment and plan: No ACS. No longer on tele (5) Thrush, oral: Status: Acute Assessment and plan: Continue Nystatin swish/swallow. (6) Chronic respiratory failure with hypoxia: Status: Chronic Assessment and plan: As above Currently with acute hypoxic component, which is modest - and perhaps is her actual baseline. Planning to discharge home with 2L at rest and 3L of O2 with activity. (7) Lumbago with sciatica, right side: Status: Acute Assessment and plan: Continue PO dilaudid. Qualifiers: Chronicity: chronic Back pain laterality: right Qualified Code(s): M54.41 - Lumbago with sciatica, right side; G89.29 - Other chronic pain (8) Restless leg syndrome: Status: Acute Assessment and plan: Continue gabapentin 900 mg 3 times daily and Mirapex to 1 mg nightly. Continue baclofen for muscle spasms. (9) DVT prophylaxis: Status: Acute Assessment and plan: SC enoxaparin (10) Discharge planning issues: Status: Acute Assessment and plan: Full code Discharge home tomorrow. Would need Home Health RN, PT, OT, DIRECTOR OF OUTREACH. Subjective Subjective Interval history since last seen: Ms So states that she is feeling shaky. Her stomach feels yucky, but zofran is helping. She states she has been passing a lot of gas and that it has been helping her R-sided abdominal pain. Her throat feels better. Her PO intake has been poor due to not having senses of taste or smell. Denies chest pain. Did well with her exercise oximetry today (2L at rest, 3L with activity). Agreeable to go home tomorrow. Requests that we remember to send her pain medication prescription in. I advised her that it would only be a 3 day prescription. Exam Narrative Exam Narrative: Our visit today happened over the phone. Ms So sounded less hoarse, did not appear dyspneic/tachypneic, and had her baseline speech content. Objective Last Vital Signs Temp 35.6 C L 08/18/21 15:09 Pulse 81 08/18/21 15:09 Resp 24 08/18/21 15:09 BP 108/50 L 08/18/21 15:09 Pulse Ox 91 L 08/18/21 15:09 Laboratory Results - last 24 hr 08/18/21 08/18/21 08/18/21 06:40 06:40 06:40 WBC 12.03 H RBC 4.08 Hgb 12.9 Hct 41.1 MCV 100.7 H MCH 31.6 MCHC 31.4 L RDW 11.9 Plt Count 257 MPV 9.7 Immature Gran % 0.5 Neutrophils % 73.6 Lymphocytes % 20.6 Monocytes % 4.7 Eosinophils % 0.5 Basophils % 0.1 Nucleated RBC % 0 Absolute Neutrophils 8.85 H Absolute Lymphocytes 2.48 Absolute Monocytes 0.57 Absolute Eosinophils 0.06 Absolute Basophils 0.01 D-Dimer 511 H Sodium 136 Potassium 3.7 Chloride 96 L Carbon Dioxide 37.5 H Anion Gap 2.5 L BUN 13 D Creatinine 0.9 Estimated GFR/1.73 m2 >= 60.00 Glucose 88 Calcium 8.5 Phosphorus 3.9 Magnesium 2.1 Total Bilirubin 0.4 Conjugated Bilirubin 0.1 AST 46 H ALT 166 H Alkaline Phosphatase 104 C-Reactive Protein 0.74 H Total Protein 6.9 Albumin 3.3 L
[2021-08-18] MEDS: Pramipexole 0.5 MG TAB 1 MG PO (17:45)
[2021-08-18] MEDS: Zolpidem 5 MG TAB PO (21:22)
[2021-08-18] MEDS: Montelukast 10 MG TAB PO (21:23)
[2021-08-18] MEDS: Baclofen 10 MG TAB PO (21:23)
[2021-08-18] MEDS: Atorvastatin 20 MG TAB 40 MG PO (21:24)
[2021-08-18] MEDS: Albuterol HFA 8 GM 60 PUFF INH IH (21:25)
[2021-08-18 21:29] VITALS: BP 129/75; PULSE 78; RESP 20; TEMP 36.2; O2SAT 92
[2021-08-19] MEDS: HYDROmorphone 2 MG TAB 4 MG PO ×2 (05:49→13:38)
[2021-08-19] MEDS: Baclofen 10 MG TAB PO (05:49)
[2021-08-19] MEDS: Nystatin 500000 UNITS/5 ML SUSP 5ML CUP PO ×2 (05:49→13:14)
[2021-08-19 05:52] VITALS: BP 108/74; PULSE 80; RESP 18; TEMP 37.2; O2SAT 91
[2021-08-19 07:51] VITALS: BP 109/63; PULSE 77; RESP 18; TEMP 36.9; O2SAT 97
[2021-08-19] MEDS: Spironolactone 25 MG TAB PO (08:09)
[2021-08-19] MEDS: Polyethylene Glycol 3350 17 GM PACKET PO (08:09)
[2021-08-19] MEDS: Lactulose 20 GM/30 ML CUP PO (08:09)
[2021-08-19] MEDS: Enoxaparin 40 MG/0.4 ML SYR SC (08:09)
[2021-08-19] MEDS: Gabapentin 600 MG TAB 900 MG PO ×2 (08:10→13:39)
[2021-08-19] MEDS: Ascorbic Acid 500 MG TAB 1000 MG PO (08:10)
[2021-08-19] MEDS: Lactobacillus Acidophilus CAP 1 CAP PO (08:10)
[2021-08-19] MEDS: Aspirin E.C. 81 MG TABEC PO (08:10)
[2021-08-19] MEDS: Cholecalciferol (Vitamin D3) 1,000 UNIT TAB 2000 UNITS PO (08:10)
[2021-08-19] MEDS: guaiFENesin 600 MG TABCR PO (08:10)
[2021-08-19] MEDS: Sennosides/Docusate Sodium TAB 1 TAB PO (08:11)
[2021-08-19] MEDS: Famotidine 20 MG TAB PO (08:11)
[2021-08-19] MEDS: DULoxetine 30 MG CAP 60 MG PO (08:11)
[2021-08-19] MEDS: predniSONE 20 MG TAB 60 MG PO (08:11)
[2021-08-19] MEDS: Acetylcysteine 600 MG CAP PO ×2 (08:11→13:14)
[2021-08-19] MEDS: Loratidine 10 MG TAB PO (08:11)
[2021-08-19] MEDS: Tiotropium Bromide-Respimat 10 PUFF INH 2 PUFF IH (08:11)
[2021-08-19] MEDS: Albuterol HFA 8 GM 60 PUFF INH IH (08:12)
[2021-08-19] MEDS: Ipratropium/Albuterol 4 GM 120 PUFF INH IH ×2 (08:12→12:51)
[2021-08-19] MEDS: Nystatin POWDER 60 GM JAR TP ×2 (08:12→13:40)
[2021-08-19] MEDS: Budesonide/Formoterol 80/4.5 6.9 GM 60 PUFF INH IH (08:12)
--- NOTE | 2021-08-19 14:50 | W.PM.DS.N ---
Date of service: 08/19/21 Time of Service: 14:50 DS: Diagnosis Discharge Diagnosis (1) COVID-19: Status: Acute (2) Acute exacerbation of chronic obstructive pulmonary disease: Status: Acute (3) Transaminitis: Status: Acute (4) Chest pain: Status: Resolved Asessment and Plan: Noncardiac. No ACS. (5) Thrush, oral: Status: Acute (6) Chronic respiratory failure with hypoxia: Status: Chronic (7) Lumbago with sciatica, right side: Status: Acute (8) Restless leg syndrome: Status: Acute Discharge Plan Disposition Patient Disposition: HOME W/HOME HEALTH SERVICE Condition: Improving Discharge Details Reason For Visit: COPD, Covid Admit Date/Time: 08/09/21 22:43 Admit Provider: Gage George Attending Provider: Gage George Primary Care Provider: Paulina Alston Hospital Course Hospital Course: Ms So is a 61 year old female with PMHx of O2-dependent COPD, ass well as restrictive lung disease, chronic hypoxic respiratory failure on 2 L of O2 by OR, chronic pain, YURIY, fatty liver, who was admitted to [facility] Hospitalist service on 08/09/21 with acute exacerbation of COPD due to COVID-19 infection. Susy was not previously vaccinated against COVID-19. Her O2 requirements were never truly different from her baseline except for on exertion where she needs 3L of O2 instead of 2L. There were brief periods of time when her resting O2 also required dialing up to 2.5-3L, but overall her oxygenation was close to baseline. She received several days of remdesivir, but developed elevation of her LFTs, which could also have been due to bactrim, which was being used for PJP prophylaxis since she was expected to be on a lengthy taper, or fluconazole which was being used to treat her oral thrush. The LFTs turned around with the discontinuation of these treatments. The patient was reporting significant generalized pain as well as symptoms of restless legs and muscle spasms, which were addressed by increasing her gabapentin, mirapex, adding baclofen, and giving her oral dilaudid. It is felt that these body aches are due to COVID-19 and should be short lived. She is medically stable for discharge home today with 3 days of pain medication. She does need 2L of O2 at rest and 3L of O2 with activity, so her O2 prescription is changing. She is being discharged home with a prednisone taper. She is being discharged home with a referral for home health nursing, PT, OT, and CULINARY ART TEACHER. Care for patient as well as completion of her discharge summary on day of discharge took 45 minutes. Home Meds and New Rx's Prescriptions: New ascorbic acid (vitamin C) [Vitamin C] 500 mg Tablet 1,000 mg PO BID Qty: 120 RF: 0 baclofen 10 mg Tablet 10 mg PO TID PRN PRNQty: 30 RF: 0 budesonide-formoterol [Symbicort] 80-4.5 mcg/actuation Hfa Aerosol Inhaler 2 puff inhalation BID Qty: 10.2 RF: 0 famotidine 20 mg Tablet 20 mg PO BID Qty: 60 RF: 0 cholecalciferol (vitamin D3) 25 mcg (1,000 unit) Tablet 2,000 units PO DAILY Qty: 20 RF: 0 guaifenesin [Mucinex] 600 mg Tablet Extended Release 12hr 600 mg PO BID Qty: 20 RF: 0 Combivent Respimat 20-100 mcg/actuation Mist 1 puff inhalation QID Qty: 4 RF: 0 nystatin 100,000 unit/mL Suspension 500,000 unit PO 5X/DAY Qty: 250 RF: 0 nystatin 100,000 unit/gram Powder 1 applic topical TID Qty: 60 RF: 0 ondansetron 4 mg Tablet,Disintegrating 4 mg PO Q6H PRN PRNQty: 30 RF: 0 polyethylene glycol 3350 17 gram Powder In Packet 17 g PO BID Qty: 60 RF: 0 prednisone 20 mg Tablet See Rx Instructions .ROUTE .COMPLEX Qty: 14 RF: 0 sennosides-docusate sodium [Colace 2-In-1] 8.6-50 mg Tablet 1 tab PO BID Qty: 60 RF: 0 Spiriva Respimat 2.5 mcg/actuation Mist 2 puff inhalation DAILY Qty: 4 RF: 0 hydromorphone [Dilaudid] 2 mg tablet 2 - 4 mg PO Q6H PRN (Reason: pain) Qty: 24 RF: 0 Narcan 4 mg/actuation spray,non-aerosol 4 mg intranasal Q2-3M PRN (Reason: opioid overdose) Qty: 2 RF: 0 Continued albuterol sulfate [Ventolin HFA] 200 PUFF HFA aerosol inhaler 2 puff Inhalation QID PRNRF: 0 omeprazole magnesium [Prilosec OTC] 20 MG tablet,delayed release (DR/EC) 20 mg PO PRN PRNRF: 0 dextromethorphan-guaifenesin 5 ML syrup 10 ml PO Q4H PRN PRNQty: 1 RF: 0 albuterol sulfate 2.5 MG/3 ML solution for nebulization 2.5 mg Inhalation Q4H PRN PRNQty: 30 RF: 0 duloxetine 30 mg capsule,delayed release(DR/EC) 60 mg PO DAILY RF: 0 lactulose 10 gram/15 mL solution 15 ml PO .2-3 TIMES DAILY RF: 0 atorvastatin 20 mg tablet 20 mg PO DAILY RF: 0 aspirin 81 mg Tablet,Delayed Release (Dr/Ec) 81 mg PO DAILY RF: 0 spironolactone 25 mg tablet 25 mg PO DAILY RF: 0 vitamin B complex [Vitamins B Complex] Tablet 1 tab PO HS RF: 0 zolpidem 5 mg tablet 5 mg PO HS PRN PRNRF: 0 loratadine 10 mg tablet 10 mg PO DAILY RF: 0 acidophilus-pectin, citrus 25 million cell -100 mg tablet 1 tab PO DAILY RF: 0 Emgality Pen 120 mg/mL pen injector 120 mg SUBCUT Q30D RF: 0 Oxygen 2l/Min 2 RF: 0 codeine-guaifenesin [Guaifenesin AC] 10-100 mg/5 mL liquid 5 ml PO Q6H PRN (Reason: cough) Qty: 120 RF: 0 acetylcysteine 600 mg capsule 600 mg PO QID RF: 0 benzonatate 100 MG capsule 100 mg PO Q8H PRNRF: 0 montelukast [Singulair] 10 MG tablet 10 mg PO DAILY RF: 0 fluticasone propionate [Flonase Allergy Relief] 9.9 ML spray,suspension 1 spray IN DIRECTED RF: 0 Changed gabapentin 600 mg tablet 900 mg PO TID Qty: 150 RF: 0 pramipexole 0.5 mg tablet 1 mg PO DAILY@1700 Qty: 60 RF: 0 Discontinued Trelegy Ellipta 200-62.5-25 mcg blister with device 1 inh INHALATION DAILY RF: 0 Discharge Instructions Instructions: Prednisone (By mouth), Hydromorphone (By mouth), Tiotropium (By breathing), Budesonide/Formoterol (By breathing), Naloxone (Into the nose), COVID-19 (Coronavirus Disease 2019) (DC) Additional Instructions: Finish your prednisone taper as prescribed. Follow up with your PCP in 1-2 weeks. Follow up with your transit man in 3-4 weeks. Return to the hospital with any fever, bleeding, chest pain, shortness of breath. Return to the hospital if you notice your oxygen saturations on the pulse oxymeter dip below 88 and stay there rather than quickly recover. Do not exceed the recommended dose of dilaudid. You are being prescribed Narcan in case of dilaudid overdose. You can come out of isolation in 2 days. You should get vaccinated in 3 weeks. We strongly recommend an mRNA vaccine for you (either Pfizer or Moderna). Care Plan Goals: Home with home health nursing, PT, OT, CULINARY ART TEACHER. Stand Alone Forms: Nursing Discharge Form Referrals: Paulina Alston [Primary Care Provider] - 09/07/21 9:15 am Activity:: Activity as Tolerated Equipment/Supplies:: O2 2L at rest, 3L active Diet:: Low Sodium Discharge Orders Discharge Orders: Discharge Order (Routine); Ordered 08/19/21 Ordered By: Xenia Magana DS: Summary Time Spent with Patient providing and/or coordinating discharge services: Greater than 30 minutes Status at Discharge Functional status at discharge: independent ambulation Overall status at discharge: patient is progressing back to baseline Mental Status: mental status grossly normal Speech and Movement: speech and movement normal Mood: congruent mood Affect: normal affect Exam Narrative Exam Narrative: Our visit today happened over the phone. Ms So sounded less hoarse, did not appear dyspneic/tachypneic, and had her baseline speech content. Psych Mental Status: mental status grossly normal Speech and Movement: speech and movement normal Mood: congruent mood Affect: normal affect DS: Data Vitals/I&O Vitals and I&O: Vital Signs Temperature 36.9 C 08/19/21 07:51 Temperature Source Tympanic 08/19/21 07:51 Pulse 77 08/19/21 07:51 Pulse Rhythm Regular 08/19/21 08:01 Pulse 94 H 08/10/21 01:08 Respiratory Rate 18 08/19/21 07:51 Respiratory Effort Non-Labored 08/19/21 08:01 Respiratory Depth Normal 08/19/21 08:01 Respiratory Pattern Normal 08/19/21 08:01 Blood Pressure 109/63 08/19/21 07:51 Blood Pressure Mean 102 08/11/21 17:52 Blood Pressure Position Supine 08/10/21 00:35 Pulse Oximetry 97 08/19/21 07:51 Oxygen Delivery Method Nasal Cannula 08/19/21 07:51 Oxygen Flow Rate 4 08/19/21 07:51 Fraction of Inspired Oxygen (FIO2) 37 08/15/21 16:26 Pain Level 9 08/19/21 13:38 Comment 08/17/21 08:38 Intake & Output 08/18/21 08/19/21 08/19/21 23:59 11:59 23:59 Other: Urine Color Yellow Urine Appearance Clear Clear Urine Odor Normal Comment pT voiding independent in toilet Stool Size Large Stool Characteristics Soft Liquid Brown Voiding Methods Toilet Bedside Commode Data Completed and Pending Completed studies during hospitalization [Text1]: CXR: No definite acute pulmonary process. Follow-up as clinically appropriate. CTA chest: No evidence of pulmonary embolism, thoracic aortic dissection or aneurysm. PFSH All Active Problems (Updated 08/17/21 @ 16:18 by Xenia Magana MD) Transaminitis (Acute) Discharge planning issues (Acute) DVT prophylaxis (Acute) Thrush, oral (Acute) Chronic respiratory failure with hypoxia (Chronic) COVID-19 (Acute) Restless leg syndrome (Acute) Acute exacerbation of chronic obstructive pulmonary disease (Acute) Lumbago with sciatica, right side (Acute) Medical History Anxiety CHF (congestive heart failure) COPD (chronic obstructive pulmonary disease) Kidney stones Migraine Multiple sclerosis Obstructive sleep apnea Surgical History H/O section History of hysterectomy History of knee surgery Hx of cholecystectomy S/P colectomy Social History Smoking/Tobacco Use Status: Former Tobacco Use Smoking risk assessment performed?: Yes Alcohol Intake: never Drug use: Never Substance use type: does not use Do you feel safe at home: Yes Do you feel safe in your relationship?: Yes
--- NOTE | 2021-08-19 15:02 | PDOC.HHF2F ---
Home Health Certification Home Health Certification: 1. Encounter Date and Reason I certify that Susy So was seen by Xenia Magana on 08/19/21 and that I had a [id number] encounter with this patient that meets the physician face to face encounter requirements. 2. Clinical Findings Supporting Skilled Need and Homebound Status I certify that home health services are medically necessary, include either intermittent shelter and/or physical/speech therapy, and that this patient is homebound in that absences from the home require considerable and taxing effort and are infrequent or of short duration, or are attributable to the need to receive medical care. [X] (a) Attached documentation from encounter provides clinical findings supporting skilled need and homebound status (including what assistance patient requires to leave the home). The encounter with the patient was in whole, or in part, for the following medical condition, which is the primary reason for home health care: COPD, Covid Correction: recovering from COVID-19, COPD exacerbation, multiple medical conditions, could benefit from home health nursing Physical Therapy: eval and treat Occupational Therapy: eval and treat MELTER HELPER: assess need for resources in the community Homebound: unable to leave home without assistance 3. Certification and Authentication I certify that I composed the above information based on my clinical judgement relating to this patient's medical condition and, if applicable, clinical findings communicated to me by the NPP or inpatient physician who performed the Home Health Referral. All further orders will be obtained through Paulina Alston (Community Based Physician - PCP)
--- NOTE | 2021-08-19 18:23 | PDOC.CMDIS ---
- If Service Date Differs Date of service: 08/19/21 Time of Service: 18:23 LACE Index Scoring Tool - Questions: Length of Stay (in days): 7 - 13 Acuity (Admit via E.D.?): Yes E.D. Visits: 3 - Answers: Total Score: 11 Risk of Readmission: High Risk Care Management Discharge Reason for Hospitalization: COPD, Covid Discharge Plan: Susy returned home today with new orders for RN, PT, OT, SALES MERCHANDISING SPECIALIST. called [facility] to inform them of her discharge today. Her daughter will drive her home via private vehicle. She will follow up with her PCP and discharge plan of care. Patient/Family Education Needs: Review discharge instructions regarding activity levels and medications, discussion of self care needs including ask me three. Services Needed at Discharge: Home Health Care Services (RN, PT, OT, SALES MERCHANDISING SPECIALIST)
== END 2021-08-19 16:09 | disposition home health service (06) | DRG 190 ==
LOC: ER 23:31 → ICU 08-10 00:37 → MS 08-11 23:52
PROVIDERS: Internal Medicine; Admitting Provider General Practice; Emergency Provider Nurse Practitioner Family; PCP Nurse Practitioner Family; Visit Provider General Practice
DX: U07.1 COVID-19 (principal); J96.11 Chronic respiratory failure with hypoxia; B37.0 Candidal stomatitis; Z68.41 Body mass index [BMI] 40.0-44.9, adult; J44.1 Chronic obstructive pulmonary disease with (acute) exacerbation; M54.41 Lumbago with sciatica, right side; G89.29 Other chronic pain; G25.81 Restless legs syndrome; G35 Multiple sclerosis; G47.33 Obstructive sleep apnea (adult) (pediatric); G43.909 Migraine, unspecified, not intractable, without status migrainosus; I50.9 Heart failure, unspecified; Z87.891 Personal history of nicotine dependence; Z99.81 Dependence on supplemental oxygen; R74.01 Elevation of levels of liver transaminase levels; E66.9 Obesity, unspecified; K76.0 Fatty (change of) liver, not elsewhere classified
CPT/HCPCS: 36415; 71275; 80048; 80053; 80076; 82550; 82805; 84145; 85027; 86704; 86706; 86803; 86850; 86900; 86901; 87040; 87340; 87389; 87449; 87635; 93005; 94618; 94640; 96374; 99285; J1650; 71045; 82728; 83615; 83735; 83880; 84100; 84484; 85025; 85379; 85610; 86140; 87081; 93010; 94660; 99222; 99231; 99232; 99233; 99239; 99284; J2930; J3490; J7512; J7620

== ENCOUNTER 2021-08-24 15:09 | Emergency (ER) | payer MEDICAID, SELFPAY ==
[2021-08-24] VITALS (13 sets, daily range): BP systolic 126–156; BP diastolic 73–88; PULSE 78–85; RESP 18–26; TEMP 36.9; O2SAT 91–97
--- NOTE | 2021-08-24 15:15 | DI.CT_ITS ---
Exam(s) CT RENAL COLIC WO EXAM: CT RENAL COLIC WO CLINICAL HISTORY: right flank pain, hx stones and fevers. TECHNIQUE: Imaging Protocol: Axial computed tomography images with coronal and sagittal reformatted images were created and reviewed. COMPARISON: CT CT RENAL COLIC WO from 03/11/[address] CHEST PE CTA from 08/09/2021 FINDINGS: The examination is limited due to patient motion artifact. ABDOMEN: Lung Bases: Normal where visualized. Liver: Normal density. No measurable mass. Gallbladder and biliary tract: Status post cholecystectomy. No biliary ductal dilatation. Pancreas: Normal density, no abnormal calcifications or inflammatory process. Spleen: Normal. Kidneys: Normal size, contour and axis.No radiodense stones or obstructive uropathy. No masses seen. Adrenal glands: No mass is seen. Lymph nodes: Within normal limits. Abdominal Aorta: Abdominal portion non-dilated. Atherosclerosis. PELVIS: Bladder:Symmetric distention, no gross wall thickening. Bowel: No obstruction or bowel wall thickening. Appendix is unremarkable. Peritoneal cavity: No ascites, collection or mesenteric inflammatory response. No free air. Reproductive organs: Within normal limits. Bones: Within normal limits. There is a nonunited right 10th rib fracture. Soft Tissues: Within normal limits. IMPRESSION: 1. No evidence of nephrolithiasis or hydronephrosis. 2. No acute abdominal pelvic process. 3. Results of this exam have been verbally communicated with provider. RADIATION DOSE DELIVERED: 1,555.2mGy.cm Total DLP DATA REPOSITORY: All CT scans at this facility are submitted to the National Radiology Data Registry (NRDR) Dose Index Registry (DIR) with the [employer] (ACR). RADIATION OPTIMIZATION: All CT scans at this facility use at least one of these dose optimization te chniques: automated exposure control; mA and/or kV adjustment per patient size (includes targeted exa ms where dose is matched to clinical indication); or iterative reconstruction.
[2021-08-24 15:32] LABS: Source Nasal/Nares
--- NOTE | 2021-08-24 15:34 | ED.GENADUL_ITS ---
Discharge Plan Disposition Patient Disposition: HOME Condition: Good Discharge Details Clinical Impression: Abdominal pain Primary Care Provider: Paulina Alston ED Provider: Joshua Obregon Home Meds and New Rx's Prescriptions: Continued albuterol sulfate [Ventolin HFA] 200 PUFF HFA aerosol inhaler 2 puff Inhalation QID PRNRF: 0 omeprazole magnesium [Prilosec OTC] 20 MG tablet,delayed release (DR/EC) 20 mg PO PRN PRNRF: 0 dextromethorphan-guaifenesin 5 ML syrup 10 ml PO Q4H PRN PRNQty: 1 RF: 0 albuterol sulfate 2.5 MG/3 ML solution for nebulization 2.5 mg Inhalation Q4H PRN PRNQty: 30 RF: 0 duloxetine 30 mg capsule,delayed release(DR/EC) 60 mg PO DAILY RF: 0 lactulose 10 gram/15 mL solution 15 ml PO .2-3 TIMES DAILY RF: 0 atorvastatin 20 mg tablet 20 mg PO DAILY RF: 0 aspirin 81 mg Tablet,Delayed Release (Dr/Ec) 81 mg PO DAILY RF: 0 spironolactone 25 mg tablet 25 mg PO DAILY RF: 0 vitamin B complex [Vitamins B Complex] Tablet 1 tab PO HS RF: 0 zolpidem 5 mg tablet 5 mg PO HS PRN PRNRF: 0 loratadine 10 mg tablet 10 mg PO DAILY RF: 0 acidophilus-pectin, citrus 25 million cell -100 mg tablet 1 tab PO DAILY RF: 0 Emgality Pen 120 mg/mL pen injector 120 mg SUBCUT Q30D RF: 0 Oxygen 2l/Min 2 RF: 0 codeine-guaifenesin [Guaifenesin AC] 10-100 mg/5 mL liquid 5 ml PO Q6H PRN (Reason: cough) Qty: 120 RF: 0 acetylcysteine 600 mg capsule 600 mg PO QID RF: 0 ascorbic acid (vitamin C) [Vitamin C] 500 mg Tablet 1,000 mg PO BID Qty: 120 RF: 0 baclofen 10 mg Tablet 10 mg PO TID PRN PRNQty: 30 RF: 0 famotidine 20 mg Tablet 20 mg PO BID Qty: 60 RF: 0 cholecalciferol (vitamin D3) 25 mcg (1,000 unit) Tablet 2,000 units PO DAILY Qty: 20 RF: 0 guaifenesin [Mucinex] 600 mg Tablet Extended Release 12hr 600 mg PO BID Qty: 20 RF: 0 ondansetron 4 mg Tablet,Disintegrating 4 mg PO Q6H PRN PRNQty: 30 RF: 0 polyethylene glycol 3350 17 gram Powder In Packet 17 g PO BID Qty: 60 RF: 0 prednisone 20 mg Tablet See Rx Instructions .ROUTE .COMPLEX Qty: 14 RF: 0 sennosides-docusate sodium [Colace 2-In-1] 8.6-50 mg Tablet 1 tab PO BID Qty: 60 RF: 0 gabapentin 600 mg tablet 900 mg PO TID Qty: 150 RF: 0 pramipexole 0.5 mg tablet 1 mg PO DAILY@1700 Qty: 60 RF: 0 hydromorphone [Dilaudid] 2 mg tablet 2 - 4 mg PO Q6H PRN (Reason: pain) Qty: 24 RF: 0 naloxone [Narcan] 4 mg/actuation spray,non-aerosol 4 mg intranasal Q2-3M PRN (Reason: opioid overdose) Qty: 2 RF: 0 Trelegy Ellipta 200-62.5-25 mcg blister with device 1 inh INHALATION DAILY RF: 0 benzonatate 100 MG capsule 100 mg PO Q8H PRNRF: 0 montelukast [Singulair] 10 MG tablet 10 mg PO DAILY RF: 0 fluticasone propionate [Flonase Allergy Relief] 9.9 ML spray,suspension 1 spray IN DIRECTED RF: 0 Discharge Instructions Instructions: Abdominal Pain (ED) Additional Instructions: At this time your work-up shows no significant abnormality in your abdomen. There is no signs of urinary tract infection. Your laboratory work-up is stable. Please follow-up closely with your primary care provider. Your liver function is still high, please follow-up with your primary care provider to reassess changes in this. If you notice any worsening of your symptoms, or any new symptoms such as vomiting, diarrhea, fever, chills, shortness of breath, chest pain, numbness, weakness, or fainting , please return immediately to the emergency department for reevaluation. Please follow up with your primary care provider as soon as possible for reassessment and reevaluation. As always, it was a pleasure participating in your medical care today. Referrals: Paulina Alston [Primary Care Provider] - Medical Decision Making This is a 61-year-old female with a past medical history of CHF, COPD, kidney stones, migraines, multiple sclerosis, obstructive sleep apnea, C- section, hysterectomy, cholecystectomy, partial colectomy, who presents today for right flank pain. Of note historically patient was recently discharged from [facility] late last month after admission for Covid. She has been doing well from that standpoint since then. She states that yesterday she developed right-sided flank pain. States it feels similar to her previous kidney stone and or urinary infection. She admits to frequency and mild burning in her urine. She denies any vomiting or diarrhea. She admits to some chills, and her home health nurse noted that she had a temperature of 100.4. She denies any other complaints this time. She denies taking any NSAIDs. Physical exam demonstrates mild right CVA tenderness. No abdominal tenderness. Patient looks very stable. Differential includes UTI versus kidney stone or both. We did a CT scan with a history of kidney stones, monitor closely. 5:30 PM Laboratory work-up is returned relatively unremarkable. Transaminases are s lightly high, this appears to be around her normal limits for her. She has had notable transaminitis in the past, this is certainly not exceeded any of those levels. Recommend avoidance of Tylenol, and other hepatically toxic substances. At this stage the patient remains afebrile, urinalysis negative for infection. She still is Covid positive on testing. Repeat abdominal exam continues to show no signs of an acute surgical abdomen. Patient stable for discharge. She is actually personally requesting discharge at this time stating that she feels fine and would like to go home. Discussed the importance of following up with her PCP for reassessment of her lab values discussed red flags which to return. I have extensively reviewed the treatment plan and discharge instructions with the patient. I have addressed all patient concerns at this time. The patient was made aware of what symptoms to monitor for that would warrant a return to the emergency department. Discussed the plan with the patient, they demonstrate verbal understanding and agreement with our assessment and plan at this time. The documentation in this chart was dictated using [employer] dictation software. Please excuse any dictation errors. FINDINGS: The examination is limited due to patient motion artifact. ABDOMEN: Lung Bases: Normal where visualized. Liver: Normal density. No measurable mass. Gallbladder and biliary tract: Status post cholecystectomy. No biliary ductal dilatation. Pancreas: Normal density, no abnormal calcifications or inflammatory process. Spleen: Normal. Kidneys: Normal size, contour and axis.No radiodense stones or obstructive uropathy. No masses seen. Adrenal glands: No mass is seen. Lymph nodes: Within normal limits. Abdominal Aorta: Abdominal portion non-dilated. Atherosclerosis. PELVIS: Bladder:Symmetric distention, no gross wall thickening. Bowel: No obstruction or bowel wall thickening. Appendix is unremarkable. Peritoneal cavity: No ascites, collection or mesenteric inflammatory response. No free air. Reproductive organs: Within normal limits. Bones: Within normal limits. There is a nonunited right 10th rib fracture. Soft Tissues: Within normal limits. IMPRESSION: 1. No evidence of nephrolithiasis or hydronephrosis. 2. No acute abdominal pelvic process. 3. Results of this exam have been verbally communicated with provider. HPI General Date/Time Provider Initiated Documentation: 08/24/21 15:10 . HPI Narrative: This is a 61-year-old female with a past medical history of CHF, COPD, kidney stones, migraines, multiple sclerosis, obstructive sleep apnea, C- section, hysterectomy, cholecystectomy, partial colectomy, who presents today for right flank pain. Of note historically patient was recently discharged from [facility] late last month after admission for Covid. She has been doing well from that standpoint since then. She states that yesterday she developed right-sided flank pain. States it feels similar to her previous kidney stone and or urinary infection. She admits to frequency and mild burning in her urine. She denies any vomiting or diarrhea. She admits to some chills, and her home health nurse noted that she had a temperature of 100.4. She denies any other complaints this time. She denies taking any NSAIDs. Related Data Home Medications Medication Instructions Recorded Confirmed albuterol sulfate [Ventolin HFA] 2 puff INHALATION QID PRN 08/03/15 08/24/21 omeprazole magnesium [Prilosec OTC] 20 mg PO PRN PRN 08/03/15 08/24/21 albuterol sulfate 2.5 mg INHALATION Q4H PRN PRN #30 08/06/15 08/24/21 ml dextromethorphan-guaifenesin 10 ml PO Q4H PRN PRN #1 btl 08/06/15 08/24/21 benzonatate 100 mg PO Q8H PRN 04/06/17 08/24/21 fluticasone propionate [Flonase 1 spray IN DIRECTED 04/06/17 08/24/21 Allergy Relief] montelukast [Singulair] 10 mg PO DAILY 04/06/17 08/24/21 Emgality Pen 120 mg SUBCUT Q30D 06/15/21 06/15/21 Oxygen 2l/Min 2 06/15/21 acidophilus-pectin, citrus 1 tab PO DAILY 06/15/21 08/24/21 aspirin 81 mg PO DAILY 06/15/21 08/24/21 atorvastatin 20 mg PO DAILY 06/15/21 08/24/21 codeine-guaifenesin [Guaifenesin 5 ml PO Q6H PRN #120 ml 06/15/21 08/24/21 AC] duloxetine 60 mg PO DAILY 06/15/21 08/24/21 lactulose 15 ml PO .2-3 TIMES DAILY 06/15/21 08/24/21 loratadine 10 mg PO DAILY 06/15/21 08/24/21 spironolactone 25 mg PO DAILY 06/15/21 08/24/21 vitamin B complex [Vitamins B 1 tab PO HS 06/15/21 08/24/21 Complex] zolpidem 5 mg PO HS PRN PRN 06/15/21 08/24/21 acetylcysteine 600 mg PO QID 08/09/21 08/24/21 ascorbic acid (vitamin C) [Vitamin 1,000 mg PO BID #120 tab 08/18/21 08/24/21 C] baclofen 10 mg PO TID PRN PRN #30 tab 08/18/21 08/24/21 cholecalciferol (vitamin D3) 2,000 units PO DAILY #20 tab 08/18/21 08/24/21 famotidine 20 mg PO BID #60 tab 08/18/21 08/24/21 gabapentin 900 mg PO TID #150 tab 08/18/21 08/24/21 guaifenesin [Mucinex] 600 mg PO BID #20 tab 08/18/21 08/24/21 ondansetron 4 mg PO Q6H PRN PRN #30 tab 12/29/21 01/04/22 polyethylene glycol 3350 17 g PO BID #60 ea 08/18/21 08/24/21 pramipexole 1 mg PO DAILY@1700 #60 tab 08/18/21 08/24/21 prednisone See Rx Instructions .ROUTE 08/18/21 08/24/21 .COMPLEX #14 tab sennosides-docusate sodium [Colace 1 tab PO BID #60 tab 08/18/21 08/24/21 2-In-1] hydromorphone [Dilaudid] 2 - 4 mg PO Q6H PRN #24 tab 08/19/21 08/24/21 naloxone [Narcan] 4 mg INTRANASAL Q2-3M PRN #2 ea 08/19/21 08/24/21 Trelegy Ellipta 1 inh INHALATION DAILY 08/24/21 08/24/21 Previous Rx's Medication Instructions Recorded albuterol sulfate 2.5 mg INHALATION Q4H PRN PRN #30 08/06/15 ml dextromethorphan-guaifenesin 10 ml PO Q4H PRN PRN #1 btl 08/06/15 codeine-guaifenesin [Guaifenesin 5 ml PO Q6H PRN #120 ml 06/15/21 AC] ascorbic acid (vitamin C) [Vitamin 1,000 mg PO BID #120 tab 08/18/21 C] baclofen 10 mg PO TID PRN PRN #30 tab 08/18/21 cholecalciferol (vitamin D3) 2,000 units PO DAILY #20 tab 08/18/21 famotidine 20 mg PO BID #60 tab 08/18/21 gabapentin 900 mg PO TID #150 tab 08/18/21 guaifenesin [Mucinex] 600 mg PO BID #20 tab 08/18/21 ondansetron 4 mg PO Q6H PRN PRN #30 tab 08/18/21 polyethylene glycol 3350 17 g PO BID #60 ea 08/18/21 pramipexole 1 mg PO DAILY@1700 #60 tab 08/18/21 prednisone See Rx Instructions .ROUTE 08/18/21 .COMPLEX #14 tab sennosides-docusate sodium [Colace 1 tab PO BID #60 tab 12/29/21 2-In-1] hydromorphone [Dilaudid] 2 - 4 mg PO Q6H PRN #24 tab 08/19/21 naloxone [Narcan] 4 mg INTRANASAL Q2-3M PRN #2 ea 08/19/21 Allergies Allergy/AdvReac Type Severity Reaction Status Date / Time hydrocodone [From Vicodin] AdvReac Mild Unverified 08/24/21 15:21 acetaminophen AdvReac Has liver Unverified 08/24/21 15:21 disease-does not use codeine [Codeine] AdvReac VOMITING Unverified 08/24/21 15:21 ibuprofen AdvReac Has liver Unverified 08/24/21 15:21 disease does not use oxycodone HCl [From Percocet] AdvReac VOMITING Unverified 08/24/21 15:21 General Stated Complaint: Abd Prob SHRUTHI: 3 Review of Systems All systems reviewed & are unremarkable except as noted in HPI and below PFSH All Active Problems (Updated 08/24/21 @ 17:25 by Joshua Obregon DO) Abdominal pain (Acute) Thrush, oral (Acute) Chronic respiratory failure with hypoxia (Chronic) COVID-19 (Acute) Restless leg syndrome (Acute) Acute exacerbation of chronic obstructive pulmonary disease (Acute) Lumbago with sciatica, right side (Acute) Medical History Anxiety CHF (congestive heart failure) COPD (chronic obstructive pulmonary disease) Kidney stones Migraine Multiple sclerosis Obstructive sleep apnea Surgical History H/O section History of hysterectomy History of knee surgery Hx of cholecystectomy S/P colectomy Social History Smoking/Tobacco Use Status: Former Tobacco Use Smoking risk assessment performed?: Yes Alcohol Intake: current Alcohol Intake frequency: holidays/special occasions only Drug use: Never Substance use type: does not use Do you feel safe at home: Yes Do you feel safe in your relationship?: Yes Exam Narrative Exam Narrative: 1.Const: Well-nourished, Well-developed, appearing stated age 2.Eyes: PERRL, no conjunctival injection, and symmetrical lids. 3.ENT: Atraumatic external nose and ears. Moist MM. Neck: Symmetric, trachea midline, No thyromegaly. 4.CVS: +S1/S2, No murmurs or gallops. Peripheral pulses 2+ and equal in all extremities. Brisk capillary refill in all extremities. 5.RESP: Unlabored respiratory effort. Clear to auscultation bilaterally. No wheezes rales or rhonchi 6.GI: Soft, Nontender/Nondistended, No hepatosplenomegaly. Mild right CVA tenderness on percussion. No reproducible abdominal tenderness. No pain to [place]'s point, negative Clark sign 7.MSK: Normocephalic/Atraumatic, Extremities w/o deformity or ttp No cyanosis or clubbing, Normal movement of all extremities 8.Skin: Warm, Dry. No rashes or lesions. 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 Sensation grossly intact, no focal neurologic deficits. 10.Psych: (AAO) x3. Appropriate mood and affect Course Vital Signs Vital signs: Vital Signs Temperature 36.9 C 08/24/21 15:21 Pulse 83 08/24/21 15:21 Respiratory Rate 18 08/24/21 15:21 Blood Pressure 131/79 08/24/21 15:21 Pulse Oximetry 91 L 08/24/21 15:21 Temperature 36.9 C 08/24/21 15:21 Temperature Source Oral 08/24/21 15:21 Pulse 83 08/24/21 15:21 Respiratory Rate 18 08/24/21 15:21 Respiratory Effort Non-Labored 08/24/21 15:23 Blood Pressure 131/79 08/24/21 15:21 Pulse Oximetry 91 L 08/24/21 15:21 Oxygen Delivery Method Room Air 08/24/21 15:21 Oxygen Flow Rate 0 08/24/21 15:21 Pain Level 8 08/24/21 15:15 Lab/Test Results Lab/Test Results: 08/24/21 15:30 Blood Blood Culture - Pending 08/24/21 15:22 Blood Blood Culture - Pending Laboratory Tests Range/Units 08/24/21 15:30 COVID-19 Source Nasal/Nares
[2021-08-24 15:35] LABS: Lactate 1.5 mmol/L (0.6-1.4)
[2021-08-24] MEDS: Normal Saline 1,000 ML 125 ML IV (15:54)
[2021-08-24 16:06] LABS: ALT 248 U/L (14-59); AST 123 U/L (15-37); Albumin 3.3 g/dL (3.4-5.0); Alkaline Phosphatase 91 U/L (46-116); Anion Gap 7.2 mmol/L (3-11); BUN 15 mg/dL (7-18); Bilirubin, Total 0.3 mg/dL (0.2-1.0); CO2 30.8 mmol/L (21.0-32.0); CREATININE 0.9 mg/dL (0.55-1.02); Calcium 8.8 mg/dL (8.5-10.1); Chloride 103 mmol/L (98-107); Glucose 187 mg/dL (74-106); Potassium 4.5 mmol/L (3.5-5.1); Sodium 141 mmol/L (136-145); Total Protein 7.6 g/dL (6.4-8.2)
[2021-08-24 16:12] LABS: Bilirubin Negative (Negative); Blood Negative (Negative); Clarity Sl Cloudy (Clear); Glucose Negative (Negative); Ketones Negative (Negative); Leukocyte Esterase Negative (Negative); Nitrite Negative (Negative); Urobilinogen 0.2 EU/dL (Up TO 0.2); pH 8.5 (5-8)
[2021-08-24 16:16] LABS: COVID-19 PCR POSITIVE (Negative)
[2021-08-24 16:23] LABS: Abs Immature Grans 0.02 10^3/uL (0.0-0.06); Absolute Basophil Count 0.01 10^3/uL (0.0-0.2); Absolute Eosinophil Count 0.11 10^3/uL (0.0-0.7); Absolute Lymphocyte Count 0.62 10^3/uL (1.2-3.4); Absolute Neutrophil Count 8.92 10^3/uL (1.2-6.7); Basophils % 0.1; Eosinophils % 1.1; HCT 44.7 % (36.0-46.0); HGB 14.4 g/dL (11.2-15.7); Immature Grans % 0.2; Lymphocytes % 6.3; MCH 31.7 pg (27.0-33.0); MCHC 32.2 % (32.0-36.0); MCV 98.5 fL (80-95); MPV 9.9 fL (8.0-11.0); Neutrophils % 91.3; Nucleated RBC 0 %; Platelet Count 362 10^3/uL (130-400); RBC 4.54 10^6/uL (3.93-5.22); RDW 12.1 % (11.7-14.6); RDW-SD 43.9 fL; WBC 9.78 10^3/uL (4.4-10.8)
== END 2021-08-24 17:37 | disposition home or self-care (01) ==
PROVIDERS: Emergency Provider Student in an Organized Health Care Education/Training Program; PCP Nurse Practitioner Family
DX: R10.9 Unspecified abdominal pain (principal); Z94.9 Transplanted organ and tissue status, unspecified; Z87.442 Personal history of urinary calculi; R50.9 Fever, unspecified; R35.0 Frequency of micturition; U07.1 COVID-19; R74.01 Elevation of levels of liver transaminase levels
CPT/HCPCS: 36415; 80053; 87040; 87635; 99284; 74176; 81003; 83605; 85025

== ENCOUNTER 2021-09-21 20:38 | Outpatient (REF) | payer MEDICAID, SELFPAY ==
[2021-09-21 16:14] LABS: Abs Immature Grans 0.03 10^3/uL (0.0-0.06); Absolute Basophil Count 0.05 10^3/uL (0.0-0.2); Absolute Eosinophil Count 0.23 10^3/uL (0.0-0.7); Absolute Monocyte Count 0.57 10^3/uL (0.1-0.8); Absolute Neutrophil Count 5.89 10^3/uL (1.2-6.7); Basophils % 0.5; Eosinophils % 2.5; HCT 42.3 % (36.0-46.0); HGB 13.9 g/dL (11.2-15.7); Immature Grans % 0.3; MCH 31.5 pg (27.0-33.0); MCHC 32.9 % (32.0-36.0); MCV 95.9 fL (80-95); MPV 10.6 fL (8.0-11.0); Monocytes % 6.1; Neutrophils % 63.6; Nucleated RBC 0 %; Platelet Count 270 10^3/uL (130-400); RBC 4.41 10^6/uL (3.93-5.22); RDW 12.9 % (11.7-14.6); RDW-SD 45.1 fL; WBC 9.27 10^3/uL (4.4-10.8)
[2021-09-21 16:45] LABS: Iron 92 ug/dL (50-170); Total Iron Binding Capacity 289 ug/dL (250-450); Transferrin Sat 32 % (15-50)
[2021-09-21 16:51] LABS: Hemoglobin A1C 8.1 % (<5.7)
[2021-09-21 16:59] LABS: ALT 203 U/L (14-59); AST 96 U/L (15-37); Albumin 3.6 g/dL (3.4-5.0); Alkaline Phosphatase 97 U/L (46-116); Anion Gap 10.7 mmol/L (3-11); BUN 12 mg/dL (7-18); Bilirubin, Total 0.4 mg/dL (0.2-1.0); CO2 28.3 mmol/L (21.0-32.0); CREATININE 0.8 mg/dL (0.55-1.02); Calcium 8.9 mg/dL (8.5-10.1); Chloride 100 mmol/L (98-107); Ferritin 309 ng/mL (8-252); Glucose 192 mg/dL (74-106); Potassium 3.7 mmol/L (3.5-5.1); Sodium 139 mmol/L (136-145); TSH (W/Ref FT4) 3.59 uIU/mL (0.36-3.74); Total Protein 7.2 g/dL (6.4-8.2)
[2021-09-21 17:26] LABS: NT-proBNP 20 pg/mL (<300)
== END 2021-09-21 20:39 | disposition home or self-care (01) ==
LOC: NCHCN 20:38
PROVIDERS: PCP Nurse Practitioner Family; Visit Provider Nurse Practitioner Family
DX: E03.9 Hypothyroidism, unspecified (principal); R73.01 Impaired fasting glucose; I73.9 Peripheral vascular disease, unspecified; K74.60 Unspecified cirrhosis of liver; J44.9 Chronic obstructive pulmonary disease, unspecified; R60.0 Localized edema
CPT/HCPCS: 80053; 82728; 83036; 83540; 83550; 83880; 84443; 85025

== ENCOUNTER 2021-09-29 00:37 | Outpatient (CLI) | payer MEDICAID, SELFPAY ==
--- NOTE | 2021-09-29 07:30 | DI.US_ITS ---
Exam(s) US ABDOMEN EXAM: US ABDOMEN CLINICAL HISTORY: CIRRHOSIS, K74.60 TECHNIQUE: Ultrasound of complete upper abdomen performed using standard protocol. COMPARISON: US US RENAL PELVIC TRANSVAGINAL from 12/18/[address] RENAL COLIC WO from 08/24/2021 FINDINGS: There is no ascites evident. LIVER: Liver is somewhat hyperechoic, indicating element of steatosis. However, there are no hepatic lesions evident nor obvious dilatation of intrahepatic ducts. GALLBLADDER/BILIARY: Gallbladder surgically absent. The common hepatic duct issignificantly dilated, measuring 18mm at the level of leanna hepatis. PANCREAS: Incompletely visualized due to bowel gas. SPLEEN: The spleen is not enlarged and there are no intrasplenic lesions evident. KIDNEYS:Kidneys exhibit normal size with no evidence of solid mass, calculus, nor hydronephrosis. No cortical cysts evident. ABDOMINAL AORTA: There is no evidence of abdominal aortic aneurysm. IVC: Normal diameter where visualized. IMPRESSION: 1. Gallbladder surgically absent. Measurement of the common hepatic duct on this study is significa ntly enlarged, measuring 18 millimeters. However, this does not correspond to findings on the recent CT scan of 08/24/2021. Correlation with blood work is recommended. 2. Pancreas is not well seen due to overlying bowel gas 3. Recommend follow-up contrast infused CT scan. DATA REPOSITORY:
== END 2021-09-29 00:57 ==
PROVIDERS: PCP Nurse Practitioner Family; Visit Provider Nurse Practitioner Family
DX: K76.0 Fatty (change of) liver, not elsewhere classified (principal); K74.69 Other cirrhosis of liver; K83.8 Other specified diseases of biliary tract; Z90.49 Acquired absence of other specified parts of digestive tract
CPT/HCPCS: 76700

== ENCOUNTER 2021-10-12 16:21 | Outpatient (REF) | payer MEDICAID, SELFPAY ==
[2021-10-12 18:10] LABS: BUN 12 mg/dL (7-18); CREATININE 0.8 mg/dL (0.55-1.02); Calcium 8.9 mg/dL (8.5-10.1); Chloride 99 mmol/L (98-107); Glucose 201 mg/dL (74-106); Potassium 4.2 mmol/L (3.5-5.1); Sodium 139 mmol/L (136-145)
== END 2021-10-12 16:22 | disposition home or self-care (01) ==
LOC: LBN 16:21
PROVIDERS: PCP Nurse Practitioner Family; Visit Provider Nurse Practitioner Family
DX: K74.69 Other cirrhosis of liver (principal); K76.0 Fatty (change of) liver, not elsewhere classified; R60.0 Localized edema
CPT/HCPCS: 80048

== ENCOUNTER 2021-10-15 18:54 | Outpatient (REF) | payer MEDICAID, SELFPAY | END 2021-10-15 18:55 | disposition home or self-care (01) | LOC: NCHCN 18:54 | PROVIDERS: PCP Nurse Practitioner Family; Visit Provider Nurse Practitioner Family ==

== ENCOUNTER 2021-10-15 18:58 | Outpatient (CLI) | payer MEDICAID, SELFPAY ==
[2021-10-15 14:17] LABS: Ammonia < 10 umol/L (11-32)
[2021-10-15 14:18] LABS: ALT 131 U/L (14-59); AST 65 U/L (15-37); Albumin 3.8 g/dL (3.4-5.0); Alkaline Phosphatase 82 U/L (46-116); Anion Gap 8.6 mmol/L (3-11); BUN 12 mg/dL (7-18); Bilirubin, Total 0.4 mg/dL (0.2-1.0); CO2 31.4 mmol/L (21.0-32.0); CREATININE 0.7 mg/dL (0.55-1.02); Calcium 9.4 mg/dL (8.5-10.1); Chloride 102 mmol/L (98-107); Glucose 103 mg/dL (74-106); Potassium 3.7 mmol/L (3.5-5.1); Sodium 142 mmol/L (136-145); Total Protein 7.9 g/dL (6.4-8.2)
== END 2021-10-15 18:59 | disposition home or self-care (01) ==
LOC: LBO 18:58
PROVIDERS: PCP Nurse Practitioner Family; Visit Provider Nurse Practitioner Family
DX: R41.0 Disorientation, unspecified (principal); K74.60 Unspecified cirrhosis of liver
CPT/HCPCS: 36415; 80053; 82140

== ENCOUNTER 2021-10-25 10:47 | Outpatient (REF) | payer MEDICAID, SELFPAY ==
[2021-10-25 15:13] LABS: Abs Immature Grans 0.04 10^3/uL (0.0-0.06); Absolute Basophil Count 0.05 10^3/uL (0.0-0.2); Absolute Eosinophil Count 0.61 10^3/uL (0.0-0.7); Absolute Lymphocyte Count 2.35 10^3/uL (1.2-3.4); Absolute Monocyte Count 0.57 10^3/uL (0.1-0.8); Absolute Neutrophil Count 7.27 10^3/uL (1.2-6.7); Basophils % 0.5; Eosinophils % 5.6; HCT 43.6 % (36.0-46.0); HGB 14.1 g/dL (11.2-15.7); Immature Grans % 0.4; Lymphocytes % 21.6; MCHC 32.3 % (32.0-36.0); MCV 98.9 fL (80-95); MPV 10.5 fL (8.0-11.0); Monocytes % 5.2; Neutrophils % 66.7; Nucleated RBC 0 %; Platelet Count 266 10^3/uL (130-400); RBC 4.41 10^6/uL (3.93-5.22); RDW 12.7 % (11.7-14.6); RDW-SD 46.6 fL
[2021-10-25 15:16] LABS: ESR 50 mm/hr (0-30)
[2021-10-25 15:57] LABS: ALT 104 U/L (14-59); AST 34 U/L (15-37); Albumin 3.7 g/dL (3.4-5.0); Alkaline Phosphatase 85 U/L (46-116); Anion Gap 9.4 mmol/L (3-11); BUN 11 mg/dL (7-18); Bilirubin, Total 0.4 mg/dL (0.2-1.0); C-Reactive Protein 0.54 mg/dL (0.0-0.3); CO2 30.6 mmol/L (21.0-32.0); CREATININE 0.8 mg/dL (0.55-1.02); Calcium 8.9 mg/dL (8.5-10.1); Chloride 101 mmol/L (98-107); Glucose 124 mg/dL (74-106); Magnesium 2.2 mg/dL (1.8-2.4); Potassium 3.9 mmol/L (3.5-5.1); Sodium 141 mmol/L (136-145); TSH (W/Ref FT4) 3.39 uIU/mL (0.36-3.74); Total Protein 7.2 g/dL (6.4-8.2)
[2021-10-25 16:09] LABS: Iron 92 ug/dL (50-170); Total Iron Binding Capacity 301 ug/dL (250-450); Transferrin Sat 31 % (15-50)
[2021-10-25 16:25] LABS: Ferritin 127 ng/mL (8-252)
[2021-10-26 11:51] LABS: Lyme Ab w Rflx to Lyme Confirm Negative (Negative)
[2021-10-26 14:07] LABS: ANA Interpretation Negative (Negative)
[2021-10-27 23:24] LABS: Anaplasma phagocytophilum Negative (Negative); B. miyamotoi PCR Negative (Negative); Babesia divergens/MO-1 Negative (Negative); Babesia duncani Negative (Negative); Babesia microti Negative (Negative); Ehrlichia chaffeensis Negative (Negative); Ehrlichia ewingii/canis Negative (Negative); Ehrlichia muris eauclairensis Negative (Negative)
== END 2021-10-25 10:48 | disposition home or self-care (01) ==
LOC: NCHCN 10:47
PROVIDERS: PCP Nurse Practitioner Family; Visit Provider Nurse Practitioner Family
DX: R53.83 Other fatigue (principal); M54.59 Other low back pain
CPT/HCPCS: 80053; 85652; 87798; 82728; 83540; 83550; 83735; 84443; 85025; 86038; 86140; 86618

== ENCOUNTER 2022-06-13 11:32 | Outpatient (REF) | payer MEDICAID, SELFPAY ==
[2022-06-13 16:11] LABS: Calculated LDL 51 mg/dL (<100); Cholesterol 124 mg/dL (<200); HDL Cholesterol 49 mg/dL (40-60); Triglyceride 124 mg/dL (<150)
== END 2022-06-13 11:33 | disposition home or self-care (01) ==
LOC: NCHCN 11:32
PROVIDERS: PCP Nurse Practitioner Family; Visit Provider Nurse Practitioner Family
DX: E66.9 Obesity, unspecified (principal); I70.90 Unspecified atherosclerosis
CPT/HCPCS: 80061

== ENCOUNTER → 2022-06-29 02:21 | Outpatient (CLI) | payer MEDICAID, SELFPAY ==
--- NOTE | 2022-06-29 11:00 | DI.RAD_ITS ---
Exam(s) XR CHEST 2V PA LATERAL EXAM: XR CHEST 2V PA LATERAL CLINICAL HISTORY: SOB, R06.02 TECHNIQUE: 2D digital imaging was performed of the chest. Two images were obtained. PA and lateral views were obtained. COMPARISON: CR XR CHEST 2V PA LATERAL from 07/17/2018 CR,XR XR PORTABLE CHEST AP from 08/09/2021 FINDINGS: MEDIASTINUM: Normal. HEART: Normal. PULMONARY VASCULATURE: Normal. LUNGS: Clear. PLEURAL SPACE: No pleural effusion or pneumothorax. BONE:Within normal limits for the patient's age. OTHER FINDINGS:Normal. IMPRESSION: No acute pulmonary findings. DATA REPOSITORY: RADIATION DOSE DELIVERED:
== END ==
PROVIDERS: PCP Nurse Practitioner Family; Visit Provider Nurse Practitioner Family
DX: R06.02 Shortness of breath (principal)
CPT/HCPCS: 71046

== ENCOUNTER 2022-07-22 13:11 | Outpatient (REF) | payer MEDICAID, SELFPAY ==
[2022-07-22 12:08] LABS: ALT 62 U/L (14-59); AST 28 U/L (15-37); Albumin 3.4 g/dL (3.4-5.0); Alkaline Phosphatase 99 U/L (46-116); Anion Gap 4.8 mmol/L (3-11); BUN 14 mg/dL (7-18); Bilirubin, Total 0.2 mg/dL (0.2-1.0); CO2 33.2 mmol/L (21.0-32.0); CREATININE 0.8 mg/dL (0.55-1.02); Chloride 102 mmol/L (98-107); Estimated GFR 83.26 (mL/min/1.73m2); Glucose 129 mg/dL (74-106); NT-proBNP 48 pg/mL (<300); Potassium 3.8 mmol/L (3.5-5.1); Sodium 140 mmol/L (136-145); Total Protein 6.8 g/dL (6.4-8.2)
== END 2022-07-22 13:12 | disposition home or self-care (01) ==
LOC: NCHCN 13:11
PROVIDERS: PCP Nurse Practitioner Family; Visit Provider Nurse Practitioner Family
DX: R06.02 Shortness of breath (principal)
CPT/HCPCS: 80053; 83880

== ENCOUNTER 2022-08-03 16:50 | Emergency (ER) | payer MEDICAID, SELFPAY ==
--- NOTE | 2022-08-03 16:45 | DI.RAD_ITS ---
Exam(s) XR PORTABLE CHEST AP EXAM: XR PORTABLE CHEST AP CLINICAL HISTORY: cough copd TECHNIQUE: 2D digital imaging was performed of the chest. One image was obtained. An AP view was ob tained. COMPARISON: CR,XR XR PORTABLE CHEST AP from 08/09/2021 CR XR CHEST 2V PA LATERAL from 06/29/2022 FINDINGS: MEDIASTINUM: Normal. HEART: Normal. PULMONARY VASCULATURE: Normal. LUNGS: Clear. PLEURAL SPACE: No pleural effusion or pneumothorax. BONE:Within normal limits for the patient's age. OTHER FINDINGS:Normal. IMPRESSION: No acute pulmonary findings. DATA REPOSITORY: RADIATION DOSE DELIVERED:
--- NOTE | 2022-08-03 16:45 | RT.EKG_ITS ---
APPROVED REPORT Exam: Resting ECG Reason for Exam: sob Patient Location: E HR:92 bpm ECG Measurements Heart Rate 92 AXIS AR 180 P 64 QRSd 97 QRS 76 QT 363 T 63 QTc 448 Conclusion Sinus rhythm...normal P axis, V-rate 60- 99 Anteroseptal infarct, age indeterminate...Q >35mS, T neg, V1-V2 sinus rhythm, normal axis,
[2022-08-03 16:49] VITALS: BP 130/61; PULSE 94; RESP 10; TEMP 36.2; O2SAT 90
--- NOTE | 2022-08-03 16:59 | ED.GENADUL_ITS ---
Discharge Plan Disposition Patient Disposition: Home Condition: Improving Discharge Details Clinical Impression: Acute exacerbation of chronic obstructive pulmonary disease, Influenza Primary Care Provider: Paulina Alston ED Provider: Dae Thomas Home Meds and New Rx's Prescriptions: New azithromycin 250 mg tablet 250 mg PO DAILY 4 Days Qty: 4 0RF Rx Instructions: start on day 2 of therapy No Action albuterol sulfate [Ventolin HFA] 200 PUFF HFA aerosol inhaler 2 puff Inhalation QID PRN Label Comments: VENTOLIN HFA 108 (90) BASE) MCG/ACT AERS omeprazole magnesium [Prilosec OTC] 20 MG tablet,delayed release (DR/EC) 20 mg PO PRN PRN dextromethorphan-guaifenesin 5 ML syrup 10 ml PO Q4H PRN PRNQty: 1 0RF albuterol sulfate 2.5 MG/3 ML solution for nebulization 2.5 mg Inhalation Q4H PRN PRNQty: 30 0RF Rx Instructions: via nebulizer duloxetine 30 mg capsule,delayed release(DR/EC) 60 mg PO DAILY Label Comments: TAKE ONE CAPSULE BY MOUTH EVERY DAY lactulose 10 gram/15 mL solution 15 ml PO .2-3 TIMES DAILY Label Comments: TAKE 15 MLS BY MOUTH 3 TIMES A DAY NEEDED GOAL IS 2 4 LOOSE BOWEL MOVEMENTS A DAY atorvastatin 20 mg tablet 20 mg PO DAILY Label Comments: TAKE ONE TABLET BY MOUTH EVERY DAY aspirin 81 mg Tablet,Delayed Release (Dr/Ec) 81 mg PO DAILY spironolactone 25 mg tablet 25 mg PO DAILY Label Comments: TAKE ONE TABLET BY MOUTH EVERY DAY vitamin B complex [Vitamins B Complex] Tablet 1 tab PO HS Label Comments: TAKE ONE TABLET BY MOUTH AT BEDTIME zolpidem 5 mg tablet 5 mg PO HS PRN PRN Label Comments: TAKE 1 TABLET BY MOUTH EVERY NIGHT NEEDED loratadine 10 mg tablet 10 mg PO DAILY Label Comments: TAKE ONE TABLET BY MOUTH EVERY DAY acidophilus-pectin, citrus 25 million cell -100 mg tablet 1 tab PO DAILY Label Comments: TAKE ONE TABLET BY MOUTH EVERY DAY Emgality Pen 120 mg/mL pen injector 120 mg SUBCUT Q30D Oxygen 2l/Min 2 codeine-guaifenesin [Guaifenesin AC] 10-100 mg/5 mL liquid 5 ml PO Q6H PRN (Reason: cough) Qty: 120 0RF acetylcysteine 600 mg capsule 600 mg PO QID Label Comments: TAKE ONE CAPSULE BY MOUTH FOUR TIMES A DAY ascorbic acid (vitamin C) [Vitamin C] 500 mg Tablet 1,000 mg PO BID Qty: 120 0RF baclofen 10 mg Tablet 10 mg PO TID PRN PRNQty: 30 0RF famotidine 20 mg Tablet 20 mg PO BID Qty: 60 0RF cholecalciferol (vitamin D3) 25 mcg (1,000 unit) Tablet 2,000 units PO DAILY Qty: 20 0RF guaifenesin [Mucinex] 600 mg Tablet Extended Release 12hr 600 mg PO BID Qty: 20 0RF ondansetron 4 mg Tablet,Disintegrating 4 mg PO Q6H PRN PRNQty: 30 0RF polyethylene glycol 3350 17 gram Powder In Packet 17 g PO BID Qty: 60 0RF prednisone 20 mg Tablet See Rx Instructions .ROUTE .COMPLEX Qty: 14 0RF Rx Instructions: 40 mg PO daily x 5 days, then 20 mg PO daily x 3 days, then 10 mg PO daily x 2 days, then stop. sennosides-docusate sodium [Colace 2-In-1] 8.6-50 mg Tablet 1 tab PO BID Qty: 60 0RF gabapentin 600 mg tablet 900 mg PO TID Qty: 150 0RF Label Comments: TAKE ONE TABLET BY MOUTH THREE TIMES A DAY pramipexole 0.5 mg tablet 1 mg PO DAILY@1700 Qty: 60 0RF Label Comments: TAKE ONE TABLET BY MOUTH 2 3 HOURS BEFORE BED hydromorphone [Dilaudid] 2 mg tablet 2 - 4 mg PO Q6H PRN (Reason: pain) Qty: 24 0RF naloxone [Narcan] 4 mg/actuation spray,non-aerosol 4 mg intranasal Q2-3M PRN (Reason: opioid overdose) Qty: 2 0RF Rx Instructions: spray 1 dose into ONE nostril; alternate nostrils w each dose until help arrives Trelegy Ellipta 200-62.5-25 mcg blister with device 1 inh INHALATION DAILY Label Comments: INHALE ONE PUFF BY MOUTH EVERY DAY DIRECTED benzonatate 100 MG capsule 100 mg PO Q8H PRN montelukast [Singulair] 10 MG tablet 10 mg PO DAILY fluticasone propionate [Flonase Allergy Relief] 9.9 ML spray,suspension 1 spray IN DIRECTED Label Comments: 1 spray each nostril BID Discharge Instructions Instructions: Influenza (ED), COPD (Chronic Obstructive Pulmonary Disease) (ED) Additional Instructions: Please monitor your oxygen saturation with your pulse oximeter at home. Continue with oxygen therapy at home, continue with nebs at home. Please return to the emergency department for any worsening symptoms. Medical Decision Making 62-year-old female history of COPD, home oxygen 2 L at night, presents with worsening shortness of breath cough nonproductive headache and hypoxia to the 60s to 70s on room air, improved to the 90s on 5 L nasal cannula. No peripheral edema, no chest pain, bilateral expiratory wheeze, speaking short sentences, tachypnea. Likely COPD exacerbation in the setting of viral illness versus bacterial pneumonia lower suspicion for ACS or PE. Dexamethasone, duo nebs, x- ray labs close reassessment of symptoms. 19: 45 patient resting more comfortably. Was able to down titrate patient's nasal cannula to 3 L. Patient able to lay flat without issue. Start empiric on azithromycin given COPD exacerbation. Patient is influenza positive. Patient has home oxygen tank/compressor and a pulse ox. Counseled to continue with O2 to maintain oxygen saturations between 90 and 95. Strict return precautions given for any worsening symptoms. Patient feels comfortable and would like to go home. HPI General Date/Time Provider Initiated Documentation: 08/03/22 16:55 . HPI Narrative: 62-year-old female history of COPD home oxygen at nighttime presents with cough nonproductive headache and shortness of breath over the past several days, saturating in the 60s to 70s on room air improved to the 90s on 5 L nasal cannula. Denies any recent hospitalizations or antibiotic use, denies prior intubation Related Data Home Medications Medication Instructions Recorded Confirmed albuterol sulfate 90 mcg/actuation 2 puff inhalation QID PRN 08/03/15 08/24/21 aerosol inhaler (Ventolin HFA) omeprazole magnesium 20 mg 20 mg PO PRN PRN 08/03/15 08/24/21 tablet,delayed release (Prilosec OTC) albuterol sulfate 2.5 mg/3 mL 2.5 mg (3 mL) inhalation Q4H PRN 08/06/15 08/24/21 (0.083 %) solution for nebulization PRN #30 mL dextromethorphan-guaifenesin 10 10 ml PO Q4H PRN PRN ##1 08/06/15 08/24/21 mg-100 mg/5 mL oral syrup benzonatate 100 mg capsule 100 mg PO Q8H PRN 04/06/17 08/24/21 fluticasone propionate 50 1 spray IN DIRECTED 04/06/17 08/24/21 mcg/actuation nasal spray,suspension (Flonase Allergy Relief) montelukast 10 mg tablet 10 mg PO DAILY 04/06/17 08/24/21 (Singulair) Oxygen 2l/Min 2 06/15/21 acidophilus 25 million 1 tab PO DAILY 06/15/21 08/24/21 cell-pectin, citrus 100 mg tablet aspirin 81 mg tablet,delayed 81 mg PO DAILY 06/15/21 08/24/21 release atorvastatin 20 mg tablet 20 mg PO DAILY 06/15/21 08/24/21 codeine 10 mg-guaifenesin 100 mg/5 5 ml PO Q6H PRN cough #120 mL 06/15/21 08/24/21 mL oral liquid (Guaifenesin AC) duloxetine 30 mg capsule,delayed 60 mg PO DAILY 06/15/21 08/24/21 release galcanezumab-gnlm 120 mg/mL 120 mg subcut Q30D 06/15/21 06/15/21 subcutaneous pen injector (Emgality Pen) lactulose 10 gram/15 mL oral 15 ml PO .2-3 TIMES DAILY 06/15/21 08/24/21 solution loratadine 10 mg tablet 10 mg PO DAILY 06/15/21 08/24/21 spironolactone 25 mg tablet 25 mg PO DAILY 06/15/21 08/24/21 vitamin B complex (Vitamins B 1 tab PO HS 06/15/21 08/24/21 Complex tablet) zolpidem 5 mg tablet 5 mg PO HS PRN PRN 06/15/21 08/24/21 acetylcysteine 600 mg capsule 600 mg PO QID 08/09/21 08/24/21 ascorbic acid (vitamin C) 500 mg 1,000 mg PO BID #120 tabs 08/18/21 08/24/21 tablet (Vitamin C) baclofen 10 mg tablet 10 mg PO TID PRN PRN #30 tabs 08/18/21 08/24/21 cholecalciferol (vitamin D3) 25 2,000 units PO DAILY #20 tabs 08/18/21 08/24/21 mcg (1,000 unit) tablet famotidine 20 mg tablet 20 mg PO BID #60 tabs 08/18/21 08/24/21 gabapentin 600 mg tablet 900 mg PO TID #150 tabs 08/18/21 08/24/21 guaifenesin 600 mg tablet, 600 mg PO BID #20 tabs 08/18/21 08/24/21 extended release 12 hr (Mucinex) ondansetron 4 mg disintegrating 4 mg PO Q6H PRN PRN #30 tabs 08/18/21 08/24/21 tablet polyethylene glycol 3350 17 gram 17 g PO BID #60 ea 08/18/21 08/24/21 oral powder packet pramipexole 0.5 mg tablet 1 mg PO DAILY@1700 #60 tabs 08/18/21 08/24/21 prednisone 20 mg tablet See Rx Instructions .Route 08/18/21 08/24/21 .COMPLEX #14 tabs sennosides 8.6 mg-docusate sodium 1 tab PO BID #60 tabs 08/18/21 08/24/21 50 mg tablet (Colace 2-In-1) hydromorphone 2 mg tablet 2 - 4 mg PO Q6H PRN pain #24 tabs 08/19/21 08/24/21 (Dilaudid) naloxone 4 mg/actuation nasal 4 mg intranasal Q2-3M PRN opioid 08/19/21 08/24/21 spray (Narcan) overdose #2 ea fluticasone fur. 200 mcg-umeclid 1 inh inhalation DAILY 08/24/21 08/24/21 62.5 mcg-vilant 25 mcg inhalat.powder (Trelegy Ellipta) azithromycin 250 mg tablet 250 mg PO DAILY 4 days #4 tabs 08/03/22 Previous Rx's Medication Instructions Recorded albuterol sulfate 2.5 mg/3 mL 2.5 mg (3 mL) inhalation Q4H PRN 08/06/15 (0.083 %) solution for nebulization PRN #30 mL dextromethorphan-guaifenesin 10 10 ml PO Q4H PRN PRN ##1 08/06/15 mg-100 mg/5 mL oral syrup codeine 10 mg-guaifenesin 100 mg/5 5 ml PO Q6H PRN cough #120 mL 06/15/21 mL oral liquid (Guaifenesin AC) ascorbic acid (vitamin C) 500 mg 1,000 mg PO BID #120 tabs 08/18/21 tablet (Vitamin C) baclofen 10 mg tablet 10 mg PO TID PRN PRN #30 tabs 08/18/21 cholecalciferol (vitamin D3) 25 2,000 units PO DAILY #20 tabs 08/18/21 mcg (1,000 unit) tablet famotidine 20 mg tablet 20 mg PO BID #60 tabs 08/18/21 gabapentin 600 mg tablet 900 mg PO TID #150 tabs 08/18/21 guaifenesin 600 mg tablet, 600 mg PO BID #20 tabs 08/18/21 extended release 12 hr (Mucinex) ondansetron 4 mg disintegrating 4 mg PO Q6H PRN PRN #30 tabs 08/18/21 tablet polyethylene glycol 3350 17 gram 17 g PO BID #60 ea 08/18/21 oral powder packet pramipexole 0.5 mg tablet 1 mg PO DAILY@1700 #60 tabs 08/18/21 prednisone 20 mg tablet See Rx Instructions .Route 08/18/21 .COMPLEX #14 tabs sennosides 8.6 mg-docusate sodium 1 tab PO BID #60 tabs 08/18/21 50 mg tablet (Colace 2-In-1) hydromorphone 2 mg tablet 2 - 4 mg PO Q6H PRN pain #24 tabs 08/19/21 (Dilaudid) naloxone 4 mg/actuation nasal 4 mg intranasal Q2-3M PRN opioid 08/19/21 spray (Narcan) overdose #2 ea azithromycin 250 mg tablet 250 mg PO DAILY 4 days #4 tabs 08/03/22 Allergies Allergy/AdvReac Type Severity Reaction Status Date / Time hydrocodone [From Vicodin] AdvReac Mild Unverified 08/24/21 15:21 acetaminophen AdvReac Has liver Unverified 08/24/21 15:21 disease-does not use codeine [Codeine] AdvReac VOMITING Unverified 08/24/21 15:21 ibuprofen AdvReac Has liver Unverified 08/24/21 15:21 disease does not use oxycodone HCl [From Percocet] AdvReac VOMITING Unverified 08/24/21 15:21 General Stated Complaint: SOB SHRUTHI: 3 Review of Systems Narrative: Review of Systems Constitutional: negative Eyes: negative ENT: negative Cardiovascular: negative Respiratory: Cough Gastrointestinal: negative : negative Musculoskeletal: negative Skin: negative Neurologic: negative Psych: negative PFSH All Active Problems (Updated 08/03/22 @ 19:48 by Dae Thomas MD) Acute exacerbation of chronic obstructive pulmonary disease (Acute) Influenza (Acute) Thrush, oral (Acute) Chronic respiratory failure with hypoxia (Chronic) COVID-19 (Acute) Restless leg syndrome (Acute) Acute exacerbation of chronic obstructive pulmonary disease (Acute) Lumbago with sciatica, right side (Acute) Medical History Anxiety CHF (congestive heart failure) COPD (chronic obstructive pulmonary disease) Kidney stones Migraine Multiple sclerosis Obstructive sleep apnea Surgical History H/O section History of hysterectomy History of knee surgery Hx of cholecystectomy S/P colectomy Social History Smoking/Tobacco Use Status: Former Tobacco Use Smoking risk assessment performed?: Yes Alcohol Intake: current Alcohol Intake frequency: holidays/special occasions only Drug use: Never Substance use type: does not use Do you feel safe at home: Yes Do you feel safe in your relationship?: Yes Exam Narrative Exam Narrative: Physical Examination General: alert, awake, cooperative, resting comfortably, no acute distress HEENT: normocephalic, atraumatic; PERRL, EOM intact, conjunctiva normal; no nasa l discharge; moist mucous membranes, oral and pharyngeal mucosa normal, tolerating secretions Neck: supple, trachea midline; full ROM Chest: normal to inspection Respiratory: Tachypnea, speaking in short sentences, expiratory wheeze bilaterally Cardiac: regular rate, regular rhythm, S1S2 intact, no murmurs rubs or gallops GI: abdomen soft, non-tender, non-distended; no palpable mass or hepato splenomegaly Skin: no lesions, rashes or trauma appreciated Neuro: AAOx3, normal speech, moving all extremities Extremities: No peripheral edema Psych: Appropriate mood and affect Course Vital Signs Vital signs: Vital Signs Temperature 36.2 C L 08/03/22 16:49 Pulse 94 H 08/03/22 16:49 Respiratory Rate 10 L 08/03/22 16:49 Blood Pressure 130/61 08/03/22 16:49 Pulse Oximetry 90 L 08/03/22 16:49 Temperature 36.2 C L 08/03/22 16:49 Temperature Source Temporal Artery Scan 08/03/22 16:49 Pulse 94 H 08/03/22 16:49 Respiratory Rate 10 L 08/03/22 16:49 Respiratory Effort Labored 08/03/22 16:58 Blood Pressure 130/61 08/03/22 16:49 Blood Pressure Position Sitting 08/03/22 16:49 Pulse Oximetry 90 L 08/03/22 16:49 Oxygen Delivery Method Nasal Cannula 08/03/22 16:49 Oxygen Flow Rate 2 08/03/22 16:49 Pain Level 10 08/03/22 16:49
[2022-08-03] MEDS: Dexamethasone 10 MG/ML VIAL IVP (17:11)
[2022-08-03] MEDS: Albuterol/Ipratropium 3 ML UPD VIAL 9 ML UPD (17:13)
[2022-08-03 17:26] VITALS: RESP 15
[2022-08-03 17:33] LABS: Abs Immature Grans 0.03 10^3/uL (0.0-0.06); Absolute Basophil Count 0.01 10^3/uL (0.0-0.2); Absolute Lymphocyte Count 0.65 10^3/uL (1.2-3.4); Absolute Monocyte Count 0.97 10^3/uL (0.1-0.8); Absolute Neutrophil Count 6.57 10^3/uL (1.2-6.7); Basophils % 0.1; HCT 43.6 % (36.0-46.0); HGB 14.3 g/dL (11.2-15.7); Immature Grans % 0.4; Lymphocytes % 7.9; MCH 31.2 pg (27.0-33.0); MCHC 32.8 % (32.0-36.0); MCV 95 fL (80-95); MPV 9.7 fL (8.0-11.0); Monocytes % 11.8; Neutrophils % 79.8; Platelet Count 205 10^3/uL (130-400); RBC 4.58 10^6/uL (3.93-5.22); RDW 12.6 % (11.7-14.6); RDW-SD 44.7 fL; WBC 8.23 10^3/uL (4.4-10.8)
[2022-08-03 17:45] LABS: ALT 101 U/L (14-59); AST 63 U/L (15-37); Albumin 3.7 g/dL (3.4-5.0); Alkaline Phosphatase 102 U/L (46-116); Anion Gap 3.4 mmol/L (3-11); BUN 16 mg/dL (7-18); Bilirubin, Total 0.5 mg/dL (0.2-1.0); CO2 37.6 mmol/L (21.0-32.0); CREATININE 0.9 mg/dL (0.55-1.02); Calcium 8.6 mg/dL (8.5-10.1); Chloride 96 mmol/L (98-107); Estimated GFR 72.28 (mL/min/1.73m2); Glucose 131 mg/dL (74-106); Potassium 3.6 mmol/L (3.5-5.1); Sodium 137 mmol/L (136-145); Total Protein 8.1 g/dL (6.4-8.2)
[2022-08-03 17:47] LABS: COVID-19 PCR Negative (Negative); Influenza A PCR Positive (Negative); Influenza B PCR Negative (Negative); RSV PCR Negative (Negative)
[2022-08-03 18:33] LABS: Source Nasopharynx
--- NOTE | 2022-08-03 18:55 | DI.VRAD_ITS ---
PROCEDURE INFORMATION: Exam: Portable XR Chest Exam date and time: 08/03/2022 6:13 PM Age: 62 years old Clinical indication: Cough and other: Copd TECHNIQUE: Imaging protocol: Portable radiologic exam of the chest. Views: 1 view. COMPARISON: 1. CR XR CHEST 2V PA LATERAL 06/29/2022 10:56 AM 2. XR PORTABLE CHEST AP 08/09/2021 6:[address] CHEST PE CTA 08/09/2021 9:40 PM FINDINGS: Lungs: Unremarkable. No consolidation. Pleural spaces: Unremarkable. No pleural effusion. No pneumothorax. Heart/Mediastinum: Unremarkable. No cardiomegaly. Bones/joints: Unremarkable. IMPRESSION: No acute findings. Dictated and Authenticated by: Hector Peters MD. Ordering:RELL Pearl MD
[2022-08-03] MEDS: Azithromycin 250 MG TAB 500 MG PO (19:51)
== END 2022-08-03 19:57 | disposition home or self-care (01) ==
LOC: ER 20:30
PROVIDERS: Emergency Provider Emergency Medicine; PCP Nurse Practitioner Family
DX: J44.1 Chronic obstructive pulmonary disease with (acute) exacerbation (principal); J10.1 Influenza due to other identified influenza virus with other respiratory manifestations; I50.9 Heart failure, unspecified; Z20.822 Contact with and (suspected) exposure to COVID-19
CPT/HCPCS: 80053; 87637; 93005; 96374; 99284; 71045; 85025; 93010; 99285; J1100; J7620

== ENCOUNTER 2022-08-09 09:39 | Emergency (ER) | payer MEDICAID, SELFPAY ==
[2022-08-09] VITALS (26 sets, daily range): BP systolic 105–147; BP diastolic 52–120; PULSE 72–118; RESP 13–32; TEMP 36.3; O2SAT 87–98
--- NOTE | 2022-08-09 09:45 | RT.EKG_ITS ---
APPROVED REPORT Exam: Resting ECG Reason for Exam: chest pressure Patient Location: E HR:87 bpm ECG Measurements Heart Rate 87 AXIS AR 190 P 80 QRSd 100 QRS 68 QT 342 T 74 QTc 411 Conclusion Sinus rhythm...normal P axis, V-rate 60- 99 Low voltage, precordial leads...precordial leads <1.0mV
--- NOTE | 2022-08-09 10:30 | RT.EKG_ITS ---
APPROVED REPORT Exam: Resting ECG Reason for Exam: chest pain Patient Location: E HR:89 bpm ECG Measurements Heart Rate 89 AXIS HI 192 P 91 QRSd 102 QRS 83 QT 374 T 87 QTc 455 Conclusion Sinus rhythm...normal P axis, V-rate 60- 99 Anteroseptal infarct, age indeterminate...Q >35mS, T neg, V1-V2
--- NOTE | 2022-08-09 10:52 | RESPIRATORY ---
Called to assess Patient. Patient on 4L NC Sp02 93%. Patient states she wears home oxygen at NOC x 2L. Patient breath sounds are coarse and diminished with few scattered wheezes.
[2022-08-09 10:56] LABS: Abs Immature Grans 0.06 10^3/uL (0.0-0.06); Absolute Basophil Count 0.03 10^3/uL (0.0-0.2); Absolute Lymphocyte Count 2.85 10^3/uL (1.2-3.4); Absolute Neutrophil Count 9.41 10^3/uL (1.2-6.7); Basophils % 0.2; HGB 15.3 g/dL (11.2-15.7); Immature Grans % 0.5; MCH 31.5 pg (27.0-33.0); MCV 93 fL (80-95); MPV 10.5 fL (8.0-11.0); Monocytes % 4.6; Neutrophils % 72.7; Platelet Count 222 10^3/uL (130-400); RBC 4.86 10^6/uL (3.93-5.22); RDW-SD 41.4 fL; WBC 12.95 10^3/uL (4.4-10.8)
[2022-08-09] MEDS: methylPREDNISolone SUCC 125 MG VIAL IVP (10:57)
--- NOTE | 2022-08-09 11:02 | DI.RAD_ITS ---
Exam(s) XR PORTABLE CHEST AP EXAM: XR PORTABLE CHEST AP CLINICAL HISTORY: flu, cough. TECHNIQUE: 2D digital imaging was performed. COMPARISON: No exams were available for comparison FINDINGS: Single AP portable view. Heart size is upper normal. The mediastinum is not widened. Right lung is clear. Slightly increased markings noted in left infrahilar region, possibly vascular. No evidence of pulmonary edema. No obvious pleural effusions. No pneumothorax. IMPRESSION: Subtle findings as above, possibly exaggerated by portable technique. Recommend nonportable PA and l ateral views when clinically possible. DATA REPOSITORY: RADIATION DOSE DELIVERED:
[2022-08-09] MEDS: Albuterol/Ipratropium 3 ML UPD VIAL UPD ×2 (11:08)
[2022-08-09 11:32] LABS: ALT 84 U/L (14-59); AST 31 U/L (15-37); Albumin 3.6 g/dL (3.4-5.0); Alkaline Phosphatase 108 U/L (46-116); Anion Gap 3.6 mmol/L (3-11); BUN 13 mg/dL (7-18); Bilirubin, Total 0.5 mg/dL (0.2-1.0); CO2 41.4 mmol/L (21.0-32.0); CREATININE 0.9 mg/dL (0.55-1.02); Chloride 92 mmol/L (98-107); Estimated GFR 72.28 (mL/min/1.73m2); Glucose 155 mg/dL (74-106); NT-proBNP 16 pg/mL (<300); Sodium 137 mmol/L (136-145); Total Protein 8.1 g/dL (6.4-8.2); Troponin I < 50 ng/L (<or=60)
[2022-08-09 11:34] LABS: Potassium 2.8 mmol/L (3.5-5.1)
[2022-08-09] MEDS: POTASSIUM CHLORIDE 20 MEQ/100 ML BAG 50 MEQ IVPB (11:47)
[2022-08-09] MEDS: Potassium Chloride 20 MEQ TABCR PO (12:43)
--- NOTE | 2022-08-09 13:44 | ED.GENADUL_ITS ---
Discharge Plan Disposition Patient Disposition: Home Condition: Stable Discharge Details Clinical Impression: COPD with acute exacerbation, Influenza, Hypokalemia Primary Care Provider: Paulina Alston ED Provider: Reinaldo Saldivar Home Meds and New Rx's Prescriptions: New doxycycline hyclate 100 mg tablet 100 mg PO BID Qty: 13 0RF prednisone 20 mg tablet 40 mg PO DAILY 4 Days Qty: 8 0RF No Action albuterol sulfate [Ventolin HFA] 200 PUFF HFA aerosol inhaler 2 puff Inhalation QID PRN Label Comments: VENTOLIN HFA 108 (90) BASE) MCG/ACT AERS omeprazole magnesium [Prilosec OTC] 20 MG tablet,delayed release (DR/EC) 20 mg PO PRN PRN dextromethorphan-guaifenesin 5 ML syrup 10 ml PO Q4H PRN PRNQty: 1 0RF albuterol sulfate 2.5 MG/3 ML solution for nebulization 2.5 mg Inhalation Q4H PRN PRNQty: 30 0RF Rx Instructions: via nebulizer duloxetine 30 mg capsule,delayed release(DR/EC) 60 mg PO DAILY Label Comments: TAKE ONE CAPSULE BY MOUTH EVERY DAY lactulose 10 gram/15 mL solution 15 ml PO .2-3 TIMES DAILY Label Comments: TAKE 15 MLS BY MOUTH 3 TIMES A DAY NEEDED GOAL IS 2 4 LOOSE BOWEL MOVEMENTS A DAY atorvastatin 20 mg tablet 20 mg PO DAILY Label Comments: TAKE ONE TABLET BY MOUTH EVERY DAY aspirin 81 mg Tablet,Delayed Release (Dr/Ec) 81 mg PO DAILY spironolactone 25 mg tablet 25 mg PO DAILY Label Comments: TAKE ONE TABLET BY MOUTH EVERY DAY vitamin B complex [Vitamins B Complex] Tablet 1 tab PO HS Label Comments: TAKE ONE TABLET BY MOUTH AT BEDTIME zolpidem 5 mg tablet 5 mg PO HS PRN PRN Label Comments: TAKE 1 TABLET BY MOUTH EVERY NIGHT NEEDED loratadine 10 mg tablet 10 mg PO DAILY Label Comments: TAKE ONE TABLET BY MOUTH EVERY DAY acidophilus-pectin, citrus 25 million cell -100 mg tablet 1 tab PO DAILY Label Comments: TAKE ONE TABLET BY MOUTH EVERY DAY Emgality Pen 120 mg/mL pen injector 120 mg SUBCUT Q30D Oxygen 2l/Min 2 codeine-guaifenesin [Guaifenesin AC] 10-100 mg/5 mL liquid 5 ml PO Q6H PRN (Reason: cough) Qty: 120 0RF acetylcysteine 600 mg capsule 600 mg PO QID Label Comments: TAKE ONE CAPSULE BY MOUTH FOUR TIMES A DAY ascorbic acid (vitamin C) [Vitamin C] 500 mg Tablet 1,000 mg PO BID Qty: 120 0RF baclofen 10 mg Tablet 10 mg PO TID PRN PRNQty: 30 0RF famotidine 20 mg Tablet 20 mg PO BID Qty: 60 0RF cholecalciferol (vitamin D3) 25 mcg (1,000 unit) Tablet 2,000 units PO DAILY Qty: 20 0RF guaifenesin [Mucinex] 600 mg Tablet Extended Release 12hr 600 mg PO BID Qty: 20 0RF ondansetron 4 mg Tablet,Disintegrating 4 mg PO Q6H PRN PRNQty: 30 0RF polyethylene glycol 3350 17 gram Powder In Packet 17 g PO BID Qty: 60 0RF prednisone 20 mg Tablet See Rx Instructions .ROUTE .COMPLEX Qty: 14 0RF Rx Instructions: 40 mg PO daily x 5 days, then 20 mg PO daily x 3 days, then 10 mg PO daily x 2 days, then stop. sennosides-docusate sodium [Colace 2-In-1] 8.6-50 mg Tablet 1 tab PO BID Qty: 60 0RF gabapentin 600 mg tablet 900 mg PO TID Qty: 150 0RF Label Comments: TAKE ONE TABLET BY MOUTH THREE TIMES A DAY pramipexole 0.5 mg tablet 1 mg PO DAILY@1700 Qty: 60 0RF Label Comments: TAKE ONE TABLET BY MOUTH 2 3 HOURS BEFORE BED hydromorphone [Dilaudid] 2 mg tablet 2 - 4 mg PO Q6H PRN (Reason: pain) Qty: 24 0RF naloxone [Narcan] 4 mg/actuation spray,non-aerosol 4 mg intranasal Q2-3M PRN (Reason: opioid overdose) Qty: 2 0RF Rx Instructions: spray 1 dose into ONE nostril; alternate nostrils w each dose until help arrives Heike Elliposiris 200-62.5-25 mcg blister with device 1 inh INHALATION DAILY Label Comments: INHALE ONE PUFF BY MOUTH EVERY DAY DIRECTED benzonatate 100 MG capsule 100 mg PO Q8H PRN montelukast [Singulair] 10 MG tablet 10 mg PO DAILY fluticasone propionate [Flonase Allergy Relief] 9.9 ML spray,suspension 1 spray IN DIRECTED Label Comments: 1 spray each nostril BID Discharge Instructions Instructions: Hypokalemia (ED), Influenza (ED), COPD (Chronic Obstructive Pulmonary Disease) (ED), Against Medical Advice (ED) Additional Instructions: You are choosing to leave AGAINST MEDICAL ADVICE. Diagnostic testing and treatment as recommended and you are refusing this. You understand that you may have light threatening or lifestyle modifying disease. Please return to the emerge department at any time for further work-up and treatment as recommended. Please call your doctor as soon as possible to arrange timely follow-up. Referrals: Paulina Alston [Primary Care Provider] - Medical Decision Making 62-year-old female with history of multilevel carotid including CHF, COPD, seen here on 08/03/2022 and diagnosed with influenza and COPD exacerbation. She completed course of azithromycin and continues to use nebulizer every 4 hours. She is here today with worsening shortness of breath and wheezing. She has dyspnea on exertion and some swelling of her lower extremities. Concern for acute COPD exacerbation versus CHF exacerbation versus pneumonia. Duoneb x2 was administered. Solumedrol IV given. Chest x-ray was interpreted by radiology: Subtle findings as above, possibly exaggerated by portable technique.? Recommend nonportable PA and lateral views when clinically possible. Plan to repeat chest x-ray. Patient with hypokalemia. Potassium 20 mg IV was given. I will give additional 20 local meds by mouth. Patient reassessed and continues to have wheeze and increased oxygen requiremen t. Now saturating well on 5 L. Plan for admission for further monitoring and treatment. Plan discussed with the patient who provided informed refusal and wishes to leave AGAINST MEDICAL ADVICE. I explained to the patient that her repeat chest x-ray was warranted and she does not wish to wait for additional diagnostics and is refusing additional treatment. I also explained that additional testing including fluid testing is pending. Patient again refuses to wait. I had a discussion with the patient about my diagnostic/treatment plan. She declines plan and wishes to leave against medical advise. I reiterated my concerns to the patient and explained the risks of leaving prior to completion of workup and treatment. I specifically emphasized the possibility of life- threatening or lifestyle modifying disease that would not be appropriately treated if they leave. Patient verbalized understanding of my concerns and the potential for life threatening or lifestyle modifying disease. Patient has capacity to make informed decision. I again explained my concerns and urged the patient to stay for treatment as outlined. She continued to refuse. I recommended that she follow-up with primary care physician CO[facility] or return to the Emergency Department at any time for further treatment. I will cover with doxycycline in case she has superimposed pneumonia. Lab Data Lab results reviewed: Yes I reviewed the patient's lab results. Labs: Laboratory Tests Range/Units 08/09/22 08/09/22 10:10 10:10 WBC (4.4-10.8) 10^3/uL 12.95 H RBC (3.93-5.22) 10^6/uL 4.86 Hgb (11.2-15.7) g/dL 15.3 Hct (36.0-46.0) % 45.0 MCV (80-95) fL 93 MCH (27.0-33.0) pg 31.5 MCHC (32.0-36.0) % 34.0 RDW (11.7-14.6) % 12.0 Plt Count (130-400) 10^3/uL 222 MPV (8.0-11.0) fL 10.5 Immature Gran % 0.5 Neutrophils % 72.7 Lymphocytes % 22.0 Monocytes % 4.6 Eosinophils % 0.0 Basophils % 0.2 Nucleated RBC % (0.0-0.3) % 0.0 Absolute Neutrophils (1.2-6.7) 10^3/uL 9.41 H Absolute Lymphocytes (1.2-3.4) 10^3/uL 2.85 Absolute Monocytes (0.1-0.8) 10^3/uL 0.60 Absolute Eosinophils (0.0-0.7) 10^3/uL 0.00 Absolute Basophils (0.0-0.2) 10^3/uL 0.03 Sodium (136-145) mmol/L 137 Potassium (3.5-5.1) mmol/L 2.8 L* Chloride (98-107) mmol/L 92 L Carbon Dioxide (21.0-32.0) mmol/L 41.4 H Anion Gap (3-11) mmol/L 3.6 BUN (7-18) mg/dL 13 Creatinine (0.55-1.02) mg/dL 0.9 Est GFR (CKD-EPI 2020) (mL/min/1.73m2) 72.28 Glucose (74-106) mg/dL 155 H Calcium (8.5-10.1) mg/dL 9.0 Total Bilirubin (0.2-1.0) mg/dL 0.5 AST (15-37) U/L 31 ALT (14-59) U/L 84 H Alkaline Phosphatase (46-116) U/L 108 Troponin I (<or=60) ng/L < 50 NT-Pro-B Natriuret Pep (<300) pg/mL 16 Total Protein (6.4-8.2) g/dL 8.1 Albumin (3.4-5.0) g/dL 3.6 HPI General Date/Time Provider Initiated Documentation: 08/09/22 10:03 . Limitations to Documentation: no limitations . Information obtained by: patient . HPI Narrative: 62-year-old female with multiple medical problems including history of CHF and COPD, here recently and diagnosed with acute COPD exacerbation and influenza. Was treated with course of azithromycin which she has completed. She notes persistent shortness of breath, dyspnea on exertion, and cough. She notes she chronically uses supplemental oxygen at night and she has been having to use this during the day. She has been using albuterol nebs every 4 hours. Shortness of breath is severe. She denies associated chest pain. She has had some dizziness. Related Data Home Medications Medication Instructions Recorded Confirmed albuterol sulfate 90 mcg/actuation 2 puff inhalation QID PRN 08/03/15 08/24/21 aerosol inhaler (Ventolin HFA) omeprazole magnesium 20 mg 20 mg PO PRN PRN 08/03/15 08/24/21 tablet,delayed release (Prilosec OTC) albuterol sulfate 2.5 mg/3 mL 2.5 mg (3 mL) inhalation Q4H PRN 08/06/15 08/24/21 (0.083 %) solution for nebulization PRN #30 mL dextromethorphan-guaifenesin 10 10 ml PO Q4H PRN PRN ##1 08/06/15 08/24/21 mg-100 mg/5 mL oral syrup benzonatate 100 mg capsule 100 mg PO Q8H PRN 04/06/17 08/24/21 fluticasone propionate 50 1 spray IN DIRECTED 04/06/17 08/24/21 mcg/actuation nasal spray,suspension (Flonase Allergy Relief) montelukast 10 mg tablet 10 mg PO DAILY 04/06/17 08/24/21 (Singulair) Oxygen 2l/Min 2 06/15/21 acidophilus 25 million 1 tab PO DAILY 06/15/21 08/24/21 cell-pectin, citrus 100 mg tablet aspirin 81 mg tablet,delayed 81 mg PO DAILY 06/15/21 08/24/21 release atorvastatin 20 mg tablet 20 mg PO DAILY 06/15/21 08/24/21 codeine 10 mg-guaifenesin 100 mg/5 5 ml PO Q6H PRN cough #120 mL 06/15/21 08/24/21 mL oral liquid (Guaifenesin AC) duloxetine 30 mg capsule,delayed 60 mg PO DAILY 06/15/21 08/24/21 release galcanezumab-gnlm 120 mg/mL 120 mg subcut Q30D 06/15/21 06/15/21 subcutaneous pen injector (Emgality Pen) lactulose 10 gram/15 mL oral 15 ml PO .2-3 TIMES DAILY 06/15/21 08/24/21 solution loratadine 10 mg tablet 10 mg PO DAILY 06/15/21 08/24/21 spironolactone 25 mg tablet 25 mg PO DAILY 06/15/21 08/24/21 vitamin B complex (Vitamins B 1 tab PO HS 06/15/21 08/24/21 Complex tablet) zolpidem 5 mg tablet 5 mg PO HS PRN PRN 06/15/21 08/24/21 acetylcysteine 600 mg capsule 600 mg PO QID 08/09/21 08/24/21 ascorbic acid (vitamin C) 500 mg 1,000 mg PO BID #120 tabs 08/18/21 08/24/21 tablet (Vitamin C) baclofen 10 mg tablet 10 mg PO TID PRN PRN #30 tabs 08/18/21 08/24/21 cholecalciferol (vitamin D3) 25 2,000 units PO DAILY #20 tabs 08/18/21 08/24/21 mcg (1,000 unit) tablet famotidine 20 mg tablet 20 mg PO BID #60 tabs 08/18/21 08/24/21 gabapentin 600 mg tablet 900 mg PO TID #150 tabs 08/18/21 08/24/21 guaifenesin 600 mg tablet, 600 mg PO BID #20 tabs 08/18/21 08/24/21 extended release 12 hr (Mucinex) ondansetron 4 mg disintegrating 4 mg PO Q6H PRN PRN #30 tabs 08/18/21 08/24/21 tablet polyethylene glycol 3350 17 gram 17 g PO BID #60 ea 08/18/21 08/24/21 oral powder packet pramipexole 0.5 mg tablet 1 mg PO DAILY@1700 #60 tabs 08/18/21 08/24/21 prednisone 20 mg tablet See Rx Instructions .Route 08/18/21 08/24/21 .COMPLEX #14 tabs sennosides 8.6 mg-docusate sodium 1 tab PO BID #60 tabs 08/18/21 08/24/21 50 mg tablet (Colace 2-In-1) hydromorphone 2 mg tablet 2 - 4 mg PO Q6H PRN pain #24 tabs 08/19/21 08/24/21 (Dilaudid) naloxone 4 mg/actuation nasal 4 mg intranasal Q2-3M PRN opioid 08/19/21 08/24/21 spray (Narcan) overdose #2 ea fluticasone fur. 200 mcg-umeclid 1 inh inhalation DAILY 08/24/21 08/24/21 62.5 mcg-vilant 25 mcg inhalat.powder (Trelegy Ellipta) doxycycline hyclate 100 mg tablet 100 mg PO BID #13 tabs 08/09/22 prednisone 20 mg tablet 40 mg PO DAILY 4 days #8 tabs 08/09/22 Previous Rx's Medication Instructions Recorded albuterol sulfate 2.5 mg/3 mL 2.5 mg (3 mL) inhalation Q4H PRN 08/06/15 (0.083 %) solution for nebulization PRN #30 mL dextromethorphan-guaifenesin 10 10 ml PO Q4H PRN PRN ##1 08/06/15 mg-100 mg/5 mL oral syrup codeine 10 mg-guaifenesin 100 mg/5 5 ml PO Q6H PRN cough #120 mL 06/15/21 mL oral liquid (Guaifenesin AC) ascorbic acid (vitamin C) 500 mg 1,000 mg PO BID #120 tabs 08/18/21 tablet (Vitamin C) baclofen 10 mg tablet 10 mg PO TID PRN PRN #30 tabs 08/18/21 cholecalciferol (vitamin D3) 25 2,000 units PO DAILY #20 tabs 08/18/21 mcg (1,000 unit) tablet famotidine 20 mg tablet 20 mg PO BID #60 tabs 08/18/21 gabapentin 600 mg tablet 900 mg PO TID #150 tabs 08/18/21 guaifenesin 600 mg tablet, 600 mg PO BID #20 tabs 08/18/21 extended release 12 hr (Mucinex) ondansetron 4 mg disintegrating 4 mg PO Q6H PRN PRN #30 tabs 08/18/21 tablet polyethylene glycol 3350 17 gram 17 g PO BID #60 ea 08/18/21 oral powder packet pramipexole 0.5 mg tablet 1 mg PO DAILY@1700 #60 tabs 08/18/21 prednisone 20 mg tablet See Rx Instructions .Route 08/18/21 .COMPLEX #14 tabs sennosides 8.6 mg-docusate sodium 1 tab PO BID #60 tabs 08/18/21 50 mg tablet (Colace 2-In-1) hydromorphone 2 mg tablet 2 - 4 mg PO Q6H PRN pain #24 tabs 08/19/21 (Dilaudid) naloxone 4 mg/actuation nasal 4 mg intranasal Q2-3M PRN opioid 08/19/21 spray (Narcan) overdose #2 ea doxycycline hyclate 100 mg tablet 100 mg PO BID #13 tabs 08/09/22 prednisone 20 mg tablet 40 mg PO DAILY 4 days #8 tabs 08/09/22 Allergies Allergy/AdvReac Type Severity Reaction Status Date / Time hydrocodone [From Vicodin] AdvReac Mild Unverified 08/24/21 15:21 acetaminophen AdvReac Has liver Unverified 08/24/21 15:21 disease-does not use codeine [Codeine] AdvReac VOMITING Unverified 08/24/21 15:21 ibuprofen AdvReac Has liver Unverified 08/24/21 15:21 disease does not use oxycodone HCl [From Percocet] AdvReac VOMITING Unverified 08/24/21 15:21 General Stated Complaint: RespSymp SHRUTHI: 3 Review of Systems All systems reviewed & are unremarkable except as noted in HPI and below Constitutional Constitutional: Denies fever(s) Cardiovascular Cardiovascular: Reports leg edema (Bilateral mild) and Reports dyspnea Respiratory Respiratory: Reports cough and Reports dyspnea PFSH All Active Problems (Updated 08/09/22 @ 13:58 by Reinaldo Saldivar MD) Acute exacerbation of chronic obstructive pulmonary disease (Acute) Influenza (Acute) COPD with acute exacerbation (Acute) Influenza (Acute) Hypokalemia (Acute) Thrush, oral (Acute) Chronic respiratory failure with hypoxia (Chronic) COVID-19 (Acute) Restless leg syndrome (Acute) Acute exacerbation of chronic obstructive pulmonary disease (Acute) Lumbago with sciatica, right side (Acute) Medical History Anxiety CHF (congestive heart failure) COPD (chronic obstructive pulmonary disease) Kidney stones Migraine Multiple sclerosis Obstructive sleep apnea Surgical History H/O section History of hysterectomy History of knee surgery Hx of cholecystectomy S/P colectomy Social History Smoking/Tobacco Use Status: Former Tobacco Use Smoking risk assessment performed?: Yes Alcohol Intake: never Drug use: Never Substance use type: does not use Do you feel safe at home: Yes Do you feel safe in your relationship?: Yes Exam Const General: cooperative Eyes Conjunctivae: normal conjunctivae Sclera: normal sclerae Neck Neck: trachea midline and supple Resp Effort & Inspection: cough, labored and tachypneic Auscultation: crackles bilaterally, diminished lung sounds bilaterally, no rhonchi and wheezes expiratory wheezes Cardio Rate: regular rate Rhythm: regular rhythm Heart Sounds: no murmurs GI Palpation: soft, not firm, no guarding, no masses, not rigid and nontender Skin General skin exam: no rashes or lesions noted Neuro General: patient alert, patient awake, patient oriented x3 and tone normal Extrem General: no calf tenderness and edema Laterality: bilateral (Trace lower legs) Psych Appearance: grossly normal Mental Status: mental status grossly normal Course Vital Signs Vital signs: Vital Signs Temperature 36.3 C L 08/09/22 09:52 Pulse 90 08/09/22 09:52 Respiratory Rate 20 08/09/22 09:52 Blood Pressure 123/93 H 08/09/22 09:52 Pulse Oximetry 90 L 08/09/22 09:52 Temperature 36.3 C L 08/09/22 09:52 Temperature Source Temporal Artery Scan 08/09/22 09:52 Pulse 92 H 08/09/22 11:31 Pulse 101 H 08/09/22 12:10 Respiratory Rate 13 08/09/22 12:10 Respiratory Effort Labored 08/09/22 10:13 Respiratory Depth Normal 08/09/22 10:13 Blood Pressure 105/52 L 08/09/22 11:31 Blood Pressure Mean 67 08/09/22 11:31 Blood Pressure Position Sitting 08/09/22 09:52 Pulse Oximetry 96 08/09/22 12:50 Oxygen Delivery Method Room Air 08/09/22 09:52 Oxygen Flow Rate 0 08/09/22 09:52 Lab/Test Results Lab/Test Results: Laboratory Tests Range/Units 08/09/22 08/09/22 10:10 10:10 WBC (4.4-10.8) 10^3/uL 12.95 H RBC (3.93-5.22) 10^6/uL 4.86 Hgb (11.2-15.7) g/dL 15.3 Hct (36.0-46.0) % 45.0 MCV (80-95) fL 93 MCH (27.0-33.0) pg 31.5 MCHC (32.0-36.0) % 34.0 RDW (11.7-14.6) % 12.0 Plt Count (130-400) 10^3/uL 222 MPV (8.0-11.0) fL 10.5 Immature Gran % 0.5 Neutrophils % 72.7 Lymphocytes % 22.0 Monocytes % 4.6 Eosinophils % 0.0 Basophils % 0.2 Nucleated RBC % (0.0-0.3) % 0.0 Absolute Neutrophils (1.2-6.7) 10^3/uL 9.41 H Absolute Lymphocytes (1.2-3.4) 10^3/uL 2.85 Absolute Monocytes (0.1-0.8) 10^3/uL 0.60 Absolute Eosinophils (0.0-0.7) 10^3/uL 0.00 Absolute Basophils (0.0-0.2) 10^3/uL 0.03 Sodium (136-145) mmol/L 137 Potassium (3.5-5.1) mmol/L 2.8 L* Chloride (98-107) mmol/L 92 L Carbon Dioxide (21.0-32.0) mmol/L 41.4 H Anion Gap (3-11) mmol/L 3.6 BUN (7-18) mg/dL 13 Creatinine (0.55-1.02) mg/dL 0.9 Est GFR (CKD-EPI 2020) (mL/min/1.73m2) 72.28 Glucose (74-106) mg/dL 155 H Calcium (8.5-10.1) mg/dL 9.0 Total Bilirubin (0.2-1.0) mg/dL 0.5 AST (15-37) U/L 31 ALT (14-59) U/L 84 H Alkaline Phosphatase (46-116) U/L 108 Troponin I (<or=60) ng/L < 50 NT-Pro-B Natriuret Pep (<300) pg/mL 16 Total Protein (6.4-8.2) g/dL 8.1 Albumin (3.4-5.0) g/dL 3.6
[2022-08-09 13:50] LABS: COVID-19 PCR Negative (Negative); Influenza A PCR Negative (Negative); Influenza B PCR Negative (Negative); RSV PCR Negative (Negative)
[2022-08-09 13:52] LABS: Source Nasopharynx
== END 2022-08-09 14:18 | disposition home or self-care (01) ==
PROVIDERS: Emergency Provider Student in an Organized Health Care Education/Training Program; PCP Nurse Practitioner Family
DX: J44.1 Chronic obstructive pulmonary disease with (acute) exacerbation (principal); J11.1 Influenza due to unidentified influenza virus with other respiratory manifestations; E87.6 Hypokalemia; I50.9 Heart failure, unspecified; Z53.29 Procedure and treatment not carried out because of patient's decision for other reasons; Z20.822 Contact with and (suspected) exposure to COVID-19
CPT/HCPCS: 36415; 80053; 87637; 93005; 96365; 96366; 96375; 99284; 71045; 83880; 84484; 85025; 93010; 99285; J2930; J3480; J7620

== ENCOUNTER 2022-08-10 10:59 | Outpatient (CLI) | payer MEDICAID, SELFPAY ==
[2022-08-10 11:45] LABS: Anion Gap 5.2 mmol/L (3-11); BUN 17 mg/dL (7-18); CO2 37.8 mmol/L (21.0-32.0); CREATININE 0.8 mg/dL (0.55-1.02); Chloride 97 mmol/L (98-107); Estimated GFR 83.26 (mL/min/1.73m2); Glucose 188 mg/dL (74-106); Potassium 3.8 mmol/L (3.5-5.1); Sodium 140 mmol/L (136-145)
== END 2022-08-10 11:00 | disposition home or self-care (01) ==
LOC: LBO 10:59
PROVIDERS: PCP Nurse Practitioner Family; Visit Provider Nurse Practitioner Family
DX: E87.6 Hypokalemia (principal)
CPT/HCPCS: 36415; 80048

== ENCOUNTER 2022-08-17 11:48 | Outpatient (REF) | payer MEDICAID, SELFPAY ==
[2022-08-17 12:14] LABS: Anion Gap 4.8 mmol/L (3-11); BUN 18 mg/dL (7-18); CO2 37.2 mmol/L (21.0-32.0); CREATININE 0.8 mg/dL (0.55-1.02); Calcium 8.9 mg/dL (8.5-10.1); Chloride 97 mmol/L (98-107); Estimated GFR 83.26 (mL/min/1.73m2); Glucose 247 mg/dL (74-106); Potassium 3.6 mmol/L (3.5-5.1); Sodium 139 mmol/L (136-145)
== END 2022-08-17 11:49 | disposition home or self-care (01) ==
LOC: LBN 11:48
PROVIDERS: PCP Nurse Practitioner Family; Visit Provider Nurse Practitioner Family
DX: E87.6 Hypokalemia (principal); E03.9 Hypothyroidism, unspecified; R73.01 Impaired fasting glucose
CPT/HCPCS: 80048

== ENCOUNTER 2022-08-25 11:51 | Outpatient (REF) | payer MEDICAID, SELFPAY ==
[2022-08-25 09:41] LABS: Bilirubin Negative (Negative); Blood Negative (Negative); Clarity Clear (Clear); Glucose Negative (Negative); Ketones Negative (Negative); Leukocyte Esterase Negative (Negative); Nitrite Negative (Negative); Urobilinogen 0.2 EU/dL (Up TO 0.2); pH 7.5 (5-8)
== END 2022-08-25 11:52 | disposition home or self-care (01) ==
LOC: NCHCN 11:51
PROVIDERS: PCP Nurse Practitioner Family; Visit Provider Family Medicine
DX: N39.0 Urinary tract infection, site not specified (principal)
CPT/HCPCS: 81003; 87086

== ENCOUNTER 2022-08-30 17:43 | Outpatient (REF) | payer MEDICAID, SELFPAY ==
[2022-08-30 21:13] LABS: BUN 14 mg/dL (7-18); CREATININE 0.9 mg/dL (0.55-1.02); Chloride 98 mmol/L (98-107); Estimated GFR 72.28 (mL/min/1.73m2); Glucose 189 mg/dL (74-106); Potassium 3.8 mmol/L (3.5-5.1); Sodium 139 mmol/L (136-145)
== END 2022-08-30 17:44 | disposition home or self-care (01) ==
LOC: NCHCN 17:43
PROVIDERS: PCP Nurse Practitioner Family; Visit Provider Nurse Practitioner Family
DX: E11.9 Type 2 diabetes mellitus without complications (principal); E87.6 Hypokalemia; E03.9 Hypothyroidism, unspecified
CPT/HCPCS: 80048

== ENCOUNTER 2022-09-13 16:45 | Outpatient (REF) | payer MEDICAID, SELFPAY ==
[2022-09-13 12:38] LABS: BUN 18 mg/dL (7-18); CREATININE 0.7 mg/dL (0.55-1.02); Calcium 9.3 mg/dL (8.5-10.1); Chloride 99 mmol/L (98-107); Estimated GFR 97.72 (mL/min/1.73m2); Glucose 128 mg/dL (74-106); Potassium 4.1 mmol/L (3.5-5.1); Sodium 138 mmol/L (136-145)
== END 2022-09-13 16:46 | disposition home or self-care (01) ==
LOC: LBN 16:45
PROVIDERS: PCP Nurse Practitioner Family; Visit Provider Nurse Practitioner Family
DX: K74.60 Unspecified cirrhosis of liver (principal); J96.11 Chronic respiratory failure with hypoxia; J44.9 Chronic obstructive pulmonary disease, unspecified; E03.9 Hypothyroidism, unspecified; E11.9 Type 2 diabetes mellitus without complications
CPT/HCPCS: 80048

== ENCOUNTER 2022-10-18 16:15 | Outpatient (REF) | payer MEDICAID, SELFPAY ==
[2022-10-25 14:50] LABS: Fentanyl Interpretation Positive.; Fentanyl by LC-MS/MS 0.3 ng/mL; Norfentanyl by LC-MS/MS 41.3 ng/mL
== END 2022-10-18 16:16 | disposition home or self-care (01) ==
LOC: NCHCN 16:15
PROVIDERS: PCP Nurse Practitioner Family; Visit Provider Nurse Practitioner Family
DX: R82.998 Other abnormal findings in urine (principal); R10.31 Right lower quadrant pain; M54.59 Other low back pain
CPT/HCPCS: 80354; 87086

== ENCOUNTER 2022-11-08 01:36 | Outpatient (CLI) | payer MEDICAID, SELFPAY ==
--- NOTE | 2022-11-08 13:45 | DI.US_ITS ---
Exam(s) US SOFT TISS ABD WALL/LOW BACK EXAM: US SOFT TISS ABD WALL/LOW BACK CLINICAL HISTORY: SOFT TISSUE MASS, M79.9. TECHNIQUE: Ultrasound was performed using standard protocol. COMPARISON: CT CT RENAL COLIC WO from 08/24/2021 FINDINGS: Sonographic assessment utilizing grayscale and color Doppler imaging was performed and targeted to th e area of clinical concern. There is a fat containing supraumbilical hernia measuring 1.9 transverse by 3.8 cm longitudinal. It is more prominent with the patient standing. IMPRESSION: Fat containing supraumbilical hernia. DATA REPOSITORY:
== END 2022-11-08 01:56 ==
LOC: DI 01:37
PROVIDERS: PCP Nurse Practitioner Family; Visit Provider Nurse Practitioner Family
DX: R22.2 Localized swelling, mass and lump, trunk (principal); K42.9 Umbilical hernia without obstruction or gangrene
CPT/HCPCS: 76705

== ENCOUNTER 2023-01-24 17:55 | Outpatient (REF) | payer MEDICAID, SELFPAY ==
[2023-01-24 14:32] LABS: Abs Immature Grans 0.03 10^3/uL (0.0-0.06); Absolute Basophil Count 0.03 10^3/uL (0.0-0.2); Absolute Lymphocyte Count 2.04 10^3/uL (1.2-3.4); Absolute Monocyte Count 0.63 10^3/uL (0.1-0.8); Absolute Neutrophil Count 6.95 10^3/uL (1.2-6.7); Basophils % 0.3; HCT 45.1 % (36.0-46.0); HGB 14.8 g/dL (11.2-15.7); Immature Grans % 0.3; Lymphocytes % 21.1; MCH 30.8 pg (27.0-33.0); MCHC 32.8 % (32.0-36.0); MCV 94 fL (80-95); MPV 10.3 fL (8.0-11.0); Monocytes % 6.5; Neutrophils % 71.8; Platelet Count 294 10^3/uL (130-400); RDW 12.9 % (11.7-14.6); RDW-SD 44.7 fL; WBC 9.68 10^3/uL (4.4-10.8)
[2023-01-24 15:40] LABS: ALT 82 U/L (14-59); AST 44 U/L (15-37); Albumin 3.8 g/dL (3.4-5.0); Alkaline Phosphatase 109 U/L (46-116); Anion Gap 5.3 mmol/L (3-11); BUN 13 mg/dL (7-18); Bilirubin, Total 0.4 mg/dL (0.2-1.0); CO2 35.7 mmol/L (21.0-32.0); CREATININE 0.9 mg/dL (0.55-1.02); Calcium 9.3 mg/dL (8.5-10.1); Chloride 98 mmol/L (98-107); Estimated GFR 72.28 (mL/min/1.73m2); Glucose 113 mg/dL (74-106); NT-proBNP 17 pg/mL (<300); Potassium 3.9 mmol/L (3.5-5.1); Sodium 139 mmol/L (136-145); TSH (W/Ref FT4) 2.47 uIU/mL (0.36-3.74)
== END 2023-01-24 17:56 | disposition home or self-care (01) ==
LOC: NCHCN 17:55
PROVIDERS: PCP Nurse Practitioner Family; Visit Provider Nurse Practitioner Family
DX: E11.9 Type 2 diabetes mellitus without complications (principal); F41.8 Other specified anxiety disorders; R14.0 Abdominal distension (gaseous); K74.60 Unspecified cirrhosis of liver; E03.9 Hypothyroidism, unspecified; R06.89 Other abnormalities of breathing
CPT/HCPCS: 80053; 83880; 84443; 85025

== ENCOUNTER 2023-02-08 15:44 | Emergency (ER) | payer MEDICAID, SELFPAY ==
[2023-02-08 15:57] VITALS: BP 116/97; PULSE 79; RESP 16; TEMP 36.6
--- NOTE | 2023-02-08 16:15 | DI.US_ITS ---
Exam(s) US LOWER EXTREMITY VENOUS LT EXAM: US LOWER EXTREMITY VENOUS LT CLINICAL HISTORY: leg swelling and pain 2 days TECHNIQUE: Left lower extremity venous ultrasound performed using grayscale, color-flow, and spectra l Doppler analysis. COMPARISON: No exams were available for comparison FINDINGS: The left common femoral, femoral and popliteal veins demonstrate normal compressibility, augmentation , and color Doppler. The posterior tibial and peroneal veins are patent. The saphenofemoral junction is unremarkable. There is no evidence of a Nino cyst. The soft tissues are unremarkable. IMPRESSION: 1. No evidence of a left lower extremity DVT. 2. Findings were discussed with the emergency department at 4:59 p.m. on 02/08/2023. DATA REPOSITORY:
--- NOTE | 2023-02-08 16:21 | ED.GENADUL_ITS ---
Discharge Plan Disposition Patient Disposition: Home Condition: Stable Discharge Details Clinical Impression: Localized swelling of left lower extremity, Cellulitis of left lower extremity, Hyperglycemia Primary Care Provider: Paulina Alston ED Provider: Reinaldo Saldivar Home Meds and New Rx's Prescriptions: New cephalexin 500 mg tablet 500 mg PO QID Qty: 39 0RF Continued albuterol sulfate [Ventolin HFA] 200 PUFF HFA aerosol inhaler 2 puff Inhalation QID PRN Patient Comments: VENTOLIN HFA 108 (90) BASE) MCG/ACT AERS omeprazole magnesium [Prilosec OTC] 20 MG tablet,delayed release (DR/EC) 20 mg PO PRN PRN dextromethorphan-guaifenesin 5 ML syrup 10 ml PO Q4H PRN PRNQty: 1 0RF albuterol sulfate 2.5 MG/3 ML solution for nebulization 2.5 mg Inhalation Q4H PRN PRNQty: 30 0RF Rx Instructions: via nebulizer duloxetine 30 mg capsule,delayed release(DR/EC) 60 mg PO DAILY Patient Comments: TAKE ONE CAPSULE BY MOUTH EVERY DAY lactulose 10 gram/15 mL solution 15 ml PO .2-3 TIMES DAILY Patient Comments: TAKE 15 MLS BY MOUTH 3 TIMES A DAY NEEDED GOAL IS 2 4 LOOSE BOWEL MOVEMENTS A DAY atorvastatin 20 mg tablet 20 mg PO DAILY Patient Comments: TAKE ONE TABLET BY MOUTH EVERY DAY aspirin 81 mg Tablet,Delayed Release (Dr/Ec) 81 mg PO DAILY spironolactone 25 mg tablet 25 mg PO DAILY Patient Comments: TAKE ONE TABLET BY MOUTH EVERY DAY vitamin B complex [Vitamins B Complex] Tablet 1 tab PO HS Patient Comments: TAKE ONE TABLET BY MOUTH AT BEDTIME zolpidem 5 mg tablet 5 mg PO HS PRN PRN Patient Comments: TAKE 1 TABLET BY MOUTH EVERY NIGHT NEEDED loratadine 10 mg tablet 10 mg PO DAILY Patient Comments: TAKE ONE TABLET BY MOUTH EVERY DAY acidophilus-pectin, citrus 25 million cell -100 mg tablet 1 tab PO DAILY Patient Comments: TAKE ONE TABLET BY MOUTH EVERY DAY Emgality Pen 120 mg/mL pen injector 120 mg SUBCUT Q30D Oxygen 2l/Min 2 codeine-guaifenesin [Guaifenesin AC] 10-100 mg/5 mL liquid 5 ml PO Q6H PRN (Reason: cough) Qty: 120 0RF acetylcysteine 600 mg capsule 600 mg PO QID Patient Comments: TAKE ONE CAPSULE BY MOUTH FOUR TIMES A DAY ascorbic acid (vitamin C) [Vitamin C] 500 mg Tablet 1,000 mg PO BID Qty: 120 0RF baclofen 10 mg Tablet 10 mg PO TID PRN PRNQty: 30 0RF famotidine 20 mg Tablet 20 mg PO BID Qty: 60 0RF cholecalciferol (vitamin D3) 25 mcg (1,000 unit) Tablet 2,000 units PO DAILY Qty: 20 0RF guaifenesin [Mucinex] 600 mg Tablet Extended Release 12hr 600 mg PO BID Qty: 20 0RF ondansetron 4 mg Tablet,Disintegrating 4 mg PO Q6H PRN PRNQty: 30 0RF polyethylene glycol 3350 17 gram Powder In Packet 17 g PO BID Qty: 60 0RF prednisone 20 mg Tablet See Rx Instructions .ROUTE .COMPLEX Qty: 14 0RF Rx Instructions: 40 mg PO daily x 5 days, then 20 mg PO daily x 3 days, then 10 mg PO daily x 2 days, then stop. sennosides-docusate sodium [Colace 2-In-1] 8.6-50 mg Tablet 1 tab PO BID Qty: 60 0RF gabapentin 600 mg tablet 900 mg PO TID Qty: 150 0RF Patient Comments: TAKE ONE TABLET BY MOUTH THREE TIMES A DAY pramipexole 0.5 mg tablet 1 mg PO DAILY@1700 Qty: 60 0RF Patient Comments: TAKE ONE TABLET BY MOUTH 2 3 HOURS BEFORE BED hydromorphone [Dilaudid] 2 mg tablet 2 - 4 mg PO Q6H PRN (Reason: pain) Qty: 24 0RF naloxone [Narcan] 4 mg/actuation spray,non-aerosol 4 mg intranasal Q2-3M PRN (Reason: opioid overdose) Qty: 2 0RF Rx Instructions: spray 1 dose into ONE nostril; alternate nostrils w each dose until help arrives Trelegy Ellipta 200-62.5-25 mcg blister with device 1 inh INHALATION DAILY Patient Comments: INHALE ONE PUFF BY MOUTH EVERY DAY DIRECTED benzonatate 100 MG capsule 100 mg PO Q8H PRN montelukast [Singulair] 10 MG tablet 10 mg PO DAILY fluticasone propionate [Flonase Allergy Relief] 9.9 ML spray,suspension 1 spray IN DIRECTED Patient Comments: 1 spray each nostril BID doxycycline hyclate 100 mg tablet 100 mg PO BID Qty: 13 0RF Discharge Instructions Instructions: Cellulitis (ED) Additional Instructions: Please contact your primary care physician to arrange follow-up. Call tomorrow. Take full course of antibiotic as prescribed. Keep leg elevated when possible. If symptoms do not improve or worsen over the next couple days, please return to the ER or see your primary care physician. Follow-up with podiatry regarding rash on the soles of your feet. Please be sure to discuss your elevated blood sugar with your primary care physician. Your blood sugar today was 191. This is too high. If remains elevated, you may need additional diagnostics and treatment. Return to the ER immediately for any worsening or new concerning symptoms. Referrals: Paulina Alston [Primary Care Provider] - Medical Decision Making 1630 --62-year-old female here with chief complaint of left lower leg swelling and pain over the past 2 days. Consider DVT. Plan to obtain ultrasound of the left lower extremity. 1800 --ultrasound of the left lower extremity was interpreted by radiology: No DVT. Suspect early cellulitis. Will initiate treatment with Keflex. Initial dose was given here in the emergency department. Patient does have fungal appearing rash bilateral soles. She has scheduled follow-up with podiatry. Blood sugar was mildly elevated today. Patient was informed of this. She was instructed to follow-up with PCP. HPI General Mode of arrival: ambulatory . Date/Time Provider Initiated Documentation: 02/08/23 16:09 . Limitations to Documentation: no limitations . Information obtained by: patient . HPI Narrative: 62yo female here with cc leg leg pain and swelling. Symptoms started 2 days ago. Worse since onset. No rash. No trauma. No fever. Related Data Home Medications Medication Instructions Recorded Confirmed albuterol sulfate 90 mcg/actuation 2 puff inhalation QID PRN 08/03/15 02/08/23 aerosol inhaler (Ventolin HFA) omeprazole magnesium 20 mg 20 mg PO PRN PRN 08/03/15 02/08/23 tablet,delayed release (Prilosec OTC) albuterol sulfate 2.5 mg/3 mL 2.5 mg (3 mL) inhalation Q4H PRN 08/06/15 02/08/23 (0.083 %) solution for nebulization PRN #30 mL dextromethorphan-guaifenesin 10 10 ml PO Q4H PRN PRN ##1 08/06/15 02/08/23 mg-100 mg/5 mL oral syrup benzonatate 100 mg capsule 100 mg PO Q8H PRN 04/06/17 02/08/23 fluticasone propionate 50 1 spray IN DIRECTED 04/06/17 02/08/23 mcg/actuation nasal spray,suspension (Flonase Allergy Relief) montelukast 10 mg tablet 10 mg PO DAILY 04/06/17 02/08/23 (Singulair) Oxygen 2l/Min 2 06/15/21 acidophilus 25 million 1 tab PO DAILY 06/15/21 02/08/23 cell-pectin, citrus 100 mg tablet aspirin 81 mg tablet,delayed 81 mg PO DAILY 06/15/21 02/08/23 release atorvastatin 20 mg tablet 20 mg PO DAILY 06/15/21 02/08/23 codeine 10 mg-guaifenesin 100 mg/5 5 ml PO Q6H PRN cough #120 mL 06/15/21 02/08/23 mL oral liquid (Guaifenesin AC) duloxetine 30 mg capsule,delayed 60 mg PO DAILY 06/15/21 02/08/23 release galcanezumab-gnlm 120 mg/mL 120 mg subcut Q30D 06/15/21 02/08/23 subcutaneous pen injector (Emgality Pen) lactulose 10 gram/15 mL oral 15 ml PO .2-3 TIMES DAILY 06/15/21 02/08/23 solution loratadine 10 mg tablet 10 mg PO DAILY 06/15/21 02/08/23 spironolactone 25 mg tablet 25 mg PO DAILY 06/15/21 02/08/23 vitamin B complex (Vitamins B 1 tab PO HS 06/15/21 02/08/23 Complex tablet) zolpidem 5 mg tablet 5 mg PO HS PRN PRN 06/15/21 02/08/23 acetylcysteine 600 mg capsule 600 mg PO QID 08/09/21 02/08/23 ascorbic acid (vitamin C) 500 mg 1,000 mg PO BID #120 tabs 08/18/21 02/08/23 tablet (Vitamin C) baclofen 10 mg tablet 10 mg PO TID PRN PRN #30 tabs 08/18/21 02/08/23 cholecalciferol (vitamin D3) 25 2,000 units PO DAILY #20 tabs 08/18/21 02/08/23 mcg (1,000 unit) tablet famotidine 20 mg tablet 20 mg PO BID #60 tabs 08/18/21 02/08/23 gabapentin 600 mg tablet 900 mg PO TID #150 tabs 08/18/21 02/08/23 guaifenesin 600 mg tablet, 600 mg PO BID #20 tabs 08/18/21 02/08/23 extended release 12 hr (Mucinex) ondansetron 4 mg disintegrating 4 mg PO Q6H PRN PRN #30 tabs 08/18/21 02/08/23 tablet polyethylene glycol 3350 17 gram 17 g PO BID #60 ea 08/18/21 02/08/23 oral powder packet pramipexole 0.5 mg tablet 1 mg PO DAILY@1700 #60 tabs 08/18/21 02/08/23 prednisone 20 mg tablet See Rx Instructions .Route 08/18/21 02/08/23 .COMPLEX #14 tabs sennosides 8.6 mg-docusate sodium 1 tab PO BID #60 tabs 08/18/21 02/08/23 50 mg tablet (Colace 2-In-1) hydromorphone 2 mg tablet 2 - 4 mg PO Q6H PRN pain #24 tabs 08/19/21 02/08/23 (Dilaudid) naloxone 4 mg/actuation nasal 4 mg intranasal Q2-3M PRN opioid 08/19/21 02/08/23 spray (Narcan) overdose #2 ea fluticasone fur. 200 mcg-umeclid 1 inh inhalation DAILY 08/24/21 02/08/23 62.5 mcg-vilant 25 mcg inhalat.powder (Trelegy Ellipta) doxycycline hyclate 100 mg tablet 100 mg PO BID #13 tabs 08/09/22 02/08/23 cephalexin 500 mg tablet 500 mg PO QID #39 tabs 02/08/23 Previous Rx's Medication Instructions Recorded albuterol sulfate 2.5 mg/3 mL 2.5 mg (3 mL) inhalation Q4H PRN 08/06/15 (0.083 %) solution for nebulization PRN #30 mL dextromethorphan-guaifenesin 10 10 ml PO Q4H PRN PRN ##1 08/06/15 mg-100 mg/5 mL oral syrup codeine 10 mg-guaifenesin 100 mg/5 5 ml PO Q6H PRN cough #120 mL 06/15/21 mL oral liquid (Guaifenesin AC) ascorbic acid (vitamin C) 500 mg 1,000 mg PO BID #120 tabs 08/18/21 tablet (Vitamin C) baclofen 10 mg tablet 10 mg PO TID PRN PRN #30 tabs 08/18/21 cholecalciferol (vitamin D3) 25 2,000 units PO DAILY #20 tabs 08/18/21 mcg (1,000 unit) tablet famotidine 20 mg tablet 20 mg PO BID #60 tabs 08/18/21 gabapentin 600 mg tablet 900 mg PO TID #150 tabs 08/18/21 guaifenesin 600 mg tablet, 600 mg PO BID #20 tabs 08/18/21 extended release 12 hr (Mucinex) ondansetron 4 mg disintegrating 4 mg PO Q6H PRN PRN #30 tabs 08/18/21 tablet polyethylene glycol 3350 17 gram 17 g PO BID #60 ea 08/18/21 oral powder packet pramipexole 0.5 mg tablet 1 mg PO DAILY@1700 #60 tabs 08/18/21 prednisone 20 mg tablet See Rx Instructions .Route 08/18/21 .COMPLEX #14 tabs sennosides 8.6 mg-docusate sodium 1 tab PO BID #60 tabs 08/18/21 50 mg tablet (Colace 2-In-1) hydromorphone 2 mg tablet 2 - 4 mg PO Q6H PRN pain #24 tabs 08/19/21 (Dilaudid) naloxone 4 mg/actuation nasal 4 mg intranasal Q2-3M PRN opioid 08/19/21 spray (Narcan) overdose #2 ea doxycycline hyclate 100 mg tablet 100 mg PO BID #13 tabs 08/09/22 cephalexin 500 mg tablet 500 mg PO QID #39 tabs 02/08/23 Allergies Allergy/AdvReac Type Severity Reaction Status Date / Time hydrocodone [From Vicodin] AdvReac Mild Unverified 02/08/23 16:03 oxycodone HCl [From Percocet] AdvReac Mild VOMITING Unverified 02/08/23 16:04 acetaminophen AdvReac Has liver Unverified 08/24/21 15:21 disease-does not use codeine [Codeine] AdvReac VOMITING Unverified 02/08/23 16:04 ibuprofen AdvReac Has liver Unverified 08/24/21 15:21 disease does not use General Stated Complaint: GenMedical SHRUTHI: 3 Review of Systems All systems reviewed & are unremarkable except as noted in HPI and below Constitutional Constitutional: Denies fever(s) PFSH All Active Problems (Updated 02/08/23 @ 18:23 by Reinaldo Saldivar MD) Localized swelling of left lower extremity (Acute) Cellulitis of left lower extremity (Acute) Hyperglycemia (Acute) Thrush, oral (Acute) Chronic respiratory failure with hypoxia (Chronic) COVID-19 (Acute) Restless leg syndrome (Acute) Acute exacerbation of chronic obstructive pulmonary disease (Acute) Lumbago with sciatica, right side (Acute) Medical History Anxiety CHF (congestive heart failure) COPD (chronic obstructive pulmonary disease) Kidney stones Migraine Multiple sclerosis Obstructive sleep apnea Surgical History H/O section History of hysterectomy History of knee surgery Hx of cholecystectomy S/P colectomy Social History Smoking/Tobacco Use Status: Former Tobacco Use Smoking risk assessment performed?: Yes Alcohol Intake: never Drug use: Never Substance use type: does not use Do you feel safe at home: Yes Do you feel safe in your relationship?: Yes Exam Const General: cooperative and no acute distress HENMT Mouth: moist mucous membranes Eyes Conjunctivae: normal conjunctivae Sclera: normal sclerae Neck Neck: trachea midline and supple Resp Auscultation: clear to auscultation bilaterally, no rales, no rhonchi and no wheezes Cardio Rate: regular rate and not tachycardic Rhythm: regular rhythm GI Palpation: soft, not firm, no guarding, no masses, not rigid and nontender Skin Rashes: rashes noted (scaly dry rash bilateral soles of feet) Extrem General: calf tenderness on the left and edema (1+ pitting up cuellar) Laterality: left Course Vital Signs Vital signs: Vital Signs Temperature 36.6 C 02/08/23 15:57 Pulse 79 02/08/23 15:57 Respiratory Rate 16 02/08/23 15:57 Blood Pressure 116/97 H 02/08/23 15:57 Temperature 36.6 C 02/08/23 15:57 Temperature Source Oral 02/08/23 15:57 Pulse 79 02/08/23 15:57 Respiratory Rate 16 02/08/23 15:57 Blood Pressure 116/97 H 02/08/23 15:57 Oxygen Delivery Method Room Air 02/08/23 15:57 Oxygen Flow Rate 0 02/08/23 15:57
[2023-02-08] MEDS: Cephalexin 500 MG CAP PO (18:33)
== END 2023-02-08 18:35 | disposition home or self-care (01) ==
PROVIDERS: Emergency Provider Student in an Organized Health Care Education/Training Program; PCP Nurse Practitioner Family
DX: R22.42 Localized swelling, mass and lump, left lower limb (principal); L03.116 Cellulitis of left lower limb; R73.9 Hyperglycemia, unspecified; J44.9 Chronic obstructive pulmonary disease, unspecified; Z99.81 Dependence on supplemental oxygen; Z79.82 Long term (current) use of aspirin
CPT/HCPCS: 99284; 93971

== ENCOUNTER 2023-06-13 02:57 | Outpatient (CLI) | payer MEDICAID, SELFPAY ==
[2023-06-13 16:32] LABS: Abs Immature Grans 0.03 10^3/uL (0.0-0.06); Absolute Basophil Count 0.02 10^3/uL (0.0-0.2); Absolute Monocyte Count 0.65 10^3/uL (0.1-0.8); Basophils % 0.2; HGB 14.6 g/dL (11.2-15.7); Immature Grans % 0.3; Lymphocytes % 25.3; MCH 31.1 pg (27.0-33.0); MCHC 33.2 % (32.0-36.0); MCV 94 fL (80-95); MPV 10.1 fL (8.0-11.0); Monocytes % 6.8; Neutrophils % 67.4; Platelet Count 232 10^3/uL (130-400); RBC 4.69 10^6/uL (3.93-5.22); RDW 12.7 % (11.7-14.6); RDW-SD 43.7 fL
[2023-06-13 17:19] LABS: ALT 61 U/L (14-59); AST 46 U/L (15-37); Albumin 3.2 g/dL (3.4-5.0); Alkaline Phosphatase 99 U/L (46-116); Anion Gap 6.6 mmol/L (3-11); BUN 27 mg/dL (7-18); Bilirubin, Total 0.6 mg/dL (0.2-1.0); CO2 32.4 mmol/L (21.0-32.0); CREATININE 0.9 mg/dL (0.55-1.02); Calcium 9.8 mg/dL (8.5-10.1); Chloride 97 mmol/L (98-107); Estimated GFR 71.83 (mL/min/1.73m2); Glucose 117 mg/dL (74-106); Magnesium 2.1 mg/dL (1.8-2.4); Sodium 136 mmol/L (136-145); Total Protein 8.2 g/dL (6.4-8.2); Uric Acid 8.4 mg/dL (2.6-6.0)
== END 2023-06-13 02:58 | disposition home or self-care (01) ==
LOC: LBO 02:57
PROVIDERS: PCP Nurse Practitioner Family; Visit Provider Student in an Organized Health Care Education/Training Program
DX: Z79.899 Other long term (current) drug therapy (principal)
CPT/HCPCS: 36415; 80053; 83735; 84550; 85025

== ENCOUNTER 2023-06-30 18:35 | Outpatient (CLI) | payer MEDICAID, SELFPAY ==
[2023-06-30 16:55] LABS: PTT Activated 24.5 sec (23.6-32.8); Prothrombin Time 9.7 sec (9.1-11.1)
== END 2023-06-30 18:36 | disposition home or self-care (01) ==
LOC: LBO 18:36
PROVIDERS: PCP Nurse Practitioner Family; Visit Provider Nurse Practitioner Family
DX: R04.0 Epistaxis (principal)
CPT/HCPCS: 36415; 85610; 85730

== ENCOUNTER 2023-07-14 01:35 | Outpatient (CLI) | payer MEDICAID, SELFPAY ==
[2023-07-14 16:05] LABS: Abs Immature Grans 0.03 10^3/uL (0.0-0.06); Absolute Basophil Count 0.01 10^3/uL (0.0-0.2); Absolute Lymphocyte Count 2.16 10^3/uL (1.2-3.4); Absolute Monocyte Count 0.73 10^3/uL (0.1-0.8); Absolute Neutrophil Count 6.05 10^3/uL (1.2-6.7); Basophils % 0.1; HCT 44.1 % (36.0-46.0); HGB 14.1 g/dL (11.2-15.7); Immature Grans % 0.3; Lymphocytes % 24.1; MCV 97 fL (80-95); MPV 10.3 fL (8.0-11.0); Monocytes % 8.1; Neutrophils % 67.4; Platelet Count 251 10^3/uL (130-400); RBC 4.55 10^6/uL (3.93-5.22); RDW-SD 46.5 fL; WBC 8.98 10^3/uL (4.4-10.8)
[2023-07-14 16:29] LABS: ALT 43 U/L (14-59); AST 26 U/L (15-37); Albumin 3.5 g/dL (3.4-5.0); Alkaline Phosphatase 106 U/L (46-116); Anion Gap 0.6 mmol/L (3-11); BUN 24 mg/dL (7-18); Bilirubin, Total 0.4 mg/dL (0.2-1.0); CO2 37.4 mmol/L (21.0-32.0); CREATININE 1.3 mg/dL (0.55-1.02); Calcium 9.5 mg/dL (8.5-10.1); Chloride 99 mmol/L (98-107); Estimated GFR 46.21 (mL/min/1.73m2); Glucose 114 mg/dL (74-106); Magnesium 2.3 mg/dL (1.8-2.4); Potassium 4.1 mmol/L (3.5-5.1); Sodium 137 mmol/L (136-145); Total Protein 8.4 g/dL (6.4-8.2); Uric Acid 8.4 mg/dL (2.6-6.0)
== END 2023-07-14 01:36 | disposition home or self-care (01) ==
PROVIDERS: PCP Nurse Practitioner Family; Visit Provider Student in an Organized Health Care Education/Training Program
DX: Z79.899 Other long term (current) drug therapy (principal)
CPT/HCPCS: 36415; 80053; 83735; 84550; 85025

== ENCOUNTER 2023-08-07 12:51 | Outpatient (CLI) | payer MEDICAID, SELFPAY ==
[2023-08-07 15:38] LABS: Abs Immature Grans 0.03 10^3/uL (0.0-0.06); Absolute Basophil Count 0.01 10^3/uL (0.0-0.2); Absolute Lymphocyte Count 1.58 10^3/uL (1.2-3.4); Absolute Monocyte Count 0.56 10^3/uL (0.1-0.8); Absolute Neutrophil Count 5.96 10^3/uL (1.2-6.7); Basophils % 0.1; HCT 41.6 % (36.0-46.0); HGB 13.4 g/dL (11.2-15.7); Immature Grans % 0.4; Lymphocytes % 19.4; MCHC 32.2 % (32.0-36.0); MCV 96 fL (80-95); MPV 9.8 fL (8.0-11.0); Monocytes % 6.9; Neutrophils % 73.2; Platelet Count 244 10^3/uL (130-400); RBC 4.32 10^6/uL (3.93-5.22); RDW 13.1 % (11.7-14.6); RDW-SD 46.5 fL; WBC 8.14 10^3/uL (4.4-10.8)
[2023-08-07 16:36] LABS: ALT 63 U/L (14-59); AST 36 U/L (15-37); Albumin 3.3 g/dL (3.4-5.0); Alkaline Phosphatase 93 U/L (46-116); Anion Gap 4.4 mmol/L (3-11); BUN 30 mg/dL (7-18); Bilirubin, Total 0.4 mg/dL (0.2-1.0); CO2 37.6 mmol/L (21.0-32.0); CREATININE 1.1 mg/dL (0.55-1.02); Calcium 9.4 mg/dL (8.5-10.1); Chloride 100 mmol/L (98-107); Estimated GFR 56.46 (mL/min/1.73m2); Glucose 115 mg/dL (74-106); Potassium 3.8 mmol/L (3.5-5.1); Sodium 142 mmol/L (136-145); Total Protein 7.9 g/dL (6.4-8.2)
== END 2023-08-07 12:52 | disposition home or self-care (01) ==
LOC: LBO 12:52
PROVIDERS: PCP Nurse Practitioner Family; Visit Provider Student in an Organized Health Care Education/Training Program
DX: Z79.899 Other long term (current) drug therapy (principal)
CPT/HCPCS: 36415; 80053; 83735; 85025

== ENCOUNTER 2023-09-14 16:52 | Emergency (ER) | payer MEDICARE, MEDICAID, SELFPAY ==
[2023-09-14 16:56] VITALS: PULSE 106; RESP 30; TEMP 38.1; O2SAT 88
--- NOTE | 2023-09-14 17:00 | DI.RAD_ITS ---
Exam(s) XR CHEST 2V PA LATERAL EXAM: XR CHEST 2V PA LATERAL CLINICAL HISTORY: cough, copd TECHNIQUE: 2D digital imaging was performed. COMPARISON: CR XR PORTABLE CHEST AP from 08/09/2022 FINDINGS: Exam limited by patient body habitus. AP view under penetrated. HEART: Normal size. Aorta: Not dilated. PULMONARY VASCULATURE: Normal. LUNGS: Clear. PLEURAL SPACE: No pleural effusion or pneumothorax. BONE:Unremarkable for age. Soft tissues: Unremarkable. IMPRESSION: No acute abnormality. DATA REPOSITORY: RADIATION DOSE DELIVERED:
[2023-09-14 17:01] VITALS: BP 151/105; PULSE 106; RESP 30; TEMP 38.1; O2SAT 92
[2023-09-14] MEDS: Albuterol/Ipratropium 3 ML UPD VIAL 9 ML UPD (17:06)
[2023-09-14] MEDS: Cephalexin 500 MG CAP PO (17:06)
[2023-09-14] MEDS: Dexamethasone 10 MG/ML VIAL PO (17:06)
--- NOTE | 2023-09-14 17:11 | ED.GENADUL_ITS ---
HPI General Date/Time Provider Initiated Documentation: 09/14/23 16:53 . HPI Narrative: 63-year-old female history of COPD presents with productive cough fever shortness of breath and increased oxygen demand at home. Ankle pain left greater than right with redness to left ankle over the last day Related Data Home Medications Medication Instructions Recorded Confirmed albuterol sulfate 90 mcg/actuation 2 puff inhalation QID PRN 08/03/15 09/14/23 aerosol inhaler (Ventolin HFA) omeprazole magnesium 20 mg 20 mg PO PRN PRN 08/03/15 09/14/23 tablet,delayed release (Prilosec OTC) albuterol sulfate 2.5 mg/3 mL 2.5 mg (3 mL) inhalation Q4H PRN 08/06/15 09/14/23 (0.083 %) solution for nebulization PRN #30 mL dextromethorphan-guaifenesin 10 10 ml PO Q4H PRN PRN ##1 08/06/15 09/14/23 mg-100 mg/5 mL oral syrup benzonatate 100 mg capsule 100 mg PO Q8H PRN 04/06/17 09/14/23 fluticasone propionate 50 1 spray IN DIRECTED 04/06/17 09/14/23 mcg/actuation nasal spray,suspension (Flonase Allergy Relief) montelukast 10 mg tablet 10 mg PO DAILY 04/06/17 09/14/23 (Singulair) Oxygen 2l/Min 2 inhalation PRN shortness of 06/15/21 breath acidophilus 25 million 1 tab PO DAILY 06/15/21 09/14/23 cell-pectin, citrus 100 mg tablet aspirin 81 mg tablet,delayed 81 mg PO DAILY 06/15/21 09/14/23 release atorvastatin 20 mg tablet 20 mg PO DAILY 06/15/21 09/14/23 codeine 10 mg-guaifenesin 100 mg/5 5 ml PO Q6H PRN cough #120 mL 06/15/21 09/14/23 mL oral liquid (Guaifenesin AC) duloxetine 30 mg capsule,delayed 60 mg PO DAILY 06/15/21 09/14/23 release galcanezumab-gnlm 120 mg/mL 120 mg subcut Q30D 06/15/21 09/14/23 subcutaneous pen injector (Emgality Pen) lactulose 10 gram/15 mL oral 15 ml PO .2-3 TIMES DAILY 06/15/21 09/14/23 solution loratadine 10 mg tablet 10 mg PO DAILY 06/15/21 09/14/23 spironolactone 25 mg tablet 25 mg PO DAILY 06/15/21 09/14/23 vitamin B complex (Vitamins B 1 tab PO HS 06/15/21 09/14/23 Complex tablet) zolpidem 5 mg tablet 5 mg PO HS PRN PRN 06/15/21 09/14/23 acetylcysteine 600 mg capsule 600 mg PO QID 08/09/21 09/14/23 ascorbic acid (vitamin C) 500 mg 1,000 mg (2 x 500 mg) PO BID #120 08/18/21 09/14/23 tablet (Vitamin C) tabs baclofen 10 mg tablet 10 mg PO TID PRN PRN #30 tabs 08/18/21 09/14/23 cholecalciferol (vitamin D3) 25 2,000 units PO DAILY #20 tabs 08/18/21 09/14/23 mcg (1,000 unit) tablet famotidine 20 mg tablet 20 mg PO BID #60 tabs 08/18/21 09/14/23 gabapentin 600 mg tablet 900 mg (1.5 x 600 mg) PO TID #150 08/18/21 09/14/23 tabs guaifenesin 600 mg tablet, 600 mg PO BID #20 tabs 08/18/21 09/14/23 extended release 12 hr (Mucinex) ondansetron 4 mg disintegrating 4 mg PO Q6H PRN PRN #30 tabs 08/18/21 09/14/23 tablet polyethylene glycol 3350 17 gram 17 g PO BID #60 ea 08/18/21 09/14/23 oral powder packet pramipexole 0.5 mg tablet 1 mg (2 x 0.5 mg) PO DAILY@1700 08/18/21 09/14/23 #60 tabs prednisone 20 mg tablet See Rx Instructions .Route 08/18/21 09/14/23 .COMPLEX #14 tabs sennosides 8.6 mg-docusate sodium 1 tab PO BID #60 tabs 08/18/21 09/14/23 50 mg tablet (Colace 2-In-1) hydromorphone 2 mg tablet 2 - 4 mg (1 - 2 x 2 mg) PO Q6H PRN 08/19/21 09/14/23 (Dilaudid) pain #24 tabs naloxone 4 mg/actuation nasal 4 mg intranasal Q2-3M PRN opioid 08/19/21 09/14/23 spray (Narcan) overdose #2 ea fluticasone fur. 200 mcg-umeclid 1 inh inhalation DAILY 08/24/21 09/14/23 62.5 mcg-vilant 25 mcg inhalat.powder (Trelegy Ellipta) doxycycline hyclate 100 mg tablet 100 mg PO BID #13 tabs 08/09/22 09/14/23 cephalexin 500 mg tablet 500 mg PO QID #39 tabs 02/08/23 09/14/23 cephalexin 500 mg capsule 500 mg PO QID 7 days #28 caps 09/14/23 Previous Rx's Medication Instructions Recorded albuterol sulfate 2.5 mg/3 mL 2.5 mg (3 mL) inhalation Q4H PRN 08/06/15 (0.083 %) solution for nebulization PRN #30 mL dextromethorphan-guaifenesin 10 10 ml PO Q4H PRN PRN ##1 08/06/15 mg-100 mg/5 mL oral syrup codeine 10 mg-guaifenesin 100 mg/5 5 ml PO Q6H PRN cough #120 mL 06/15/21 mL oral liquid (Guaifenesin AC) ascorbic acid (vitamin C) 500 mg 1,000 mg (2 x 500 mg) PO BID #120 08/18/21 tablet (Vitamin C) tabs baclofen 10 mg tablet 10 mg PO TID PRN PRN #30 tabs 08/18/21 cholecalciferol (vitamin D3) 25 2,000 units PO DAILY #20 tabs 08/18/21 mcg (1,000 unit) tablet famotidine 20 mg tablet 20 mg PO BID #60 tabs 08/18/21 gabapentin 600 mg tablet 900 mg (1.5 x 600 mg) PO TID #150 08/18/21 tabs guaifenesin 600 mg tablet, 600 mg PO BID #20 tabs 08/18/21 extended release 12 hr (Mucinex) ondansetron 4 mg disintegrating 4 mg PO Q6H PRN PRN #30 tabs 08/18/21 tablet polyethylene glycol 3350 17 gram 17 g PO BID #60 ea 08/18/21 oral powder packet pramipexole 0.5 mg tablet 1 mg (2 x 0.5 mg) PO DAILY@1700 08/18/21 #60 tabs prednisone 20 mg tablet See Rx Instructions .Route 08/18/21 .COMPLEX #14 tabs sennosides 8.6 mg-docusate sodium 1 tab PO BID #60 tabs 08/18/21 50 mg tablet (Colace 2-In-1) hydromorphone 2 mg tablet 2 - 4 mg (1 - 2 x 2 mg) PO Q6H PRN 08/19/21 (Dilaudid) pain #24 tabs naloxone 4 mg/actuation nasal 4 mg intranasal Q2-3M PRN opioid 08/19/21 spray (Narcan) overdose #2 ea doxycycline hyclate 100 mg tablet 100 mg PO BID #13 tabs 08/09/22 cephalexin 500 mg tablet 500 mg PO QID #39 tabs 02/08/23 cephalexin 500 mg capsule 500 mg PO QID 7 days #28 caps 09/14/23 Allergies Allergy/AdvReac Type Severity Reaction Status Date / Time hydrocodone [From Vicodin] AdvReac Mild Unverified 02/08/23 16:03 oxycodone HCl [From Percocet] AdvReac Mild VOMITING Unverified 02/08/23 16:04 acetaminophen AdvReac Has liver Unverified 08/24/21 15:21 disease-does not use codeine [Codeine] AdvReac VOMITING Unverified 02/08/23 16:04 ibuprofen AdvReac Has liver Unverified 08/24/21 15:21 disease does not use General Stated Complaint: RespSymp SHRUTHI: 3 Review of Systems Narrative: Review of Systems Constitutional: negative Eyes: negative ENT: negative Cardiovascular: negative Respiratory: Shortness of breath productive cough Gastrointestinal: negative : negative Musculoskeletal: negative Skin: Ankle pain Neurologic: negative Psych: negative Exam Narrative Exam Narrative: Physical Examination General: alert, awake, cooperative, resting comfortably, no acute distress HEENT: normocephalic, atraumatic; PERRL, EOM intact, conjunctiva normal; no nasal discharge; moist mucous membranes, oral and pharyngeal mucosa normal, tolerating secretions Neck: supple, trachea midline; full ROM Chest: normal to inspection Respiratory: normal respiratory effort, speaking in full sentences, expiratory wheeze and rhonchi bilaterally Cardiac: Tachycardia, regular rhythm, S1S2 intact, no murmurs rubs or gallops GI: abdomen soft, non-tender, non-distended; no palpable mass or hepatosplenomegaly Skin: Discrete area of erythema induration and warmth to medial left ankle tender to the touch no crepitus bulla or vesicles appreciated Neuro: AAOx3, normal speech, moving all extremities Extremities: Mild edema to bilateral ankles equal, range of motion of lower extremities intact no deformity Psych: Appropriate mood and affect Course Vital Signs Vital signs: Vital Signs Temperature 38.1 C H 09/14/23 16:56 Pulse 106 H 09/14/23 16:56 Respiratory Rate 30 H 09/14/23 16:56 Pulse Oximetry 88 L 09/14/23 16:56 Temperature 38.1 C H 09/14/23 17:01 Temperature Source Temporal Artery Scan 09/14/23 17:01 Pulse 106 H 09/14/23 17:01 Respiratory Rate 30 H 09/14/23 17:01 Respiratory Effort Short of Breath 09/14/23 17:01 Respiratory Depth Normal 09/14/23 17:01 Blood Pressure 151/105 H 09/14/23 17:01 Blood Pressure Position Sitting 09/14/23 17:01 Pulse Oximetry 92 09/14/23 17:01 Oxygen Delivery Method Nasal Cannula 09/14/23 17:01 Oxygen Flow Rate 0 09/14/23 16:56 Pain Level 10 09/14/23 17:01 Medical Decision Making 63-year-old female presents with fever productive cough shortness of breath inc reased oxygen demand, history of COPD, also redness and tenderness to left ankle, discrete area of erythema induration and warmth to medial aspect of left ankle, equal edema bilateral ankles, febrile on arrival. Patient has an allergy to acetaminophen and ibuprofen on her med list. Saturating 92% on 2 L nasal cannula. Rhonchi and expiratory wheeze bilaterally. High clinical suspicion for COPD exacerbation in the setting of viral URI versus pneumonia. Low suspicion for ACS CHF DVT PE. Ankle examination consistent with localized cellulitis. Will start empiric cephalexin. Will obtain screening x-ray, nebs steroids close reassessment of symptoms 18: 10 resting more comfortably after nebs and steroid, have added Lasix given peripheral edema bilaterally history of CHF, consider mixed COPD CHF exacerbation. Blood pressure down to 130s from 150s initially. Patient appears more comfortable. Will reassess 19: 08 patient resting comfortably feeling better after meds. Has oxygen at h ome and feels comfortable going home. Given home care instructions and return precautions. Quality:SDOH Health Related Social Needs: No Data to Display PFSH All Active Problems (Updated 09/14/23 @ 19:09 by Dae Thomas MD) COPD exacerbation (Acute) Cellulitis (Acute) Thrush, oral (Acute) Chronic respiratory failure with hypoxia (Chronic) COVID-19 (Acute) Restless leg syndrome (Acute) Acute exacerbation of chronic obstructive pulmonary disease (Acute) Lumbago with sciatica, right side (Acute) Medical History Anxiety CHF (congestive heart failure) COPD (chronic obstructive pulmonary disease) Kidney stones Migraine Multiple sclerosis Obstructive sleep apnea Surgical History H/O section History of hysterectomy History of knee surgery Hx of cholecystectomy S/P colectomy Social History Smoking/Tobacco Use Status: Former Tobacco Use Smoking risk assessment performed?: Yes Alcohol Intake: never Drug use: Never Substance use type: does not use Do you feel safe at home: Yes Do you feel safe in your relationship?: Yes Discharge Plan Disposition Patient Disposition: Home Condition: Improving Discharge Details Clinical Impression: Cellulitis, COPD exacerbation Primary Care Provider: Paulina Alston ED Provider: Dae Thomas Home Meds and New Rx's Prescriptions: New cephalexin 500 mg capsule 500 mg PO QID 7 Days Qty: 28 0RF No Action albuterol sulfate [Ventolin HFA] 200 PUFF HFA aerosol inhaler 2 puff Inhalation QID PRN Patient Comments: VENTOLIN HFA 108 (90) BASE) MCG/ACT AERS omeprazole magnesium [Prilosec OTC] 20 MG tablet,delayed release (DR/EC) 20 mg PO PRN PRN dextromethorphan-guaifenesin 5 ML syrup 10 ml PO Q4H PRN PRNQty: 1 0RF albuterol sulfate 2.5 MG/3 ML solution for nebulization 2.5 mg Inhalation Q4H PRN PRNQty: 30 0RF Rx Instructions: via nebulizer duloxetine 30 mg capsule,delayed release(DR/EC) 60 mg PO DAILY Patient Comments: TAKE ONE CAPSULE BY MOUTH EVERY DAY lactulose 10 gram/15 mL solution 15 ml PO .2-3 TIMES DAILY Patient Comments: TAKE 15 MLS BY MOUTH 3 TIMES A DAY NEEDED GOAL IS 2 4 LOOSE BOWEL MOVEMENTS A DAY atorvastatin 20 mg tablet 20 mg PO DAILY Patient Comments: TAKE ONE TABLET BY MOUTH EVERY DAY aspirin 81 mg Tablet,Delayed Release (Dr/Ec) 81 mg PO DAILY spironolactone 25 mg tablet 25 mg PO DAILY Patient Comments: TAKE ONE TABLET BY MOUTH EVERY DAY vitamin B complex [Vitamins B Complex] Tablet 1 tab PO HS Patient Comments: TAKE ONE TABLET BY MOUTH AT BEDTIME zolpidem 5 mg tablet 5 mg PO HS PRN PRN Patient Comments: TAKE 1 TABLET BY MOUTH EVERY NIGHT NEEDED loratadine 10 mg tablet 10 mg PO DAILY Patient Comments: TAKE ONE TABLET BY MOUTH EVERY DAY acidophilus-pectin, citrus 25 million cell -100 mg tablet 1 tab PO DAILY Patient Comments: TAKE ONE TABLET BY MOUTH EVERY DAY Emgality Pen 120 mg/mL pen injector 120 mg SUBCUT Q30D Oxygen 2l/Min 2 inhalation PRN (Reason: shortness of breath) codeine-guaifenesin [Guaifenesin AC] 10-100 mg/5 mL liquid 5 ml PO Q6H PRN (Reason: cough) Qty: 120 0RF acetylcysteine 600 mg capsule 600 mg PO QID Patient Comments: TAKE ONE CAPSULE BY MOUTH FOUR TIMES A DAY ascorbic acid (vitamin C) [Vitamin C] 500 mg Tablet 1,000 mg PO BID Qty: 120 0RF baclofen 10 mg Tablet 10 mg PO TID PRN PRNQty: 30 0RF famotidine 20 mg Tablet 20 mg PO BID Qty: 60 0RF cholecalciferol (vitamin D3) 25 mcg (1,000 unit) Tablet 2,000 units PO DAILY Qty: 20 0RF guaifenesin [Mucinex] 600 mg Tablet Extended Release 12hr 600 mg PO BID Qty: 20 0RF ondansetron 4 mg Tablet,Disintegrating 4 mg PO Q6H PRN PRNQty: 30 0RF polyethylene glycol 3350 17 gram Powder In Packet 17 g PO BID Qty: 60 0RF prednisone 20 mg Tablet See Rx Instructions .ROUTE .COMPLEX Qty: 14 0RF Rx Instructions: 40 mg PO daily x 5 days, then 20 mg PO daily x 3 days, then 10 mg PO daily x 2 days, then stop. sennosides-docusate sodium [Colace 2-In-1] 8.6-50 mg Tablet 1 tab PO BID Qty: 60 0RF gabapentin 600 mg tablet 900 mg PO TID Qty: 150 0RF Patient Comments: TAKE ONE TABLET BY MOUTH THREE TIMES A DAY pramipexole 0.5 mg tablet 1 mg PO DAILY@1700 Qty: 60 0RF Patient Comments: TAKE ONE TABLET BY MOUTH 2 3 HOURS BEFORE BED hydromorphone [Dilaudid] 2 mg tablet 2 - 4 mg PO Q6H PRN (Reason: pain) Qty: 24 0RF naloxone [Narcan] 4 mg/actuation spray,non-aerosol 4 mg intranasal Q2-3M PRN (Reason: opioid overdose) Qty: 2 0RF Rx Instructions: spray 1 dose into ONE nostril; alternate nostrils w each dose until help arrives Trelegy Ellipta 200-62.5-25 mcg blister with device 1 inh INHALATION DAILY Patient Comments: INHALE ONE PUFF BY MOUTH EVERY DAY DIRECTED benzonatate 100 MG capsule 100 mg PO Q8H PRN montelukast [Singulair] 10 MG tablet 10 mg PO DAILY fluticasone propionate [Flonase Allergy Relief] 9.9 ML spray,suspension 1 spray IN DIRECTED Patient Comments: 1 spray each nostril BID doxycycline hyclate 100 mg tablet 100 mg PO BID Qty: 13 0RF cephalexin 500 mg tablet 500 mg PO QID Qty: 39 0RF Discharge Instructions Instructions: Cellulitis (ED), COPD (Chronic Obstructive Pulmonary Disease) (ED) Additional Instructions: Please continue with albuterol at home. Take antibiotics as prescribed. Return to the emergency department for any worsening symptoms.
[2023-09-14] MEDS: Acetaminophen 500 MG TAB 1000 MG PO (18:06)
[2023-09-14] MEDS: Furosemide 100 MG/10 ML VIAL 80 MG IVP (18:08)
--- NOTE | 2023-09-14 20:05 | DI.VRAD_ITS ---
PROCEDURE INFORMATION: Exam: XR Chest Exam date and time: 09/14/2023 5:38 PM Age: 63 years old Clinical indication: Cough; Additional info: Cough, copd TECHNIQUE: Imaging protocol: Radiologic exam of the chest. Views: 2 views. COMPARISON: CR XR PORTABLE CHEST AP 08/09/2022 10:38 AM FINDINGS: Lungs: Moderate to severe hyperinflation suggesting underlying COPD. No acute infiltrates or consolidation. Pleural spaces: No pleural effusion. Heart/Mediastinum: Normal heart size. Bones/joints: No acute skeletal change. Thoracic spine degenerative features. IMPRESSION: Hyperinflation consistent with underlying emphysema/COPD. No acute infiltrates. Dictated and Authenticated by: James Barkley MD. Ordering:RELL Pearl MD
== END 2023-09-14 19:25 | disposition home or self-care (01) ==
PROVIDERS: Emergency Provider Emergency Medicine; PCP Nurse Practitioner Family
DX: J44.1 Chronic obstructive pulmonary disease with (acute) exacerbation (principal); L03.116 Cellulitis of left lower limb; G35 Multiple sclerosis; I50.9 Heart failure, unspecified; Z11.52 Encounter for screening for COVID-19; Z79.82 Long term (current) use of aspirin; Z99.81 Dependence on supplemental oxygen; Z87.891 Personal history of nicotine dependence
CPT/HCPCS: 94640; 99284; 71046; J1100; J1940; J7620

== ENCOUNTER 2023-11-07 16:06 | Outpatient (REF) | payer MEDICARE, MEDICAID, SELFPAY ==
[2023-11-07 21:08] LABS: Hemoglobin A1C 11.2 % (<5.7)
== END 2023-11-07 16:07 | disposition home or self-care (01) ==
LOC: NCHCN 16:06
PROVIDERS: PCP Nurse Practitioner Family; Visit Provider Nurse Practitioner Family
DX: E11.9 Type 2 diabetes mellitus without complications (principal)
CPT/HCPCS: 83036

== ENCOUNTER 2023-11-16 11:14 | Emergency (ER) | payer MEDICARE, MEDICAID, SELFPAY ==
[2023-11-16] VITALS (11 sets, daily range): BP systolic 125–143; BP diastolic 64–91; PULSE 82–93; RESP 15–31; TEMP 36.6; O2SAT 88–95
--- NOTE | 2023-11-16 11:30 | DI.RAD_ITS ---
Exam(s) XR PORTABLE CHEST AP EXAM: XR PORTABLE CHEST AP CLINICAL HISTORY: SOB, CP TECHNIQUE: 2D digital imaging was performed. COMPARISON: CR,XR XR CHEST 2V PA LATERAL from 09/14/2023 FINDINGS: Exam is limited by under penetration at the lung bases an overlying monitoring leads. The lungs are also not well inflated. LUNGS: Clear. No pleural abnormality seen. HEART: Normal size. AORTA: Normal diameter. BONES: Unremarkable for age. Soft tissues: Unremarkable. IMPRESSION: Limited exam. No acute findings. DATA REPOSITORY: RADIATION DOSE DELIVERED:
--- NOTE | 2023-11-16 11:30 | RT.EKG_ITS ---
APPROVED REPORT Exam: Resting ECG Reason for Exam: Chest Pain, SOB Patient Location: E HR:88 bpm ECG Measurements Heart Rate 88 AXIS MA 187 P 78 QRSd 100 QRS 72 QT 373 T 82 QTc 451 Conclusion Sinus rhythm...normal P axis, V-rate 60- 99 Anterior infarct, age indeterminate...Q >35mS, T neg, in V2-V5 Normal sinus rhythm at a rate of 88 with interventricular conduction delay and a QRS of 100 ms. MA a nd QTc within normal limits. Normal axis. No ST segment abnormalities. T wave inversions in V2. C ompared to prior dated 2 years ago T wave inversion in V2 is persistent.
--- NOTE | 2023-11-16 11:37 | ED.GENADUL_ITS ---
Discharge Plan Disposition Patient Disposition: Home Condition: Stable Discharge Details Clinical Impression: Bilateral cellulitis of lower leg Primary Care Provider: Paulina Alston ED Provider: Viky Orellana [place] Meds and New Rx's Prescriptions: New cephalexin 500 mg capsule 500 mg PO BID 10 Days Qty: 20 0RF Rx Instructions: Take 1 tablet twice daily by mouth for 10 days Continued omeprazole magnesium [Prilosec OTC] 20 MG tablet,delayed release (DR/EC) 20 mg PO PRN PRN albuterol sulfate 2.5 MG/3 ML solution for nebulization 2.5 mg Inhalation Q4H PRN PRNQty: 30 0RF Rx Instructions: via nebulizer atorvastatin 20 mg tablet 20 mg PO HS Patient Comments: TAKE ONE TABLET BY MOUTH EVERY DAY aspirin 81 mg Tablet,Delayed Release (Dr/Ec) 81 mg PO DAILY spironolactone 25 mg tablet 25 mg PO DAILY Patient Comments: TAKE ONE TABLET BY MOUTH EVERY DAY vitamin B complex [Vitamins B Complex] Tablet 1 tab PO HS Patient Comments: TAKE ONE TABLET BY MOUTH AT BEDTIME loratadine 10 mg tablet 10 mg PO DAILY Patient Comments: TAKE ONE TABLET BY MOUTH EVERY DAY acidophilus-pectin, citrus 25 million cell -100 mg tablet 1 tab PO DAILY Patient Comments: TAKE ONE TABLET BY MOUTH EVERY DAY Oxygen 2l/Min 2 inhalation PRN (Reason: shortness of breath) acetylcysteine 600 mg capsule 600 mg PO QID Patient Comments: TAKE ONE CAPSULE BY MOUTH FOUR TIMES A DAY ascorbic acid (vitamin C) [Vitamin C] 500 mg Tablet 1,000 mg PO BID Qty: 120 0RF cholecalciferol (vitamin D3) 25 mcg (1,000 unit) Tablet 2,000 units PO DAILY Qty: 20 0RF polyethylene glycol 3350 17 gram Powder In Packet 17 g PO BID Qty: 60 0RF sennosides-docusate sodium [Colace 2-In-1] 8.6-50 mg Tablet 1 tab PO BID Qty: 60 0RF pramipexole 0.5 mg tablet 1 mg PO DAILY@1700 Qty: 60 0RF Patient Comments: TAKE ONE TABLET BY MOUTH 2 3 HOURS BEFORE BED naloxone [Narcan] 4 mg/actuation spray,non-aerosol 4 mg intranasal Q2-3M PRN (Reason: opioid overdose) Qty: 2 0RF Rx Instructions: spray 1 dose into ONE nostril; alternate nostrils w each dose until help arrives Heike Martini 200-62.5-25 mcg blister with device 1 inh INHALATION DAILY Patient Comments: INHALE ONE PUFF BY MOUTH EVERY DAY DIRECTED montelukast [Singulair] 10 MG tablet 10 mg PO DAILY fluticasone propionate [Flonase Allergy Relief] 9.9 ML spray,suspension 1 spray IN DIRECTED Patient Comments: 1 spray each nostril BID betamethasone, augmented 0.05 % ointment 1 applic TOPICAL PRN Patient Comments: APPLY TO AFFECTED AREAS ON THE TRUNK AND EXTREMITIES TWO TIMES A DAY FOR 2 WEEKS; TAKE 1 WEEK OFF, THEN REPEAT CYCLE NEEDED Breztri Aerosphere 160-9-4.8 mcg/actuation HFA aerosol inhaler 2 inh inhalation BID ciclopirox 0.77 % cream 1 applic TOPICAL BID Patient Comments: APPLY TO AFFECTED AREA(S) TWO TIMES A DAY clotrimazole 1 % cream 1 applic topical ONCE lactulose [Constulose] 10 gram/15 mL solution 10 g PO DAILY cyclosporine 100 mg capsule 100 mg PO BID (DME) Prevail Underwear Misc MISCELLANEOUS Patient Comments: USE FOUR TIMES A DAY DIRECTED ipratropium-albuterol 0.5 mg-3 mg(2.5 mg base)/3 mL solution for nebulization 3 ml inhalation QID PRN dapagliflozin propanediol [Farxiga] 5 mg tablet 5 mg PO QAM Patient Comments: TAKE ONE TABLET BY MOUTH EVERY MORNING Fasenra Pen 30 mg/mL auto-injector 30 mg subcut ONCE famotidine [Pepcid] 40 mg tablet 80 mg PO BID magnesium oxide 400 mg magnesium capsule 400 mg PO BID pregabalin 150 mg capsule 150 mg PO BID Patient Comments: TAKE ONE CAPSULE BY MOUTH TWICE A DAY betamethasone dipropionate 0.05 % cream TOPICAL DAILY Patient Comments: APPLY A SMALL AMOUNT TO AFFECTED AREA(S) TWO TIMES A DAY NEEDED Discharge Instructions Instructions: Cellulitis (ED) Additional Instructions: Please take the antibiotic twice a day as directed with yogurt or probiotic. No evidence of pneumonia or abnormality on the x-rays. No evidence for blood clots in your legs on ultrasound. Your labs are largely within normal limits and at baseline. They are significantly unchanged from previous lab results. Follow up with primary care provider in 3-5 days. Return to ED sooner if any worsening or concerns. Please continue to take the baclofen that was previously prescribed for your leg cramps. Referrals: Paulina Alston [Primary Care Provider] - 5 days Discharge Data Discharge Date/Time-TO BE ENTERED AT DEPARTURE: 11/16/23 14:14 HPI General Mode of arrival: wheelchair . Date/Time Provider Initiated Documentation: 11/16/23 11:27 . Limitations to Documentation: physical limitation . Information obtained by: patient, family, RN notes reviewed and old records reviewed . HPI Narrative: 63-year-old female with past medical history of COPD, obesity, CHF anxiety migraines multiple sclerosis and obstructive sleep apnea presents to the ER with a chief complaint of increased swelling to her bilateral lower extremities. She reports that they are painful and red. She is having a coughing fit on my initial examination and having trouble speaking in full sentences. She also endorses chest pain. She does normally wear oxygen at home and is wearing oxygen at this time. She has been coughing up frothy white sputum. She also reports a low-grade fever. She is on 80 mg of Lasix twice daily which she reports taking those as directed. She also reports cramps in her legs. She does have some expiratory rhonchi on auscultation of her left upper lobe. Related Data Home Medications Medication Instructions Recorded Confirmed omeprazole magnesium 20 mg 20 mg PO PRN PRN 08/03/15 11/16/23 tablet,delayed release (Prilosec OTC) albuterol sulfate 2.5 mg/3 mL 2.5 mg (3 mL) inhalation Q4H PRN 08/06/15 11/16/23 (0.083 %) solution for nebulization PRN #30 mL fluticasone propionate 50 1 spray IN DIRECTED 04/06/17 11/16/23 mcg/actuation nasal spray,suspension (Flonase Allergy Relief) montelukast 10 mg tablet 10 mg PO DAILY 04/06/17 11/16/23 (Singulair) Oxygen 2l/Min 2 inhalation PRN shortness of 06/15/21 breath acidophilus 25 million 1 tab PO DAILY 06/15/21 11/16/23 cell-pectin, citrus 100 mg tablet aspirin 81 mg tablet,delayed 81 mg PO DAILY 06/15/21 11/16/23 release atorvastatin 20 mg tablet 20 mg PO HS 06/15/21 11/16/23 loratadine 10 mg tablet 10 mg PO DAILY 06/15/21 11/16/23 spironolactone 25 mg tablet 25 mg PO DAILY 06/15/21 11/16/23 vitamin B complex (Vitamins B 1 tab PO HS 06/15/21 11/16/23 Complex tablet) acetylcysteine 600 mg capsule 600 mg PO QID 08/09/21 11/16/23 ascorbic acid (vitamin C) 500 mg 1,000 mg (2 x 500 mg) PO BID #120 08/18/21 11/16/23 tablet (Vitamin C) tabs cholecalciferol (vitamin D3) 25 2,000 units PO DAILY #20 tabs 08/18/21 11/16/23 mcg (1,000 unit) tablet polyethylene glycol 3350 17 gram 17 g PO BID #60 ea 08/18/21 11/16/23 oral powder packet pramipexole 0.5 mg tablet 1 mg (2 x 0.5 mg) PO DAILY@1700 08/18/21 11/16/23 #60 tabs sennosides 8.6 mg-docusate sodium 1 tab PO BID #60 tabs 08/18/21 11/16/23 50 mg tablet (Colace 2-In-1) naloxone 4 mg/actuation nasal 4 mg intranasal Q2-3M PRN opioid 08/19/21 11/16/23 spray (Narcan) overdose #2 ea fluticasone fur. 200 mcg-umeclid 1 inh inhalation DAILY 08/24/21 11/16/23 62.5 mcg-vilant 25 mcg inhalat.powder (Trelegy Ellipta) benralizumab 30 mg/mL subcutaneous 30 mg subcut ONCE 11/16/23 11/16/23 auto-injector (Fasenra Pen) betamethasone dipropionate 0.05 % applic topical DAILY 11/16/23 topical cream betamethasone, augmented 0.05 % 1 applic topical PRN 11/16/23 11/16/23 topical ointment budesonide 160 mcg-glycopyr 9 2 inh inhalation BID 11/16/23 11/16/23 mcg-formot 4.8 mcg/actuation HFA inhaler (Breztri Inimex Pharmaceuticalsphere) cephalexin 500 mg capsule 500 mg PO BID Cellulitis 10 days 11/16/23 #20 caps ciclopirox 0.77 % topical cream 1 applic topical BID 11/16/23 11/16/23 clotrimazole 1 % topical cream 1 applic topical ONCE 11/16/23 11/16/23 cyclosporine 100 mg capsule 100 mg PO BID 11/16/23 11/16/23 dapagliflozin propanediol 5 mg 5 mg PO QAM 11/16/23 11/16/23 tablet (Farxiga) diaper,brief,adult,disposable 11/16/23 11/16/23 (Prevail Underwear) famotidine 40 mg tablet (Pepcid) 80 mg PO BID 11/16/23 11/16/23 ipratropium 0.5 mg-albuterol 3 mg 3 ml inhalation QID PRN 11/16/23 11/16/23 (2.5 mg base)/3 mL nebulization soln lactulose 10 gram/15 mL oral 10 g PO DAILY 11/16/23 11/16/23 solution (Constulose) magnesium oxide 400 mg PO BID 11/16/23 11/16/23 pregabalin 150 mg capsule 150 mg PO BID 11/16/23 11/16/23 Previous Rx's Medication Instructions Recorded albuterol sulfate 2.5 mg/3 mL 2.5 mg (3 mL) inhalation Q4H PRN 08/06/15 (0.083 %) solution for nebulization PRN #30 mL ascorbic acid (vitamin C) 500 mg 1,000 mg (2 x 500 mg) PO BID #120 08/18/21 tablet (Vitamin C) tabs cholecalciferol (vitamin D3) 25 2,000 units PO DAILY #20 tabs 08/18/21 mcg (1,000 unit) tablet polyethylene glycol 3350 17 gram 17 g PO BID #60 ea 08/18/21 oral powder packet pramipexole 0.5 mg tablet 1 mg (2 x 0.5 mg) PO DAILY@1700 08/18/21 #60 tabs sennosides 8.6 mg-docusate sodium 1 tab PO BID #60 tabs 08/18/21 50 mg tablet (Colace 2-In-1) naloxone 4 mg/actuation nasal 4 mg intranasal Q2-3M PRN opioid 08/19/21 spray (Narcan) overdose #2 ea cephalexin 500 mg capsule 500 mg PO BID Cellulitis 10 days 11/16/23 #20 caps Allergies Allergy/AdvReac Type Severity Reaction Status Date / Time hydrocodone [From Vicodin] AdvReac Mild Other (See Unverified 11/16/23 11:27 Comment) oxycodone HCl [From Percocet] AdvReac Mild VOMITING Unverified 11/16/23 11:27 acetaminophen AdvReac Has liver Unverified 11/16/23 11:27 disease-does not use codeine [Codeine] AdvReac VOMITING Unverified 11/16/23 11:27 ibuprofen AdvReac Has liver Unverified 11/16/23 11:27 disease does not use General Stated Complaint: Vascular SHRUTHI: 3 Review of Systems All systems reviewed & are unremarkable except as noted in HPI and below Cardiovascular Cardiovascular: Reports chest pain, Reports pedal edema, Reports leg edema, Reports dyspnea, Reports dyspnea on exertion and Reports orthopnea Respiratory Respiratory: Reports chest congestion, Reports cough, Reports dyspnea, Reports dyspnea on exertion and Reports wheezing Integumentary/Breasts Skin/Breast: Reports as per HPI, Reports erythema, Reports skin pain and Reports skin swelling Allergic/Immunologic Allergic/Immunologic: Reports wheezing Exam Narrative Exam Narrative: Constitutional: Awake, alert, appears stated age, pursed lip breathing, increased work of breathing, no cyanosis. No diaphoresis. Patient is obese. HEENT: Normocephalic, no signs of trauma , TMs WNL bilaterally, No JVD. Lungs: Increased work of breathing, coughing rhonchi auscultated to left side. Diminished on the right. Cardiac: RRR, No rubs, gallops, or murmurs Extremities: 2+ pitting edema noted to bilateral lower extremities with erythema. No drainage. Neuro: A&O x 4, no focal neuro deficits noted. Course Vital Signs Vital signs: Vital Signs Temperature 36.6 C 11/16/23 11:17 Pulse 89 11/16/23 11:17 Respiratory Rate 18 11/16/23 11:17 Blood Pressure 133/91 H 11/16/23 11:17 Pulse Oximetry 95 11/16/23 11:17 Temperature 36.6 C 11/16/23 11:17 Temperature Source Temporal Artery Scan 11/16/23 11:17 Pulse 89 11/16/23 11:17 Respiratory Rate 18 11/16/23 11:17 Blood Pressure 133/91 H 11/16/23 11:17 Blood Pressure Position Sitting 11/16/23 11:17 Pulse Oximetry 95 11/16/23 11:17 Oxygen Delivery Method Nasal Cannula 11/16/23 11:17 Oxygen Flow Rate 3 11/16/23 11:17 Pain Level 8 11/16/23 11:17 Comment normally only uses 2 lpm oxygen at night 11/16/23 11:17 Medical Decision Making 63-year-old female with past medical history of COPD, obesity, CHF anxiety migraines multiple sclerosis and obstructive sleep apnea presents to the ER with a chief complaint of increased swelling to her bilateral lower extremities. She reports that they are painful and red. She is having a coughing fit on my initial examination and having trouble speaking in full sentences. She also endorses chest pain. She does normally wear oxygen at home and is wearing oxygen at this time. She has been coughing up frothy white sputum. She also reports a low-grade fever. She is on 80 mg of Lasix twice daily which she reports taking those as directed. She also reports cramps in her legs. She does have some expiratory rhonchi on auscultation of her left upper lobe. Workup ordered including CBC CMP troponin, chest x-ray DuoNeb Solu-Medrol IV, VBG, chest x-ray and bilateral lower extremity ultrasounds to rule out DVT. Differential diagnosis includes not limited to COPD exacerbation cellulitis, DVT, CAD Ultrasound bilateral lower extremities negative for DVT. proBNP within normal limits, no leukocytosis. Chest x-ray shows nothing acute however this is not underexposed x-ray. Labs are largely at baseline troponin negative. Will plan to discharge patient with cellulitis and cephalexin. Patient was given morphine here in the department for leg cramps. Patient discharged in the care of her family, given discharge instructions follow-up care. This text was generated using [employer] system, please disregard any oddities of phrase or misspellings. Imaging Data Radiologic Study: Imaging: X-Ray Radiologist's impression: EXAM: XR PORTABLE CHEST AP CLINICAL HISTORY: SOB, CP TECHNIQUE: 2D digital imaging was performed. COMPARISON: CR,XR XR CHEST 2V PA LATERAL from 09/14/2023 FINDINGS: Exam is limited by under penetration at the lung bases an overlying monitoring leads. The lungs are also not well inflated. LUNGS: Clear. No pleural abnormality seen. HEART: Normal size. AORTA: Normal diameter. BONES: Unremarkable for age. Soft tissues: Unremarkable. IMPRESSION: Limited exam. No acute findings. Lab Data Lab results reviewed: Yes I reviewed the patient's lab results. Labs: 11/16/23 12:35 Blood Blood Culture - Pending 11/16/23 12:04 Blood Blood Culture - Pending Laboratory Tests Range/Units 11/16/23 12:04 WBC (4.4-10.8) 10^3/uL 6.55 RBC (3.93-5.22) 10^6/uL 4.85 Hgb (11.2-15.7) g/dL 15.3 Hct (36.0-46.0) % 46.2 H MCV (80-95) fL 95 MCH (27.0-33.0) pg 31.5 MCHC (32.0-36.0) % 33.1 RDW (11.7-14.6) % 12.9 Plt Count (130-400) 10^3/uL 222 MPV (8.0-11.0) fL 10.1 Immature Gran % 0.3 Neutrophils % 61.5 Lymphocytes % 28.7 Monocytes % 9.2 Eosinophils % 0.0 Basophils % 0.3 Nucleated RBC % (0.0-0.3) % 0.0 Absolute Neutrophils (1.2-6.7) 10^3/uL 4.03 Absolute Lymphocytes (1.2-3.4) 10^3/uL 1.88 Absolute Monocytes (0.1-0.8) 10^3/uL 0.60 Absolute Eosinophils (0.0-0.7) 10^3/uL 0.00 Absolute Basophils (0.0-0.2) 10^3/uL 0.02 VBG pH (7.31-7.41) 7.42 H VBG pCO2 (41-51) mmHg 59 H VBG pO2 mmHg 56 VBG HCO3 (23-28) mmol/L 38 H VBG Total CO2 (24-29) mmol/L 33 H VBG O2 Saturation % 91 VBG Base Excess (-2-3) mmol/L 13 H VBG Lactate (0.6-1.4) mmol/L 1.7 H Sodium (136-145) mmol/L 137 Potassium (3.5-5.1) mmol/L 4.0 Chloride (98-107) mmol/L 95 L Carbon Dioxide (21.0-32.0) mmol/L 35.7 H Anion Gap (3-11) mmol/L 6.3 BUN (7-18) mg/dL 12 Creatinine (0.55-1.02) mg/dL 1.0 Est GFR (CKD-EPI 2020) (mL/min/1.73m2) 63.30 Glucose (74-106) mg/dL 222 H Calcium (8.5-10.1) mg/dL 9.1 Magnesium (1.8-2.4) mg/dL 2.4 Total Bilirubin (0.2-1.0) mg/dL 0.6 AST (15-37) U/L 71 H ALT (14-59) U/L 123 H Alkaline Phosphatase (46-116) U/L 130 H Troponin I (< or =60) ng/L < 50 NT-Pro-B Natriuret Pep (<300) pg/mL 19 Total Protein (6.4-8.2) g/dL 8.4 H Albumin (3.4-5.0) g/dL 3.5 Quality:SDOH Health Related Social Needs: No Data to Display PFSH All Active Problems (Updated 11/16/23 @ 13:56 by Viky Orellana NP) Bilateral cellulitis of lower leg (Acute) Thrush, oral (Acute) Chronic respiratory failure with hypoxia (Chronic) COVID-19 (Acute) Restless leg syndrome (Acute) Acute exacerbation of chronic obstructive pulmonary disease (Acute) Lumbago with sciatica, right side (Acute) Medical History Obstructive sleep apnea Multiple sclerosis Migraine Kidney stones Anxiety COPD (chronic obstructive pulmonary disease) CHF (congestive heart failure) Surgical History History of knee surgery History of hysterectomy H/O section S/P colectomy Hx of cholecystectomy Social History Smoking/Tobacco Use Status: Former Tobacco Use Smoking risk assessment performed?: Yes Alcohol Intake: never Drug use: Never Substance use type: does not use Do you feel safe at home: Yes Do you feel safe in your relationship?: Yes
[2023-11-16 12:10] LABS: BE (Venous) 13 mmol/L (-2-3); HCO3 (Venous) 38 mmol/L (23-28); O2 Sat (Venous) 91 %; TCO2 (Venous) 33 mmol/L (24-29); pCO2 (Venous) 59 mmHg (41-51); pH (Venous) 7.42 (7.31-7.41); pO2 (Venous) 56 mmHg
[2023-11-16 12:11] LABS: Abs Immature Grans 0.02 10^3/uL (0.0-0.06); Absolute Basophil Count 0.02 10^3/uL (0.0-0.2); Absolute Lymphocyte Count 1.88 10^3/uL (1.2-3.4); Absolute Neutrophil Count 4.03 10^3/uL (1.2-6.7); Basophils % 0.3; HCT 46.2 % (36.0-46.0); HGB 15.3 g/dL (11.2-15.7); Immature Grans % 0.3; Lymphocytes % 28.7; MCH 31.5 pg (27.0-33.0); MCHC 33.1 % (32.0-36.0); MCV 95 fL (80-95); MPV 10.1 fL (8.0-11.0); Monocytes % 9.2; Neutrophils % 61.5; Platelet Count 222 10^3/uL (130-400); RBC 4.85 10^6/uL (3.93-5.22); RDW 12.9 % (11.7-14.6); RDW-SD 45.2 fL; WBC 6.55 10^3/uL (4.4-10.8)
[2023-11-16 12:13] LABS: Lactate 1.7 mmol/L (0.6-1.4)
[2023-11-16] MEDS: cefTRIAXone 1 GM/50 ML BAG IVPB (12:15)
[2023-11-16] MEDS: methylPREDNISolone SUCC 125 MG VIAL IVP (12:15)
[2023-11-16] MEDS: Albuterol/Ipratropium 3 ML UPD VIAL UPD (12:15)
[2023-11-16 12:35] LABS: ALT 123 U/L (14-59); AST 71 U/L (15-37); Albumin 3.5 g/dL (3.4-5.0); Alkaline Phosphatase 130 U/L (46-116); Anion Gap 6.3 mmol/L (3-11); BUN 12 mg/dL (7-18); Bilirubin, Total 0.6 mg/dL (0.2-1.0); CO2 35.7 mmol/L (21.0-32.0); Calcium 9.1 mg/dL (8.5-10.1); Chloride 95 mmol/L (98-107); Glucose 222 mg/dL (74-106); Magnesium 2.4 mg/dL (1.8-2.4); Sodium 137 mmol/L (136-145); Total Protein 8.4 g/dL (6.4-8.2); Troponin I < 50 ng/L (< or =60)
--- NOTE | 2023-11-16 12:40 | DI.US_ITS ---
Exam(s) US EXTREMITY VENOUS BI EXAM: US EXTREMITY VENOUS BI CLINICAL HISTORY: Swelling, Pain. TECHNIQUE: Bilateral lower extremity venous ultrasound performed using grayscale, color-flow, and sp ectral Doppler analysis. COMPARISON: No exams were available for comparison FINDINGS: The right common femoral, femoral and popliteal veins demonstrate normal compressibility, augmentatio n, and color Doppler. The posterior tibialis veins could not be visualized on this examination. The saphenofemoral junction is unremarkable. There is no evidence of a Nino's cyst. The soft tissues ar e unremarkable. The left common femoral, femoral and popliteal veins demonstrate normal compressibility, augmentation , and color Doppler. The posterior tibial veins are patent. The saphenofemoral junction is unremarka ble. There is no evidence of a Nino's cyst. The soft tissues are unremarkable. IMPRESSION: 1. No evidence of a right lower extremity DVT. 2. No evidence of a left lower extremity DVT. DATA REPOSITORY:
[2023-11-16 12:54] LABS: NT-proBNP 19 pg/mL (<300)
[2023-11-16] MEDS: MORPHine 10 MG/ML VIAL 2 MG IVP (13:05)
== END 2023-11-16 14:14 | disposition home or self-care (01) ==
PROVIDERS: Emergency Provider Registered Nurse Emergency; PCP Nurse Practitioner Family
DX: L03.115 Cellulitis of right lower limb (principal); L03.116 Cellulitis of left lower limb; G35 Multiple sclerosis; J44.9 Chronic obstructive pulmonary disease, unspecified; I11.0 Hypertensive heart disease with heart failure; I50.9 Heart failure, unspecified
CPT/HCPCS: 36415; 80053; 82805; 87040; 93005; 96365; 96375; 99285; 71045; 83605; 83735; 83880; 84484; 85025; 93010; 93970; 99284; J0696; J2270; J2930; J7620

== ENCOUNTER 2024-02-12 17:21 | Emergency (ER) | payer MEDICARE, MEDICAID, SELFPAY ==
[2024-02-12 17:24] VITALS: BP 103/69; PULSE 81; RESP 16; TEMP 36.5; O2SAT 94
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
[2024-02-12 20:12] VITALS: BP 106/60; PULSE 80; RESP 16; TEMP 36.7; O2SAT 96
== END 2024-02-12 21:06 | disposition home or self-care (01) ==
PROVIDERS: Emergency Provider Emergency Medicine; PCP Nurse Practitioner Family
DX: T23.262A Burn of second degree of back of left hand, initial encounter (principal); X10.2XXA Contact with fats and cooking oils, initial encounter
CPT/HCPCS: 16020; 99283; 99284

== ENCOUNTER 2024-04-02 15:45 | Outpatient (CLI) | payer MEDICARE, MEDICAID, SELFPAY ==
--- NOTE | 2024-04-02 15:40 | DI.US_ITS ---
Exam(s) US LOWER EXTREMITY VENOUS RT EXAM: US LOWER EXTREMITY VENOUS RT CLINICAL HISTORY: M79.661 Pain in RT lower leg TECHNIQUE: Grayscale, color, and doppler imaging of the deep venous system of the right lower extrem ity was performed. COMPARISON: US US EXTREMITY VENOUS BI from 11/16/2023 FINDINGS: There is no evidence of intraluminal thrombus and there is normal compression and augmentation demons trated within the common femoral vein, femoral vein, and popliteal vein. In the ipsilateral calf the interrogated veins also exhibit normal compression/ augmentation properti es. The ipsilateral saphenofemoral junction is patent. There is some edema in the soft tissues of the posterior aspect of the right calf corresponding to th is patient's area of erythema and pain. There are no thrombosed superficial veins at this level IMPRESSION: 1. No evidence of DVT in the right lower extremity. 2. Area edema in the soft tissues the posterior calf corresponding to skin redness and apparent pain . There does not appear to be a formed abscess nor thrombosed superficial vein at this level on the images provided. DATA REPOSITORY:
== END 2024-04-02 16:05 ==
PROVIDERS: PCP Nurse Practitioner Family; Visit Provider Nurse Practitioner Family
DX: M79.661 Pain in right lower leg (principal)
CPT/HCPCS: 36415; 80053; 80061; 81003; 81015; 82043; 82105; 82570; 82607; 83735; 84439; 84443; 85025; 93971

== ENCOUNTER 2024-04-02 16:22 | Outpatient (CLI) | payer MEDICARE, MEDICAID, SELFPAY ==
[2024-04-02 17:15] LABS: Abs Immature Grans 0.04 10^3/uL (0.0-0.06); Absolute Basophil Count 0.02 10^3/uL (0.0-0.2); Absolute Lymphocyte Count 1.77 10^3/uL (1.2-3.4); Absolute Monocyte Count 0.63 10^3/uL (0.1-0.8); Absolute Neutrophil Count 7.34 10^3/uL (1.2-6.7); Basophils % 0.2 %; HCT 47.1 % (36.0-46.0); HGB 15.2 g/dL (11.2-15.7); Immature Grans % 0.4 %; Lymphocytes % 18.1 %; MCH 31.5 pg (27.0-33.0); MCHC 32.3 % (32.0-36.0); MCV 98 fL (80-95); MPV 10.4 fL (8.0-11.0); Monocytes % 6.4 %; Neutrophils % 74.9 %; Platelet Count 241 10^3/uL (130-400); RBC 4.83 10^6/uL (3.93-5.22); RDW 12.5 % (11.7-14.6); RDW-SD 45.1 fL
[2024-04-02 17:40] LABS: Bilirubin Negative (Negative); Blood Negative (Negative); Clarity Sl Cloudy (Clear); Glucose >=1000 mg/dL (Negative); Ketones Negative (Negative); Leukocyte Esterase Negative (Negative); Nitrite Negative (Negative); Specific Gravity 1.015 (1.005-1.025); Urobilinogen 0.2 mg/dL (Up to 0.2); pH 7.5 (5-8)
[2024-04-02 17:47] LABS: Bacteria Negative HPF (Negative); Epithelial Cells Rare HPF (Negative); RBC Negative HPF (0-2); WBC Negative HPF (0-5)
[2024-04-02 17:48] LABS: C & S Indicated? No; Casts Negative LPF (Negative); Crystals Few Amorphous HPF (Negative); Mucus Trace (Negative)
[2024-04-02 18:08] LABS: ALT 91 U/L (14-59); AST 69 U/L (15-37); Albumin 3.4 g/dL (3.4-5.0); Alkaline Phosphatase 95 U/L (46-116); Anion Gap 4.3 mmol/L (3-11); BUN 11 mg/dL (7-18); CO2 38.7 mmol/L (21.0-32.0); CREATININE 0.9 mg/dL (0.55-1.02); Calcium 9.7 mg/dL (8.5-10.1); Calculated LDL 120 mg/dL (<100); Chloride 98 mmol/L (98-107); Cholesterol 193 mg/dL (<200); Estimated GFR 71.39 (mL/min/1.73m2); Glucose 117 mg/dL (74-106); HDL Cholesterol 46 mg/dL (40-60); Magnesium 2.2 mg/dL (1.8-2.4); Sodium 141 mmol/L (136-145); TSH (W/Ref FT4) 6.06 uIU/mL (0.36-3.74); Total Protein 8.5 g/dL (6.4-8.2); Triglyceride 137 mg/dL (<150); Vitamin B12 581 pg/mL (193-986)
[2024-04-02 19:17] LABS: Potassium 2.8 mmol/L (3.5-5.1)
[2024-04-02 19:36] LABS: FREE T4 1.24 ng/dL (0.76-1.46)
[2024-04-03 18:31] LABS: AFP Tumor Marker 4.2 ng/mL (<8.1)
[2024-04-04 20:48] LABS: COMMENT (LAB VIEW ONLY) 51.97 mg/dL; Microalb ug/mg Crea 8.7 ug/mg Cr
== END 2024-04-02 16:23 | disposition home or self-care (01) ==
LOC: LBO 16:23
PROVIDERS: PCP Nurse Practitioner Family; Visit Provider Nurse Practitioner Family
DX: E11.9 Type 2 diabetes mellitus without complications (principal); K74.60 Unspecified cirrhosis of liver; E02 Subclinical iodine-deficiency hypothyroidism; I70.90 Unspecified atherosclerosis
CPT/HCPCS: 36415; 80053; 80061; 81003; 81015; 82043; 82105; 82570; 82607; 83735; 84439; 84443; 85025

== ENCOUNTER 2024-04-04 10:50 | Outpatient (CLI) | payer MEDICARE, MEDICAID, SELFPAY ==
[2024-04-04 10:45] LABS: Anion Gap 6.8 mmol/L (3-11); BUN 12 mg/dL (7-18); CO2 36.2 mmol/L (21.0-32.0); CREATININE 0.9 mg/dL (0.55-1.02); Calcium 9.1 mg/dL (8.5-10.1); Chloride 97 mmol/L (98-107); Estimated GFR 71.39 (mL/min/1.73m2); Glucose 228 mg/dL (74-106); Potassium 3.4 mmol/L (3.5-5.1); Sodium 140 mmol/L (136-145)
== END 2024-04-04 10:51 | disposition home or self-care (01) ==
PROVIDERS: PCP Nurse Practitioner Family; Visit Provider Nurse Practitioner Family
DX: E87.6 Hypokalemia (principal)
CPT/HCPCS: 36415; 80048